=== PATIENT | female | born 1935 | race Caucasian/White ===

== ENCOUNTER → 2017-09-21 13:25 | Outpatient (CLI) | payer MEDICARE, SELFPAY ==
--- NOTE | 2017-09-21 13:47 | XR_ITS ---
XR chest 2V HISTORY: ITS.REASON: SOB, DM II , CHF ORDERING PHYSICIAN: Carlton Munoz PATIENT AGE: 82 years COMPARISON: 01/03/2017 FINDINGS: Cardiac pacemaker device is present with right atrial, and biventricular leads. There is mild cardiomegaly without failure. The lungs are clear without infiltrates, suspicious nodules, or pleural effusions. Small opacities are present over the anterior aspect of the chest with artifact No acute bony abnormalities. IMPRESSION: 1. Mild cardiomegaly with cardiac pacemaker device present. 2. Otherwise negative. No change with no acute finding
[2017-09-21 14:00] LABS: Basophils # 0.1 K/mm3 (0-0.2); Basophils % 0.6 % (0.1-2.0); Eosinophils # 0.4 K/mm3 (0.0-0.4); Eosinophils % 4.1 % (0.1-12.0); Hematocrit 41.8 % (37.0-47.0); Hemoglobin 13.6 g/dL (12.2-16.2); Lymphocytes # 3.8 K/mm3 (0.7-4.5); Lymphocytes % 39.1 K/mm3 (10-50); Mean Corpuscular HGB Conc 32.6 g/dL (31.8-35.4); Mean Corpuscular Hemoglobin 30.1 pg (27.0-31.2); Mean Corpuscular Volume 92.5 fl (81-99); Mean Platelet Volume 8.7 fl (7.4-10.4); Monocytes # 0.5 K/mm3 (0.1-1.0); Monocytes % 4.9 % (1.7-9.3); Neutrophils % 51.3 % (37.0-80.0); Platelet Count 202 K/mm3 (142-424); Red Blood Count 4.52 M/mm3 (4.20-5.40); Red Cell Distribution Width 12.7 % (11.5-17.5); White Blood Count 9.8 K/mm3 (4.8-10.8)
[2017-09-21 15:20] LABS: Hemoglobin A1C 6.9 % (0.0-7.0)
[2017-09-21 17:33] LABS: Anion Gap 10.2 mEq/L (5-15); Blood Urea Nitrogen 30 mg/dL (7-18); Carbon Dioxide 31 mmol/L (21.0-32.0); Chloride 102 mmol/L (98-107); Creatinine,Serum 1.29 mg/dL (0.55-1.02); Estimated Glomerular Filt Rate 40 ml/min (>60); GFR (African American) 48 ML/MIN (>60); Glucose 178 mg/dL (74-106); Potassium 4.2 mmoL/L (3.5-5.1); Sodium 139 mmol/L (136-145); Thyroid Stimulating Hormone 3.29 uIU/ml (0.358-3.740)
== END ==
PROVIDERS: PCP Family Medicine; Visit Provider Internal Medicine Cardiovascular Disease
DX: I50.9 Heart failure, unspecified (principal); E11.9 Type 2 diabetes mellitus without complications; R06.02 Shortness of breath
CPT/HCPCS: 36415; 71046; 80048; 83036; 83880; 84443; 85025

== ENCOUNTER → 2018-01-09 14:20 | Outpatient (CLI) | payer MEDICARE, SELFPAY ==
--- NOTE | 2018-01-09 | XR_ITS ---
XR foot LT min 3V HISTORY: Foot pain ITS.REASON: HEEL SPUR ORDERING PHYSICIAN: JULIA Mayes PATIENT AGE: 82 years COMPARISON: None FINDINGS: No fracture or dislocation. No lytic or blastic change. There is normal mineralization.. The joint spaces are well-preserved. No significant degenerative/arthritic changes. No erosive changes evident. There is a small calcaneal spur at 5 mm without erosive change IMPRESSION: Small calcaneal spur otherwise negative left foot
--- NOTE | 2018-01-09 14:26 | XR_ITS ---
XR tibia fibula LT 2V CLINICAL INDICATION: Posttraumatic pain ITS.REASON: INJURY OF LEFT LOWER EXTREMITY ORDERING PHYSICIAN: JULIA Mayes PATIENT AGE: 82 years Comparison: None FINDINGS: No fracture or dislocation. Minimal pretibial calcification noted along the lower tibia consistent with phleboliths IMPRESSION: No acute finding
== END ==
PROVIDERS: PCP Family Medicine; Visit Provider Physician Assistant
DX: S89.92XA Unspecified injury of left lower leg, initial encounter (principal); M79.672 Pain in left foot
CPT/HCPCS: 73590; 73630

== ENCOUNTER → 2018-06-04 10:22 | Outpatient (POV) | payer MEDICARE, SELFPAY | PROVIDERS: Visit Provider Dermatology | DX: Z00.00 Encounter for general adult medical examination without abnormal findings (principal) ==

== ENCOUNTER → 2019-06-24 16:18 | Outpatient (CLI) | payer MEDICARE, SELFPAY | PROVIDERS: Visit Provider Urology | DX: N39.0 Urinary tract infection, site not specified (principal) | CPT/HCPCS: 87086; 87088; 87186 ==

== ENCOUNTER → 2020-05-25 13:00 | Outpatient (CLI) | payer MEDICARE, SELFPAY | PROVIDERS: PCP Family Medicine; Visit Provider Family Medicine | DX: G47.33 Obstructive sleep apnea (adult) (pediatric) (principal); G47.10 Hypersomnia, unspecified | CPT/HCPCS: G0399 ==

== ENCOUNTER → 2020-06-10 11:59 | Outpatient (CLI) | payer MEDICARE, SELFPAY ==
[2020-06-10 13:43] LABS: Basophils # 0.1 K/mm3 (0-0.2); Eosinophils % 0.7 % (0.1-12.0); Hematocrit 42.1 % (37.0-47.0); Hemoglobin 13.4 g/dL (12.2-16.2); Lymphocytes % 31.8 % (10-50); Mean Corpuscular HGB Conc 31.9 g/dL (31.8-35.4); Mean Corpuscular Hemoglobin 30.7 pg (27.0-31.2); Mean Corpuscular Volume 96.4 fl (81-99); Mean Platelet Volume 9.5 fl (7.4-10.4); Monocytes # 0.6 K/mm3 (0.1-1.0); Monocytes % 8.7 % (1.7-9.3); Neutrophils # 3.7 K/mm3 (1.8-7.8); Neutrophils % 57.9 % (37.0-80.0); Platelet Count 138 K/mm3 (142-424); Red Blood Count 4.36 M/mm3 (4.20-5.40); Red Cell Distribution Width 12.7 % (11.5-17.5); White Blood Count 6.4 K/mm3 (4.8-10.8)
[2020-06-11 14:23] LABS: Covid-19 Nasal PCR Sendout Lex POSITIVE
== END ==
PROVIDERS: PCP Family Medicine; Visit Provider Family Medicine
DX: Z20.828 Contact with and (suspected) exposure to other viral communicable diseases (principal); U07.1 COVID-19
CPT/HCPCS: 85025; 87275; 87276; U0004

== ENCOUNTER 2020-06-11 15:57 | Emergency (ER) | payer MEDICARE, SELFPAY ==
[2020-06-11 16:03] VITALS: BP 185/89; PULSE 82; RESP 16; TEMP 36.8; O2SAT 98; BMI 31.4
[2020-06-11 16:27] VITALS: BP 171/86; PULSE 71; RESP 18; O2SAT 96
--- NOTE | 2020-06-11 16:35 | ECG_ITS ---
APPROVED REPORT Exam: Resting ECG HR:79 bpm ECG Measurements Heart Rate 79 AXES TX 262 P 69 QRSd 164 QRS 148 QT 486 T 21 QTc 557 Conclusion Electronic ventricular pacemaker Electronically signed by : Joseph Pettit, 06/28/2020 16:42:47
--- NOTE | 2020-06-11 16:41 | CT_ITS ---
PROCEDURE: CT CHEST WO CON CLINICAL INDICATION: SOB Shortness of breath, smoker, tested positive for COVID 19 virus COMPARISON: CT [facility] CT CHEST W/O CONTRAST from 03/01/2015 TECHNIQUE: Axial images obtained with sagittal and coronal reformats. All CT scans at the facility use one or more dose reduction, viz: automated exposure control, ma/kV adjustment per patient size (including targeted exams where dose is matched to indication, i.e. head), or iterative reconstruction technique. FINDINGS: Cardiac pacemaker device is present from left subclavian approach. There is a small hiatal hernia. Is biapical scarring. There is a 4 mm noncalcified nodule left upper lobe image 27 series 3. Atelectatic or fibrotic changes are present in the left lower lobe. There is an area of consolidation involving the superior segment of left lower lobe in the perihilar region consistent with pneumonia. No effusions. 4 mm nodules present in the right upper lobe series 3, image 33 unchanged. No effusions. No acute bony anomalies. Upper abdominal images show fatty liver and small hiatal hernia. Small nodes are present in the periportal region. IMPRESSION: Rounded area of heterogeneous consolidation in the left lower lobe consistent with pneumonia Other nonacute findings as described above Dictated by: Sánchez Goldberg MD 06/12/2020 08:18 Sánchez Goldberg MD in [place] 06/12/2020 08:18
--- NOTE | 2020-06-11 16:43 | HMH.EDSOB ---
ED Disposition Clinical Impression: Community acquired pneumonia Qualifiers: Laterality: left Lung location: lower lobe of lung Qualified Code(s): J18.9 - Pneumonia, unspecified organism Disposition: Home, Self-Care Condition on Discharge: Fair Instructions: DI for Pneumonia -- Adult, DI for Heart Failure Additional Instructions: Your labs CBC CMP are essentially within normal limits ABG shows normal findings troponin is not elevated AST and ALT are mildly elevated at 111 and 84 respectively her BNP is elevated at 1630; CT of the chest shows the following rounded area of heterogenous consolidation in left lower lobe suspicious for an infectious or inflammatory process such as viral pneumonia or ongoing pneumonia; oxygen saturation is 97% on room air; findings were discussed with Dr. Quintero who is bottom ironer and advises to cover her for pneumonia with Levaquin 1 dose here and then to be followed up at home; so we will give her 40 mg IV Lasix due to her history of an diagnosis of congestive heart failure Please do not hesitate to call us in case of any concerns Prescriptions: levoFLOXacin [Levaquin 500mg tab] 500 mg PO DAILY #7 tablet Referrals: Luc Corado MD [Primary Care Provider] - Time of Disposition: 19:01 - Critical Care Critical Care Time: No Attestation: On 06/11/20, the high probability of a clinically significant, sudden or life threatening deterioration of the following system(s) required my full and direct attention, intervention and personal management. The time I documented below is in addition to time spent performing reported procedures but includes the following listed in this critical care notation. Medical Decision Making - Medical Records Medical records reviewed: Yes: I reviewed the patient's medical records. MR Comment: Patient states that she had not been feeling well for several days and then went into dr Corado's office and got the news that she has been diagnosed with COVID 19. This made her very anxious and felt that she is short of breath. Dr Corado then sent her to the ER for further evaluation. Patient's labs and her CBC CMP are essentially within normal limits ABG shows normal findings troponin is not elevated AST and ALT are mildly elevated at 111 and 84 respectively her BNP is elevated at 1630; CT of the chest shows the following rounded area of heterogenous consolidation in left lower lobe suspicious for an infectious or inflammatory process such as viral pneumonia or ongoing pneumonia; Patient is stable with vital signs blood pressure is 162/84 heart rate is 110 pulse is 74 respirations are 20 and oxygen saturation is 97% on room air; findings were discussed with Dr. Quintero who is bottom ironer and advises to cover her for pneumonia with Levaquin 1 dose here and then to be followed up at home so we will give her 40 mg IV Lasix due to her history of an diagnosis of congestive heart failure patient does not wish to stay in the hospital and she has good support at home she herself is quite alert and active and has 2 daughters to call upon in case of any concerns and Dr. Quintero has is quite aware of patient - Peter Inquiry Pt receiving controlled substance: No Vital Signs: 06/11/20 16:03 06/11/20 16:27 06/11/20 17:01 Temperature 98.2 F Temperature Source Oral Pulse Rate [Radial] 82 71 74 Respiratory Rate 16 18 20 Blood Pressure [Right Arm] 185/89 H 171/86 H 162/84 H Blood Pressure Mean [Right Arm] 121 114 110 Blood Pressure Source [Right Arm] Automatic Cuff Automatic Cuff Blood Pressure Position [Right Arm] Sitting Sitting Sitting 02 Sat by Pulse Oximetry 98 96 97 Oxygen Delivery Method Room Air Room Air - Lab Data Lab results reviewed: Yes: I reviewed the patient's lab results. Lab Results 06/11/20 16:25: WBC 6.7, RBC 4.50, Hgb 14.0, Hct 42.6, MCV 94.6, MCH 31.1, MCHC 32.9, RDW 12.8, Plt Count 141 L, MPV 9.3, Neut % (Auto) 49.5, Lymph % (Auto) 41.8, [place] % (Auto) 6.8, Eos
[2020-06-11 17:00] LABS: Basophils # 0.1 K/mm3 (0-0.2); Basophils % 1.4 % (0.1-2.0); Eosinophils % 0.4 % (0.1-12.0); Hematocrit 42.6 % (37.0-47.0); Lymphocytes # 2.8 K/mm3 (0.7-4.5); Lymphocytes % 41.8 % (10-50); Mean Corpuscular HGB Conc 32.9 g/dL (31.8-35.4); Mean Corpuscular Hemoglobin 31.1 pg (27.0-31.2); Mean Corpuscular Volume 94.6 fl (81-99); Mean Platelet Volume 9.3 fl (7.4-10.4); Monocytes # 0.5 K/mm3 (0.1-1.0); Monocytes % 6.8 % (1.7-9.3); Neutrophils # 3.3 K/mm3 (1.8-7.8); Neutrophils % 49.5 % (37.0-80.0); Platelet Count 141 K/mm3 (142-424); Red Cell Distribution Width 12.8 % (11.5-17.5); White Blood Count 6.7 K/mm3 (4.8-10.8)
[2020-06-11 17:01] VITALS: BP 162/84; PULSE 74; RESP 20; O2SAT 97
[2020-06-11 17:04] LABS: ABG Base Excess 0.1 mmol/L (-2.4-2.3); ABG HCO3 24.3 mmhg (22.0-26.0); ABG Oxygen Saturation 96 % (90-100); ABG PCO2 36.9 mmhg (35.0-45.0); ABG PH 7.44 mmol/L (7.35-7.45); ABG PO2 80.7 mmhg (80-100); ABG TCO2 25.4 mmhg (23-27)
[2020-06-11 17:05] LABS: Chloride 99 mmol/L (98-107); Sodium 136 mmol/L (136-145)
[2020-06-11 17:06] LABS: Potassium 4.2 mmoL/L (3.5-5.1)
[2020-06-11 17:07] LABS: Allen's Test Acceptable; Oxygen room air %; Source Left Radial
[2020-06-11 17:08] LABS: Alanine Aminotransferase 84 U/L (12-78); Alkaline Phosphatase 89 U/L (38-126); Aspartate Amino Transferase 111 U/L (14-36); Bilirubin,Total 0.5 mg/dl (0.2-1.3); Blood Urea Nitrogen 17 mg/dl (7-17); Creatine Kinase 98 U/L (30-135); Creatinine Clearance Estimated 43 mL/min (50-200); Estimated Glomerular Filt Rate 39 ml/min (>60); GFR (African American) 47 ML/MIN (>60)
[2020-06-11 17:09] LABS: Albumin/Globulin Ratio 1.2 (1.1-1.8); Anion Gap 13.2 mEq/L (5-15); Calcium 8.9 mg/dl (8.4-10.2); Carbon Dioxide 28 mmol/L (22.0-30.0); Globulin 3.3 g/dL (1.3-3.2); Glucose 230 mg/dl (74-100); Total Protein,Serum 7.3 g/dl (6.3-8.2)
[2020-06-11 17:17] LABS: Creatine Kinase MB 0.7 ng/ml (0.0-2.03)
[2020-06-11 17:18] LABS: NT Pro Brain Natriuretic Pep. 1630 pg/mL (0-450)
[2020-06-11 17:22] LABS: Troponin I < 0.01 ng/ml (0.00-0.034)
--- NOTE | 2020-06-11 18:36 | PC.NURSE ---
Dr Leon warner.
[2020-06-11 19:14] VITALS: BP 157/81; PULSE 73; RESP 16; TEMP 36.7; O2SAT 98
== END 2020-06-11 19:19 | disposition home or self-care (01) ==
PROVIDERS: Emergency Provider Emergency Medicine; PCP Family Medicine
DX: U07.1 COVID-19 (principal); J12.89 Other viral pneumonia
CPT/HCPCS: 71250; 80053; 82550; 82553; 82803; 83880; 84484; 85025; 93005; 96374; 99283

== ENCOUNTER 2020-06-12 10:24 | Inpatient (IN) | payer MEDICARE, SELFPAY ==
[2020-06-12] VITALS (12 sets, daily range): BP systolic 123–153; BP diastolic 58–84; PULSE 69–85; RESP 16–20; TEMP 36.9–37.2; O2SAT 93–99; BMI 30.9; BMI 29.3
--- NOTE | 2020-06-12 10:31 | HMH.EDGENADL ---
ED Disposition Clinical Impression: COVID-19, Near syncope Pneumonia Qualifiers: Pneumonia type: due to unspecified organism Laterality: left Lung location: upper lobe of lung Qualified Code(s): J18.9 - Pneumonia, unspecified organism Disposition: Admitted as Observation Condition on Discharge: Fair - Critical Care Critical Care Time: No Attestation: On , the high probability of a clinically significant, sudden or life threatening deterioration of the following system(s) required my full and direct attention, intervention and personal management. The time I documented below is in addition to time spent performing reported procedures but includes the following listed in this critical care notation. Medical Decision Making - Medical Records Medical records reviewed: Yes: I reviewed the patient's medical records. - Peter Inquiry Pt receiving controlled substance: No Vital Signs: 06/12/20 10:24 06/12/20 10:37 06/12/20 10:44 Temperature 98.6 F Temperature Source Oral Pulse Rate [Apical] Pulse Rate [Left Radial] 69 70 Pulse Rate [Orthostatic Lying Left Radial] 70 Pulse Rate [Orthostatic Sitting Left Radial] 72 Pulse Rate [Orthostatic Standing Left Radial] 76 Respiratory Rate 20 Blood Pressure [Orthostatic Lying Right Arm] 148/66 H Blood Pressure [Orthostatic Sitting Right Arm] 152/76 H Blood Pressure [Orthostatic Standing Right Arm] 150/84 H Blood Pressure [Right Arm] 123/74 123/74 Blood Pressure Mean [Right Arm] 90 90 Blood Pressure Source [Right Arm] Automatic Cuff Blood Pressure Position [Right Arm] Sitting 02 Sat by Pulse Oximetry 98 97 Oxygen Delivery Method Room Air Room Air 06/12/20 10:55 06/12/20 11:45 06/12/20 12:21 Temperature Temperature Source Pulse Rate [Apical] Pulse Rate [Left Radial] 69 69 70 Pulse Rate [Orthostatic Lying Left Radial] Pulse Rate [Orthostatic Sitting Left Radial] Pulse Rate [Orthostatic Standing Left Radial] Respiratory Rate Blood Pressure [Orthostatic Lying Right Arm] Blood Pressure [Orthostatic Sitting Right Arm] Blood Pressure [Orthostatic Standing Right Arm] Blood Pressure [Right Arm] 140/66 136/58 L 150/84 H Blood Pressure Mean [Right Arm] 90 84 106 Blood Pressure Source [Right Arm] Automatic Cuff Automatic Cuff Automatic Cuff Blood Pressure Position [Right Arm] Sitting Sitting Sitting 02 Sat by Pulse Oximetry 97 96 95 Oxygen Delivery Method Room Air Room Air Room Air 06/12/20 12:34 06/12/20 13:00 06/12/20 13:06 Temperature 98.9 F Temperature Source Oral Pulse Rate [Apical] 72 Pulse Rate [Left Radial] 69 72 Pulse Rate [Orthostatic Lying Left Radial] Pulse Rate [Orthostatic Sitting Left Radial] Pulse Rate [Orthostatic Standing Left Radial] Respiratory Rate 16 Blood Pressure [Orthostatic Lying Right Arm] Blood Pressure [Orthostatic Sitting Right Arm] Blood Pressure [Orthostatic Standing Right Arm] Blood Pressure [Right Arm] 142/58 H 153/68 H Blood Pressure Mean [Right Arm] 86 96 Blood Pressure Source [Right Arm] Automatic Cuff Automatic Cuff Blood Pressure Position [Right Arm] Sitting Supine 02 Sat by Pulse Oximetry 95 99 Oxygen Delivery Method Room Air Room Air Room Air - Lab Data Lab results reviewed: Yes: I reviewed the patient's lab results. Lab Results 06/12/20 11:25: WBC 6.6, RBC 4.67, Hgb 14.2, Hct 44.2, MCV 94.6, MCH 30.4, MCHC 32.2, RDW 13.3, Plt Count 151, MPV 9.5, Neut % (Auto) 57.1, Lymph % (Auto) 35.8, [place] % (Auto) 6.1, Eos % (Auto) 0.3, Baso % (Auto) 0.7, Neut # (Auto) 3.8, Lymph # (Auto) 2.4, [place] # (Auto) 0.4, Eos # (Auto) 0.0, Baso # (Auto) 0.0 06/12/20 11:25: Sodium 134 L, Potassium 4.4, Chloride 95 L, Carbon Dioxide 29, Anion Gap 14.4, BUN 19 H, Creatinine 1.50 H, Estimated Creat Clear 37, Estimated GFR 33 L, Est GFR ( Amer) 40 L, Glucose 274 H, Calcium 9.0, Total Bilirubin 0.5, AST 90 H, ALT 74, Alkaline Phosphatase 80, Troponin I < 0.01, Total
--- NOTE | 2020-06-12 10:39 | XR_ITS ---
PROCEDURE: XR CHEST PORTABLE CLINICAL HISTORY: weakness Newly diagnosed COVID 19 COMPARISON: CR CXR CHEST(2 VIEWS-NOT PORTABLE) from 03/02/2015 CR CXR CHEST(2 VIEWS-NOT PORTABLE) from 01/03/2017 CR CXR2V XR chest 2V from 09/21/[address] CHEST WO CON from 06/11/2020 FINDINGS: Mild cardiomegaly without failure. Biventricular pacemaker is present from left subclavian approach with right atrial lead. Lungs are clear. No acute bony anomalies. IMPRESSION: No acute findings. Dictated by: Sánchez Goldberg MD 06/12/2020 12:14 Sánchez Goldberg MD in [place] 06/12/2020 12:14
--- NOTE | 2020-06-12 11:11 | ECG_ITS ---
APPROVED REPORT Exam: Resting ECG HR:70 bpm ECG Measurements Heart Rate 70 AXES QRSd 168 QRS 133 QT 486 T 77 QTc 524 Conclusion Electronic ventricular pacemaker Electronically signed by : Remy Corcoran, 06/13/2020 09:40:40
[2020-06-12 11:32] LABS: Basophils % 0.7 % (0.1-2.0); Eosinophils % 0.3 % (0.1-12.0); Hematocrit 44.2 % (37.0-47.0); Hemoglobin 14.2 g/dL (12.2-16.2); Lymphocytes # 2.4 K/mm3 (0.7-4.5); Lymphocytes % 35.8 % (10-50); Mean Corpuscular HGB Conc 32.2 g/dL (31.8-35.4); Mean Corpuscular Hemoglobin 30.4 pg (27.0-31.2); Mean Corpuscular Volume 94.6 fl (81-99); Mean Platelet Volume 9.5 fl (7.4-10.4); Monocytes # 0.4 K/mm3 (0.1-1.0); Monocytes % 6.1 % (1.7-9.3); Neutrophils # 3.8 K/mm3 (1.8-7.8); Neutrophils % 57.1 % (37.0-80.0); Platelet Count 151 K/mm3 (142-424); Red Blood Count 4.67 M/mm3 (4.20-5.40); Red Cell Distribution Width 13.3 % (11.5-17.5); White Blood Count 6.6 K/mm3 (4.8-10.8)
[2020-06-12 11:38] LABS: Chloride 95 mmol/L (98-107); Potassium 4.4 mmoL/L (3.5-5.1); Sodium 134 mmol/L (136-145)
[2020-06-12 11:40] LABS: Blood Urea Nitrogen 19 mg/dl (7-17); Creatinine Clearance Estimated 37 mL/min (50-200); Estimated Glomerular Filt Rate 33 ml/min (>60); GFR (African American) 40 ML/MIN (>60)
[2020-06-12 11:41] LABS: Alanine Aminotransferase 74 U/L (12-78); Albumin Level 3.9 g/dl (3.5-5.0); Albumin/Globulin Ratio 1.3 (1.1-1.8); Alkaline Phosphatase 80 U/L (38-126); Anion Gap 14.4 mEq/L (5-15); Aspartate Amino Transferase 90 U/L (14-36); Bilirubin,Total 0.5 mg/dl (0.2-1.3); Carbon Dioxide 29 mmol/L (22.0-30.0); Glucose 274 mg/dl (74-100); Total Protein,Serum 6.9 g/dl (6.3-8.2)
[2020-06-12 11:53] LABS: Troponin I < 0.01 ng/ml (0.00-0.034)
--- NOTE | 2020-06-12 12:08 | PC.NURSE ---
paging cotton ball machine tender for Dr Corado
--- NOTE | 2020-06-12 12:22 | PC.NURSE ---
Dr Quintero returned call.
--- NOTE | 2020-06-12 12:34 | PC.NURSE ---
Cover Machine Operator aware of admission and will assign bed.
[2020-06-12 14:17] LABS: Troponin I < 0.01 ng/ml (0.00-0.034)
[2020-06-12 15:51] LABS: POC Glucose,Bedside 430 (70-110)
[2020-06-12 17:42] LABS: Troponin I < 0.01 ng/ml (0.00-0.034)
--- NOTE | 2020-06-12 17:58 | PC.NURSE ---
Pt was a new admit this shift from the ER for COVID-19 and Pneumonia. Pt has been pleasant and cooperative. A&O X4. No complaints of pain or SOA. Skin is C/D/I and no edema is noted. Lungs CTA. Pt is on room air with sats. >92%. Pt ambulates with stand-by assistance to/from the bathroom and voids clear, dark, yellow urine without issue. No BM this shift. FSBS result at 1600 was 430 and required 12 units of insulin per sliding scale. Telemetry reveals a paced rhythm. 20 G peripheral IV in the LT AC is patent and infusing NS @ 50 ML/HR. B/P has been slightly elevated since admission and pt reports that she didn't take any of her medications this AM (Including Lisinopril, Bisoprolol, and Amlodipine). Other VSS. Call light within reach. Will continue to monitor.
[2020-06-12 21:22] LABS: POC Glucose,Bedside 69 (70-110)
[2020-06-13] VITALS (7 sets, daily range): BP systolic 142–180; BP diastolic 60–81; PULSE 69–77; RESP 16–20; TEMP 36.2–37.2; O2SAT 93–95; BMI 30.5
--- NOTE | 2020-06-13 04:28 | PC.NURSE ---
shift summary, no acute changes since prior assessment, pt has rested well t/o shift, has had no complaints of SOA, chest pain, has remained afebrile t/o shift, has ambulated to toilet 3 x with standby assistance, lungs remain CTA, pt remains on room air with sats between 93-95%
[2020-06-13 05:27] LABS: POC Glucose,Bedside 111 (70-110)
--- NOTE | 2020-06-13 08:24 | HMH.HP ---
*Admission Date: 06/12/20 *Chief complaint: [place] faint *History of present illness: 84 [address] old patient of Dr. Mei who called the office of A this past , 06/10/20, with a few day history of fever and URI symptoms. Covid 19 swab was ordered and resulted positive the next day and patient was notified. At that time, she stated she had felt short of breath and she thought Covid 19 was a sentence for her. She was directed to come to the ER for an evaluation. She had an extensive work up in the ER on the afternoon of 06/11/20. She was not hypoxic but a CT scan of the chest showed a focal area of pneumonia. Patient was treated with Levaquin and discharged home. The next day, 06/12/20 she was cooking an egg at her stove and felt faint. At that point, she called 911 for transport to [facility] She states she has been having more intestinal issues over the past 24 hours, consisting of Nausea and diarrhea. [facility] History Medical History: Reports:: Atrial Fibrillation, Congestive Heart Failure, Diabetes Mellitus Type 2, Hyperlipidemia, Hypertension, Internal Pacemaker Denies:: Cancer, Diabetes Mellitus Type 1, MRSA *Have you ever received a pneumonia vaccine?: Yes *Have you received a flu vaccine this season?: No Other Medical History: Reports: Hypothyroidism Other Surgeries: Yes: Appendectomy, Cholecystectomy, Colonoscopy, Pacemaker Amputation: No Fractures: No - *Social History Last grade of school completed: Advanced degree Smoking Status: Never smoker Alcohol Intake: never Substance Use Type: denies use *Occupational Status:: retired Housing: house Household Members: other *Travel in the last 8 weeks: None Family Hx:: No significant family history Review of Systems - Constitutional Denies chills, Denies fever(s) - Eyes Denies blurry vision - ENT Denies dizziness - *Cardiovascular Denies chest pain - *Respiratory Reports shortness of breath, Denies cough - *Gastrointestinal Reports nausea - *Genitourinary Reports vaginal discharge (thinks she has a yeast infection) - *Musculoskeletal Denies back pain - Integumentary/Breasts Denies rash - *Neurologic Reports headache(s), Reports weakness - Psychiatric Reports anxiety, Denies confusion Meds Home Medications Medication Instructions Recorded Confirmed Type alprazolam 0.5 mg tablet 0.5 mg PO DAILY 06/24/19 06/12/20 History apixaban 5 mg tablet 5 mg PO BID 06/24/19 06/12/20 History bisoprolol fumarate 5 mg tablet 5 mg PO DAILY 06/24/19 06/12/20 History furosemide 20 mg tablet 20 mg PO DAILY 06/24/19 06/12/20 History levothyroxine 88 mcg tablet 88 mcg PO DAILY 06/24/19 06/12/20 History lisinopril 20 mg tablet 20 mg PO DAILY 06/24/19 06/12/20 History Amlodipine Besylate 5 mg PO DAILY 06/12/20 06/12/20 History Allergies Allergy/AdvReac Type Severity Reaction Status Date / Time bee venom protein (honey bee) Allergy Unknown Unknown Verified 06/12/20 10:49 allergy reaction meperidine Allergy Unknown Unknown Verified 06/12/20 10:49 allergy reaction methylprednisolone Allergy Unknown Hives Verified 06/12/20 10:49 Penicillins Allergy Unknown Unknown Verified 06/12/20 10:49 allergy reaction Exam Vital signs and Labs for Last 24 Hours: Temp Pulse Resp BP Pulse Ox 98.3 F 70 16 155/77 H 95 06/13/20 04:00 06/13/20 04:00 06/13/20 04:00 06/13/20 04:00 06/13/20 04:00 Laboratory Results - last 24 hr 06/12/20 11:25: WBC 6.6, RBC 4.67, Hgb 14.2, Hct 44.2, MCV 94.6, MCH 30.4, MCHC 32.2, RDW 13.3, Plt Count 151, MPV 9.5, Neut % (Auto) 57.1, Lymph % (Auto) 35.8, [place] % (Auto) 6.1, Eos % (Auto) 0.3, Baso % (Auto) 0.7, Neut # (Auto) 3.8, Lymph # (Auto) 2.4, [place] # (Auto) 0.4, Eos # (Auto) 0.0, Baso # (Auto) 0.0 06/12/20 11:25: Sodium 134 L, Potassium 4.4, Chloride 95 L, Carbon Dioxide 29, Anion Gap 14.4, BUN 19 H, Creatinine 1.50 H, Estimated Creat Clear 37, Estimated GFR 33 L, Est GFR ( Amer) 40 L, Gl
[2020-06-13 12:10] LABS: POC Glucose,Bedside 238 (70-110)
[2020-06-13 16:22] LABS: POC Glucose,Bedside 258 (70-110)
--- NOTE | 2020-06-13 17:42 | PC.NURSE ---
Pt has been pleasant and cooperative this shift. A&O X4. No complaints of pain or SOA. Pt has complained of nausea and has been medicated with Zofran per OCT X2. No vomiting. Pt has had 2 episodes of diarrhea thus far. Imodium requested per pt and order received per Dr. Quintero. Given X2 this shift and no occurrence of diarrhea since. Pt educated regarding the need for a diarrhea panel if/when a 3rd episode occurs. Lungs CTA No edema noted. Skin is C/D/I. Pt is on room air with sats. >92%. Pt ambulates with stand-by assistance to/from the bathroom and in her room. Pt sat up in the recliner for a couple hours this AM. Telemetry reveals a paced rhythm. Pt uses the toilet and voids clear, yellow urine without issue. 20 G peripheral IV in the LT AC is patent and infusing NS @ 50 ML/HR. FSBS results have been 238 and 258, both of which required insulin coverage per sliding scale. B/P remains elevated. Other VSS. Call light within reach. Will continue to monitor.
[2020-06-13 20:50] LABS: POC Glucose,Bedside 244 (70-110)
[2020-06-14] VITALS: BP 138/77; PULSE 76; RESP 16; TEMP 36.8; O2SAT 96
--- NOTE | 2020-06-14 03:48 | PC.NURSE ---
shift summary, no acute changes since prior assessment, pt has rested well t/o shift, ambulated twice to bathroom so far, voiding clear, yellow urine, pt has had no complaints of SOA or N/V, pt remains on room air with O2 sats between 95-97%, lungs remain CTA
[2020-06-14 04:00] VITALS: BP 139/76; PULSE 74; RESP 16; TEMP 36.7; O2SAT 97
[2020-06-14 06:18] LABS: POC Glucose,Bedside 200 (70-110)
[2020-06-14 08:00] VITALS: BP 168/75; PULSE 68; RESP 20; TEMP 36.2; O2SAT 96
[2020-06-14 08:13] LABS: Basophils % 0.3 % (0.1-2.0); Hemoglobin 13.7 g/dL (12.2-16.2); Lymphocytes # 1.2 K/mm3 (0.7-4.5); Lymphocytes % 32.2 % (10-50); Mean Corpuscular HGB Conc 33.5 g/dL (31.8-35.4); Mean Corpuscular Hemoglobin 30.8 pg (27.0-31.2); Mean Platelet Volume 9.5 fl (7.4-10.4); Monocytes # 0.2 K/mm3 (0.1-1.0); Monocytes % 4.4 % (1.7-9.3); Neutrophils # 2.3 K/mm3 (1.8-7.8); Platelet Count 128 K/mm3 (142-424); Red Blood Count 4.45 M/mm3 (4.20-5.40); Red Cell Distribution Width 13.4 % (11.5-17.5); White Blood Count 3.6 K/mm3 (4.8-10.8)
[2020-06-14 08:37] LABS: Chloride 105 mmol/L (98-107)
[2020-06-14 08:38] LABS: Potassium 4.2 mmoL/L (3.5-5.1); Sodium 137 mmol/L (136-145)
[2020-06-14 08:40] LABS: Bilirubin,Unconjugated 0.3 mg/dL (0.0-1.1); Blood Urea Nitrogen 18 mg/dl (7-17); Creatinine Clearance Estimated 55 mL/min (50-200); Estimated Glomerular Filt Rate 53 ml/min (>60); GFR (African American) 64 ML/MIN (>60)
[2020-06-14 08:41] LABS: Alanine Aminotransferase 62 U/L (12-78); Albumin Level 3.4 g/dl (3.5-5.0); Alkaline Phosphatase 65 U/L (38-126); Anion Gap 13.2 mEq/L (5-15); Aspartate Amino Transferase 75 U/L (14-36); Bilirubin,Direct 0.1 mg/dl (0.0-0.4); Bilirubin,Indirect 0.3 mg/dL (0.0-0.9); Bilirubin,Total 0.4 mg/dl (0.2-1.3); Calcium 8.9 mg/dl (8.4-10.2); Carbon Dioxide 23 mmol/L (22.0-30.0); Glucose 211 mg/dl (74-100); Total Protein,Serum 6.4 g/dl (6.3-8.2)
[2020-06-14 08:59] LABS: Hemoglobin A1C 8.9 % (4.0-6.0)
[2020-06-14 11:53] LABS: POC Glucose,Bedside 306 (70-110)
[2020-06-14 16:00] VITALS: BP 169/67; PULSE 70; RESP 18; TEMP 36.2; O2SAT 98
[2020-06-14 16:32] LABS: POC Glucose,Bedside 428 (70-110)
[2020-06-14 16:53] VITALS: BMI 30.4
--- NOTE | 2020-06-14 18:32 | PC.NURSE ---
PATIENT A&O X4, LUNGS CLEAR, PULSES EQUAL. AT START OF SHIFT PATIENT STATED THAT SHE COULD NOT EAT THE MEAL PROVIDED FOR BREAKFAST, PATIENT INFORMED THIS RN THAT THE HOLT HAS AFFECTED HER STOMACH. PATIENT STATED THAT SHE WOULD LIKE TO BE PUT 0N A BLAND DIET. THIS RN INFOMED DR. TAYE MD STATED OKAY. DIETARY PHONED THIS RN TO INQUIRED OF PATIENT. THIS RN REPORTED INFORMATION TO DIETARY, NEW ORDERS WERE PUT IN FOR BLAND DIET. PATIENT AMBULATES TO BATHROOM, UNSTEADY GAIT, 1X ASSIST. PATIENT HAS HAD A GOOD APPETITE THRU THIS RN SHIFT. NO COMPLAINTS OF PAIN.
[2020-06-14 20:00] VITALS: BP 175/73; PULSE 74; RESP 16; TEMP 36.2; O2SAT 98
[2020-06-15] VITALS (7 sets, daily range): BP systolic 107–163; BP diastolic 70–86; PULSE 70–73; RESP 16–20; TEMP 36.1–36.8; O2SAT 94–96; BMI 30.6
--- NOTE | 2020-06-15 04:43 | PC.NURSE ---
A&OX3. CAP SEWER EQUAL BILAT. LUNGS NOTED WITH WHEEZING PER AUSCULTATION. TOLERATED RA WELL. PULSES +2, CAP REFILL <3 SEC. ABDOMEN NONDISTENDED, SOFT AND NONTENDER PER PALPATION. PT REPORTS I HAVE BEEN HAVING A LITTLE ITCHING DOWN THERE IN MY AVIS AREA FROM ALL THOSE ANTIBIOTICS. I HAVE BEEN EATING YOGURT AND THAT HAS SEEMED TO HELP SOME BUT IT HASN'T COMPLETELY GONE AWAY. MAYBE WE CAN TALK TO THE DOCTOR IN THE MORNING ABOUT GETTING ME STARTED ON SOMETHING TO PREVENT A YEAST INFECTION. OFFERED TO CALL MD AT BEGINNING OF SHIFT. PT STATED NO IT IS OKAY I JUST WANT TO TAKE MY XANAX AND GO TO BED TONIGHT AND WE WILL JUST TALK TO HIM IN THE MORNING. PT TOLERATED AMBULATION TO AND FROM BATHROOM WELL WITH SBA. VSS. WILL CONTINUE TO MONITOR.
[2020-06-15 06:58] LABS: Alanine Aminotransferase 56 U/L (12-78); Aspartate Amino Transferase 63 U/L (14-36); Bilirubin,Unconjugated 0.3 mg/dL (0.0-1.1)
[2020-06-15 06:59] LABS: Albumin Level 3.4 g/dl (3.5-5.0); Alkaline Phosphatase 70 U/L (38-126); Bilirubin,Indirect 0.3 mg/dL (0.0-0.9); Bilirubin,Total 0.3 mg/dl (0.2-1.3); Total Protein,Serum 6.3 g/dl (6.3-8.2)
--- NOTE | 2020-06-15 08:59 | HMH.ACPN2 ---
Internal Medicine - PN: Subj *Date: 06/14/20 *Time: 09:15 Interval history: This note was omitted yesterday AM (06/14/2020), but the patient was seen and examined, after prior chart review. She was found to be feeling well, with no dyspnea. She has had some diarrhea. VS are stable. Has received Remdesivir and Dexamethasone. Exam Vital signs and Labs for Last 24 Hours: Temp Pulse Resp BP Pulse Ox 97.8 F 70 18 142/70 H 96 06/15/20 04:00 06/15/20 04:00 06/15/20 04:00 06/15/20 04:00 06/15/20 04:00 Laboratory Results - last 24 hr 06/14/20 06:15: Hemoglobin A1c 8.9 H 06/14/20 06:15: Sodium 137, Potassium 4.2, Chloride 105, Carbon Dioxide 23 D, Anion Gap 13.2, BUN 18 H, Creatinine 1.00 D, Estimated Creat Clear 55, Estimated GFR 53 L, Est GFR ( Amer) 64 D, Glucose 211 H, Calcium 8.9, Total Bilirubin 0.4, Direct Bilirubin 0.1, Conjugated Bilirubin 0.0, Indirect Bilirubin 0.3, Unconjugated Bilirubin 0.3, AST 75 H, ALT 62, Alkaline Phosphatase 65, Total Protein 6.4, Albumin 3.4 L 06/14/20 11:46: POC Glucose 306 H* 06/14/20 16:23: POC Glucose 428 H* 06/15/20 05:00: Total Bilirubin 0.3, Direct Bilirubin 0.0, Conjugated Bilirubin 0.0, Indirect Bilirubin 0.3, Unconjugated Bilirubin 0.3, AST 63 H, ALT 56, Alkaline Phosphatase 70, Total Protein 6.3, Albumin 3.4 L I & O for Last 24 hours: Intake & Output 06/12/20 06/13/20 06/14/20 06/15/20 11:59 11:59 11:59 11:59 Intake Total 2653 / 2653 1442 / 1442 1981 / 1981 Output Total 1200 / 1200 1450 / 1450 2600 / 2600 Balance 1453 / 1453 -8 / -8 -618 / -618 Weight 180 lb 179 lb 179 lb 5 oz - Constitutional no acute distress - *Routine HEENT Exam Head: Present: normocephalic Eye: Present: PERRL ENT: Present: mucous membranes moist - *Routine Respiratory Exam Present: CTA bilaterally. Absent: respiratory distress - *Routine Cardiovascular Exam Present: RRR - *Routine Abdominal Exam Present: soft. Absent: tenderness - *Routine Extremities Exam Absent: edema - *Routine Skin Exam Present: intact - *Routine Neurological Exam Present: alert, oriented X3 Assessment and Plan (1) COVID-19 Status: Acute Category: Medical Code(s): U07.1 - COVID-19 (2) Near syncope Status: Acute Category: Medical Code(s): R55 - Syncope and collapse (3) Community acquired pneumonia Status: Acute Qualifiers: Laterality: left Lung location: lower lobe of lung Qualified Code(s): J18.9 - Pneumonia, unspecified organism Category: Medical Code(s): J18.9 - Pneumonia, unspecified organism (4) A-fib Status: Acute Category: Medical Code(s): I48.91 - Unspecified atrial fibrillation (5) CHF (congestive heart failure) Status: Acute Category: Medical Code(s): I50.9 - Heart failure, unspecified (6) Anxiety Status: Acute Category: Medical Code(s): F41.9 - Anxiety disorder, unspecified (7) DM2 (diabetes mellitus, type 2) Status: Acute Category: Medical Code(s): E11.9 - Type 2 diabetes mellitus without complications (8) HTN (hypertension) Status: Acute Category: Medical Code(s): I10 - Essential (primary) hypertension - Assessment and plan all Dx Assessment and Plan for all problems:: Continue present care.
--- NOTE | 2020-06-15 09:51 | HMH.ACPN ---
Internal Medicine - PN: Subj *Date: 06/15/20 *Time: 09:51 Exam Vital signs and Labs for Last 24 Hours: Temp Pulse Resp BP Pulse Ox 97.0 F L 70 20 107/86 L 95 06/15/20 08:00 06/15/20 08:00 06/15/20 08:00 06/15/20 08:00 06/15/20 08:00 Laboratory Results - last 24 hr 06/14/20 11:46: POC Glucose 306 H* 06/14/20 16:23: POC Glucose 428 H* 06/15/20 05:00: Total Bilirubin 0.3, Direct Bilirubin 0.0, Conjugated Bilirubin 0.0, Indirect Bilirubin 0.3, Unconjugated Bilirubin 0.3, AST 63 H, ALT 56, Alkaline Phosphatase 70, Total Protein 6.3, Albumin 3.4 L I & O for Last 24 hours: Intake & Output 06/12/20 06/13/20 06/14/20 06/15/20 23:59 23:59 23:59 23:59 Intake Total 1507 / 1627 2228 / 2228 1800 / 1800 782 / 782 Output Total 400 / 650 1800 / 1950 1750 / 1750 1300 / 1300 Balance 1107 / 977 428 / 278 50 / 50 -518 / -518 Weight 77.621 kg 81.193 kg 81 kg 81.335 kg Assessment and Plan (1) COVID-19 Status: Acute Category: Medical Code(s): U07.1 - COVID-19 (2) Near syncope Status: Acute Category: Medical Code(s): R55 - Syncope and collapse (3) Community acquired pneumonia Status: Acute Qualifiers: Laterality: left Lung location: lower lobe of lung Qualified Code(s): J18.9 - Pneumonia, unspecified organism Category: Medical Code(s): J18.9 - Pneumonia, unspecified organism (4) A-fib Status: Acute Category: Medical Code(s): I48.91 - Unspecified atrial fibrillation (5) CHF (congestive heart failure) Status: Acute Category: Medical Code(s): I50.9 - Heart failure, unspecified (6) Anxiety Status: Acute Category: Medical Code(s): F41.9 - Anxiety disorder, unspecified (7) DM2 (diabetes mellitus, type 2) Status: Acute Category: Medical Code(s): E11.9 - Type 2 diabetes mellitus without complications (8) HTN (hypertension) Status: Acute Category: Medical Code(s): I10 - Essential (primary) hypertension The patient's infection will respond to the chosen ABx?: Yes Is the patient receiving the right drug, dose, and route?: Yes Could a more targeted ABx be ordered?: No (AFEBRILE, WBC LOW, SPUTUM CULTURE REORDERED.)
--- NOTE | 2020-06-15 10:15 | HMH.ACPN2 ---
Internal Medicine - PN: Subj *Date: 06/15/20 *Time: 10:15 Interval history: Remains stable be has developed more of a cough. This was discussed with Dr. Pearson. He may adjust antibiotics. Will repeat CXR in AM. Also c/o yeast vaginitis symptoms. Exam Vital signs and Labs for Last 24 Hours: Temp Pulse Resp BP Pulse Ox 97.0 F L 70 20 107/86 L 94 L 06/15/20 08:00 06/15/20 08:00 06/15/20 08:00 06/15/20 08:00 06/15/20 08:00 Laboratory Results - last 24 hr 06/14/20 11:46: POC Glucose 306 H* 06/14/20 16:23: POC Glucose 428 H* 06/15/20 05:00: Total Bilirubin 0.3, Direct Bilirubin 0.0, Conjugated Bilirubin 0.0, Indirect Bilirubin 0.3, Unconjugated Bilirubin 0.3, AST 63 H, ALT 56, Alkaline Phosphatase 70, Total Protein 6.3, Albumin 3.4 L I & O for Last 24 hours: Intake & Output 06/12/20 06/13/20 06/14/20 06/15/20 11:59 11:59 11:59 11:59 Intake Total 2653 / 2653 1442 / 1442 2222 / 2222 Output Total 1200 / 1200 1450 / 1450 2600 / 2600 Balance 1453 / 1453 -8 / -8 -378 / -378 Weight 180 lb 179 lb 179 lb 5 oz - Constitutional no acute distress - *Routine HEENT Exam Eye: Present: PERRL ENT: Present: mucous membranes moist - *Routine Neck Exam Absent: JVD - Routine Chest/Breast/Axilla Exam Chest wall: Absent: tenderness - *Routine Cardiovascular Exam Present: RRR - *Routine Extremities Exam Absent: edema - *Routine Neurological Exam Present: alert, oriented X3 Assessment and Plan (1) COVID-19 Status: Acute Category: Medical Code(s): U07.1 - COVID-19 (2) Near syncope Status: Acute Category: Medical Code(s): R55 - Syncope and collapse (3) Community acquired pneumonia Status: Acute Qualifiers: Laterality: left Lung location: lower lobe of lung Qualified Code(s): J18.9 - Pneumonia, unspecified organism Category: Medical Code(s): J18.9 - Pneumonia, unspecified organism (4) A-fib Status: Acute Category: Medical Code(s): I48.91 - Unspecified atrial fibrillation (5) CHF (congestive heart failure) Status: Acute Category: Medical Code(s): I50.9 - Heart failure, unspecified (6) Anxiety Status: Acute Category: Medical Code(s): F41.9 - Anxiety disorder, unspecified (7) DM2 (diabetes mellitus, type 2) Status: Acute Category: Medical Code(s): E11.9 - Type 2 diabetes mellitus without complications (8) HTN (hypertension) Status: Acute Category: Medical Code(s): I10 - Essential (primary) hypertension (9) Candidal vulvovaginitis Status: Acute Category: Medical Code(s): B37.3 - Candidiasis of vulva and vagina - Assessment and plan all Dx Assessment and Plan for all problems:: See note, Dr. Pearson. CXR in AM. Clotrimazole cream.
--- NOTE | 2020-06-15 10:41 | HMH.PULMCON ---
*Admission Date: 06/12/20 *Reason for consult:: COVID-19 pneumonia *History of present illness: Ms. Adame is a 84-year-old female never smoker no prior respiratory complaints presented to the ER with worsening abdominal pain along with worsening shortness of breath. Patient recently presented to the clinic on 10 June during which she was tested positive for COVID-19 and was discharged home on levofloxacin. Patient symptoms are not improving and she presented to the ED at which she was admitted to the ICU and pulmonary was consulted for further management. [facility] History Medical History: Reports:: Atrial Fibrillation, Congestive Heart Failure, Chronic Obstructive Pulmonary Disease (COPD), Diabetes Mellitus Type 2, Hyperlipidemia, Hypertension, Internal Pacemaker Denies:: Cancer, Diabetes Mellitus Type 1, MRSA *Have you ever received a pneumonia vaccine?: Yes *Have you received a flu vaccine this season?: No Other Medical History: Reports: Hypothyroidism Other Surgeries: Yes: Appendectomy, Cholecystectomy, Colonoscopy, Pacemaker Amputation: No Fractures: No - *Social History Last grade of school completed: Advanced degree Smoking Status: Never smoker Alcohol Intake: never Substance Use Type: denies use *Occupational Status:: retired Housing: house Household Members: other *Travel in the last 8 weeks: None Family Hx:: No significant family history ROS - Cons Reports body ache(s), Reports chills, Reports lack of energy - Card Reports shortness of breath, Reports shortness of breath with activity, Denies leg swelling - Resp Respiratory: Yes chest congestion, Yes cough, No non-productive cough, Yes dyspnea, Yes dyspnea on exertion, No excessive phlegm production, No coughing up blood, No pain on inspiration, No pain with cough, No cough with sputum production, No pain with breathing - GI Gastrointestingal: Reports: change in bowel habits, diarrhea, dyspepsia - [place] Musculoskeletal: Denies neck pain, Denies small joint pain in the hands - Psych Denies confusion, Denies depression Meds Home Medications Medication Instructions Recorded Confirmed Type alprazolam 0.5 mg tablet 0.5 mg PO DAILY 06/24/19 06/12/20 History apixaban 5 mg tablet 5 mg PO BID 06/24/19 06/12/20 History furosemide 20 mg tablet 20 mg PO BID 06/24/19 06/13/20 History levothyroxine 88 mcg tablet 88 mcg PO DAILY 06/24/19 06/12/20 History lisinopril 20 mg tablet 20 mg PO DAILY 06/24/19 06/12/20 History Amlodipine Besylate 5 mg PO DAILY 06/12/20 06/12/20 History Bisoprolol Fumarate [Bisoprolol 5 mg PO DAILY 06/13/20 06/13/20 History 5mg Tablet] Potassium Chloride 10 meq PO DAILY 06/13/20 06/13/20 History Allergies Allergy/AdvReac Type Severity Reaction Status Date / Time bee venom protein (honey bee) Allergy Unknown Unknown Verified 06/12/20 10:49 allergy reaction meperidine Allergy Unknown Unknown Verified 06/12/20 10:49 allergy reaction methylprednisolone Allergy Unknown Hives Verified 06/12/20 10:49 Penicillins Allergy Unknown Unknown Verified 06/12/20 10:49 allergy reaction Exam - Constitutional Constitutional:: no acute distress, comfortable, healthy appearing, cooperative - HENMT Exam HENMT: normocephalic, atraumatic, head normal to inspection, face & sinuses non-tender, oral mucosa normal, moist mucous membranes, posterior oropharanx norm - Eye Exam Eyes:: normal appearance both eyes and related structures, eyelids normal, normal conjunctiva, normal sclera - Respiratory Exam Respiratory:: normal respiratory effort, respiratory distress, crackles - Cardiovascular Exam Cardiac:: S1, S2 - GI Exam GI:: no hepatosplenomegaly - Skin Exam Skin: no rash, normal elastacity, no lesions, normal turgor - Neurological Exam Neurological: alert, awake, oriented X3 - Extremities Exam Extremities: no cyanosis, no clubbing, no edema - Psychiatric Exam Psychiatric: normal affect, appearance meg
--- NOTE | 2020-06-15 15:54 | PC.NURSE ---
Pt is alert and oriented and able to make needs known. RR even and unlabored. CB in reach. Pts blood sugar was 450, called Dr. Way office and spoke with Karissa, she stated Dr. de dios put in new order. VSS. Remains safe. Continues to tolerate RA well. Lungs cta- diminished in bases.
[2020-06-15 18:28] LABS: POC Glucose,Bedside 450 (70-110)
[2020-06-15 18:28] LABS: POC Glucose,Bedside 371 (70-110)
[2020-06-15 18:28] LABS: POC Glucose,Bedside 229 (70-110)
[2020-06-15 18:28] LABS: POC Glucose,Bedside 330 (70-110)
[2020-06-15 20:43] LABS: POC Glucose,Bedside 338 (70-110)
[2020-06-16] VITALS: BP 174/79; PULSE 76; RESP 16; TEMP 36; O2SAT 96
[2020-06-16 04:00] VITALS: BP 167/82; PULSE 70; RESP 17; TEMP 36.7; O2SAT 96
--- NOTE | 2020-06-16 04:53 | PC.NURSE ---
shift summary, no acute changes since prior assessment, pt has rested well t/o shift, remains on room air with O2 sats at 96%, pt has not had any complaints of SOA, chest pain, N/V or diarrhea, pt systolic BP has been elevated this shift from 157-174, lungs diminshed bilaterally t/o, pt is ambulating to the bathroom with standby assist, clear yellow urine noted
[2020-06-16 05:00] VITALS: BMI 30.5
[2020-06-16 05:24] LABS: POC Glucose,Bedside 258 (70-110)
--- NOTE | 2020-06-16 07:30 | XR_ITS ---
PROCEDURE: XR CHEST PORTABLE CLINICAL HISTORY: pneumonia COMPARISON: No exams were available for comparison FINDINGS: Normal heart size. Biventricular and right atrial pacemaker present from left subclavian approach. Lungs are clear. Previously noted perihilar infiltrate noted on the recent CT scan of 06/11/2020 has improved. No acute bony abnormalities. IMPRESSION: No acute findings. Dictated by: Sánchez Goldberg MD 06/16/2020 09:20 Sánchez Goldberg MD in [place] 06/16/2020 09:20
[2020-06-16 07:56] LABS: Alanine Aminotransferase 49 U/L (12-78); Albumin Level 3.3 g/dl (3.5-5.0); Alkaline Phosphatase 110 U/L (38-126); Aspartate Amino Transferase 58 U/L (14-36); Bilirubin,Direct 0.1 mg/dl (0.0-0.4); Bilirubin,Indirect 0.2 mg/dL (0.0-0.9); Bilirubin,Total 0.3 mg/dl (0.2-1.3); Bilirubin,Unconjugated 0.2 mg/dL (0.0-1.1); Total Protein,Serum 6.2 g/dl (6.3-8.2)
[2020-06-16 08:00] VITALS: BP 158/75; PULSE 71; RESP 18; TEMP 36.8; O2SAT 97
--- NOTE | 2020-06-16 09:34 | P.PN_ITS ---
Internal Medicine - PN: Subj *Date: 06/16/20 *Time: 09:38 Interval history: No acute respiratory events overnight. Exam Radiology reports for Last 24 Hours: Chest x-ray from this morning showed no acute pulmonary infiltrates. Relatively stable from prior x-ray on admission - Constitutional Constitutional:: no acute distress - HENMT Exam HENMT: normocephalic, atraumatic - Eye Exam Eyes:: normal appearance both eyes and related structures, eyelids normal, normal conjunctiva, normal sclera - Neck Exam Neck:: normal visual inspection, thyroid normal, no lymphadenopathy - Respiratory Exam Respiratory:: able to speak in complete sentences, normal respiratory effort - Cardiovascular Exam Cardiac:: regular rhythm, S1, S2 - GI Exam GI:: soft, no hepatosplenomegaly, no tenderness - Skin Exam Skin: no rash, normal elastacity, no lesions, normal turgor - Neurological Exam Neurological: alert, awake, oriented X3 - Extremities Exam Extremities: no cyanosis, no clubbing, no edema - Psychiatric Exam Psychiatric: normal affect, appearance grossly normal, affect normal, attitude normal, no homicidal ideation, no suicidal ideation Assessment and Plan (1) COVID-19 Status: Acute Category: Medical Code(s): U07.1 - COVID-19 (2) Near syncope Status: Acute Category: Medical Code(s): R55 - Syncope and collapse (3) Community acquired pneumonia Status: Acute Qualifiers: Laterality: left Lung location: lower lobe of lung Qualified Code(s): J18.9 - Pneumonia, unspecified organism Category: Medical Code(s): J18.9 - Pneumonia, unspecified organism (4) A-fib Status: Acute Category: Medical Code(s): I48.91 - Unspecified atrial fibrillation (5) CHF (congestive heart failure) Status: Acute Category: Medical Code(s): I50.9 - Heart failure, unspecified (6) Anxiety Status: Acute Category: Medical Code(s): F41.9 - Anxiety disorder, unspecified (7) DM2 (diabetes mellitus, type 2) Status: Acute Category: Medical Code(s): E11.9 - Type 2 diabetes mellitus without complications (8) HTN (hypertension) Status: Acute Category: Medical Code(s): I10 - Essential (primary) hypertension (9) Candidal vulvovaginitis Status: Acute Category: Medical Code(s): B37.3 - Candidiasis of vulva and vagina - Assessment and plan all Dx Assessment and Plan for all problems:: #COVID-19 pneumonia: #Community-acquired pneumonia: 84-year-old no prior respiratory complaints tested positive for COVID-19 on 10 June on levofloxacin since then presented to the ED with worsening abdominal symptoms. Patient denied any respiratory symptoms on admission, on room air. Chest x-ray admission and repeat chest x-ray from today were stable with no acu te pulmonary infiltrates. Patient afebrile, on room air since admission saturating 97% and above Mild crackles noted on the right lower lung bases. Sputum cultures less than 10 epithelial cells showed rare gram-negative rods however WBC less than 10. Given given clinical stability and no infiltrates on the chest x-ray we will continue current antibiotic regimen and monitor clinically Plan: -Continue dexamethasone and remdesivir for COVID-19 pneumonia. -Continue ceftriaxone and azithromycin for CAP for a total of 5 days. -Incentive spirometry -PT / OT #Thank you for involving pulmonary in this patient care. We will continue to follow.
[2020-06-16 11:32] LABS: POC Glucose,Bedside 379 (70-110)
[2020-06-16 12:00] VITALS: BP 148/76; PULSE 70; RESP 16; TEMP 36.9; O2SAT 96
--- NOTE | 2020-06-16 12:53 | HMH.ACPN2 ---
Internal Medicine - PN: Subj *Date: 06/16/20 *Time: 12:53 Interval history: Today she seems to feel weaker and still with some shortness of breath. Has had some nocturia. Exam Vital signs and Labs for Last 24 Hours: Temp Pulse Resp BP Pulse Ox 98.4 F 70 16 148/76 H 96 06/16/20 12:00 06/16/20 12:00 06/16/20 12:00 06/16/20 12:00 06/16/20 12:00 Laboratory Results - last 24 hr 06/14/20 20:04: POC Glucose 330 H* 06/15/20 05:12: POC Glucose 229 H 06/15/20 10:18: POC Glucose 371 H* 06/15/20 15:25: POC Glucose 450 H* 06/15/20 20:14: POC Glucose 338 H* 06/16/20 05:15: POC Glucose 258 H 06/16/20 05:20: Total Bilirubin 0.3, Direct Bilirubin 0.1, Conjugated Bilirubin 0.0, Indirect Bilirubin 0.2, Unconjugated Bilirubin 0.2, AST 58 H, ALT 49, Alkaline Phosphatase 110, Total Protein 6.2 L, Albumin 3.3 L 06/16/20 11:23: POC Glucose 379 H* I & O for Last 24 hours: Intake & Output 06/14/20 06/15/20 06/16/20 06/17/20 11:59 11:59 11:59 11:59 Intake Total 1442 / 1442 2222 / 2222 1140 / 1140 Output Total 1450 / 1450 2600 / 2600 2150 / 2150 Balance -8 / -8 -378 / -378 -1010 / -1010 Weight 179 lb 5 oz 179 lb 1 oz Microbiology Reports for the Last 24 Hours: Microbiology 06/15/20 12:30 Sputum - Expectorated Sputum Gram Stain - Final 06/15/20 12:30 Sputum - Expectorated Sputum Sputum Culture - Preliminary - Constitutional no acute distress - *Routine HEENT Exam Head: Present: normocephalic, other (face a little puffy) Eye: Present: PERRL ENT: Present: mucous membranes moist - *Routine Respiratory Exam Present: rales (left basilar rales). Absent: respiratory distress - *Routine Cardiovascular Exam Present: RRR - *Routine Extremities Exam Present: edema (1 to 2+) - *Routine Neurological Exam Present: alert, oriented X3 Assessment and Plan (1) COVID-19 Status: Acute Category: Medical Code(s): U07.1 - COVID-19 (2) Near syncope Status: Acute Category: Medical Code(s): R55 - Syncope and collapse (3) Community acquired pneumonia Status: Acute Qualifiers: Laterality: left Lung location: lower lobe of lung Qualified Code(s): J18.9 - Pneumonia, unspecified organism Category: Medical Code(s): J18.9 - Pneumonia, unspecified organism (4) A-fib Status: Acute Category: Medical Code(s): I48.91 - Unspecified atrial fibrillation (5) CHF (congestive heart failure) Status: Acute Category: Medical Code(s): I50.9 - Heart failure, unspecified (6) Anxiety Status: Acute Category: Medical Code(s): F41.9 - Anxiety disorder, unspecified (7) DM2 (diabetes mellitus, type 2) Status: Acute Category: Medical Code(s): E11.9 - Type 2 diabetes mellitus without complications (8) HTN (hypertension) Status: Acute Category: Medical Code(s): I10 - Essential (primary) hypertension (9) Candidal vulvovaginitis Status: Acute Category: Medical Code(s): B37.3 - Candidiasis of vulva and vagina - Assessment and plan all Dx Assessment and Plan for all problems:: See CXR report from this AM, and Dr. Pearson's note. Saline lock IV and I will give 20mg Lasix x1.
--- NOTE | 2020-06-16 15:25 | PC.NURSE ---
No acute changes noted this shift, pt reports that she is weak and has complained of nausea x1 this shift, pt has been ambulatory in her room independently this shift, ambulates to BR without difficulty, denies any SOA, lung sounds diminished t/o, remains on RA, PO intake has been poor this shift, she has refused most solids, has tolerated liquids, has had one formed BM this shift, no s/s of distress noted, vss, will continue to monitor for changes.
[2020-06-16 16:00] VITALS: BP 148/90; PULSE 73; RESP 16; TEMP 36.6; O2SAT 96
[2020-06-16 16:34] LABS: POC Glucose,Bedside 330 (70-110)
[2020-06-16 20:00] VITALS: BP 174/81; PULSE 68; RESP 16; TEMP 36.7; O2SAT 96
[2020-06-17] VITALS (7 sets, daily range): BP systolic 131–176; BP diastolic 77–95; PULSE 70–72; RESP 16–20; TEMP 35.9–37.1; O2SAT 95–98; BMI 30.1
--- NOTE | 2020-06-17 02:47 | PC.NURSE ---
sats sustaining 90-92% on 1 l nc.
--- NOTE | 2020-06-17 06:16 | PC.NURSE ---
shift summary, pt has rested well t/o shift, lung sounds clear, O2 sats remain 95-96% on room air, systolic BPs have been 157-174 this shift, pt has had no complaints of SOA, chest pain, N/V/D, pt has ambulated independently to bathroom
[2020-06-17 06:27] LABS: Alanine Aminotransferase 49 U/L (12-78); Albumin Level 3.6 g/dl (3.5-5.0); Alkaline Phosphatase 83 U/L (38-126); Aspartate Amino Transferase 47 U/L (14-36); Bilirubin,Indirect 0.4 mg/dL (0.0-0.9); Bilirubin,Total 0.4 mg/dl (0.2-1.3); Bilirubin,Unconjugated 0.4 mg/dL (0.0-1.1); Total Protein,Serum 6.6 g/dl (6.3-8.2)
--- NOTE | 2020-06-17 09:13 | HMH.ACPN2 ---
Internal Medicine - PN: Subj *Date: 06/17/20 *Time: 08:50 Interval history: Pt is resting quietly in bed, arouses easily to verbal greeting. She is smiling and notes that she feels much better this morning. She attributes her improvement to getting up and straightening up her room yesterday. She continues with loose stools and some associated lower abdominal cramping. She denies any SOB on exertion or when up to the bathroom and has no obvious dyspnea while moving around and changing positions for exam this morning which she reports is also an improvement from yesterday. Exam Vital signs and Labs for Last 24 Hours: Temp Pulse Resp BP Pulse Ox 98.7 F 70 18 143/79 H 95 06/17/20 08:00 06/17/20 08:00 06/17/20 08:00 06/17/20 08:00 06/17/20 08:00 Laboratory Results - last 24 hr 06/16/20 11:23: POC Glucose 379 H* 06/16/20 16:22: POC Glucose 330 H* 06/17/20 05:50: Total Bilirubin 0.4, Direct Bilirubin 0.0, Conjugated Bilirubin 0.0, Indirect Bilirubin 0.4, Unconjugated Bilirubin 0.4, AST 47 H, ALT 49, Alkaline Phosphatase 83, Total Protein 6.6, Albumin 3.6 I & O for Last 24 hours: Intake & Output 06/14/20 06/15/20 06/16/20 06/17/20 11:59 11:59 11:59 11:59 Intake Total 1442 / 1442 2222 / 2222 1140 / 1140 1520 / 1520 Output Total 1450 / 1450 2600 / 2600 2150 / 2150 3400 / 3400 Balance -8 / -8 -378 / -378 -1010 / -1010 -1880 / -1880 Weight 179 lb 5 oz 179 lb 1 oz 176 lb 9 oz Microbiology Reports for the Last 24 Hours: Microbiology 06/15/20 12:30 Sputum - Expectorated Sputum Gram Stain - Final 06/15/20 12:30 Sputum - Expectorated Sputum Sputum Culture - Preliminary - Constitutional no acute distress - *Routine HEENT Exam Head: Present: normocephalic ENT: Present: mucous membranes moist - *Routine Respiratory Exam Comments: good air movement with few bibasilar rales - *Routine Cardiovascular Exam Present: RRR - *Routine Abdominal Exam Present: soft, normoactive bowel sounds, distended, guarding, firm, rigid. Absent: tenderness - *Routine Extremities Exam Present: full ROM, pulses intact. Absent: edema, calf tenderness - *Routine Neurological Exam Present: alert, oriented X3, moving all extremities, normal speech Assessment and Plan (1) COVID-19 Status: Acute Category: Medical Code(s): U07.1 - COVID-19 (2) Near syncope Status: Acute Category: Medical Code(s): R55 - Syncope and collapse (3) Community acquired pneumonia Status: Acute Qualifiers: Laterality: left Lung location: lower lobe of lung Qualified Code(s): J18.9 - Pneumonia, unspecified organism Category: Medical Code(s): J18.9 - Pneumonia, unspecified organism (4) A-fib Status: Acute Category: Medical Code(s): I48.91 - Unspecified atrial fibrillation (5) CHF (congestive heart failure) Status: Acute Category: Medical Code(s): I50.9 - Heart failure, unspecified (6) Anxiety Status: Acute Category: Medical Code(s): F41.9 - Anxiety disorder, unspecified (7) DM2 (diabetes mellitus, type 2) Status: Acute Category: Medical Code(s): E11.9 - Type 2 diabetes mellitus without complications (8) HTN (hypertension) Status: Acute Category: Medical Code(s): I10 - Essential (primary) hypertension (9) Candidal vulvovaginitis Status: Acute Category: Medical Code(s): B37.3 - Candidiasis of vulva and vagina - Assessment and plan all Dx Assessment and Plan for all problems:: Improved today. Continue current care. Further per Dr. Kuo.
[2020-06-17 11:38] LABS: POC Glucose,Bedside 426 (70-110)
[2020-06-17 11:38] LABS: POC Glucose,Bedside 226 (70-110)
[2020-06-17 11:58] LABS: POC Glucose,Bedside 357 (70-110)
--- NOTE | 2020-06-17 15:12 | HMH.PULMPN ---
Internal Medicine - PN: Subj *Date: 06/17/20 *Time: 15:12 Interval history: No acute respiratory events overnight. Patient remained on room air with no respiratory distress, saturating 98% and above. Exam - Constitutional Constitutional:: no acute distress, comfortable, healthy appearing, cooperative - HENMT Exam HENMT: normocephalic, atraumatic, head normal to inspection, face & sinuses non-tender, oral mucosa normal, moist mucous membranes, posterior oropharanx norm - Eye Exam Eyes:: normal appearance both eyes and related structures, eyelids normal, normal conjunctiva, normal sclera - Neck Exam Neck:: normal visual inspection, thyroid normal, no lymphadenopathy - Respiratory Exam Respiratory:: able to speak in complete sentences, normal respiratory effort - Cardiovascular Exam Cardiac:: regular rhythm, S1, S2 - GI Exam GI:: soft, no hepatosplenomegaly - Skin Exam Skin: no rash, normal elastacity, no lesions, normal turgor - Neurological Exam Neurological: alert, awake, oriented X3 - Extremities Exam Extremities: no cyanosis, no clubbing, no edema - Psychiatric Exam Psychiatric: normal affect, appearance grossly normal, affect normal, attitude normal, no homicidal ideation, no suicidal ideation Assessment and Plan (1) COVID-19 Status: Acute Category: Medical Code(s): U07.1 - COVID-19 (2) Near syncope Status: Acute Category: Medical Code(s): R55 - Syncope and collapse (3) Community acquired pneumonia Status: Acute Qualifiers: Laterality: left Lung location: lower lobe of lung Qualified Code(s): J18.9 - Pneumonia, unspecified organism Category: Medical Code(s): J18.9 - Pneumonia, unspecified organism (4) A-fib Status: Acute Category: Medical Code(s): I48.91 - Unspecified atrial fibrillation (5) CHF (congestive heart failure) Status: Acute Category: Medical Code(s): I50.9 - Heart failure, unspecified (6) Anxiety Status: Acute Category: Medical Code(s): F41.9 - Anxiety disorder, unspecified (7) DM2 (diabetes mellitus, type 2) Status: Acute Category: Medical Code(s): E11.9 - Type 2 diabetes mellitus without complications (8) HTN (hypertension) Status: Acute Category: Medical Code(s): I10 - Essential (primary) hypertension (9) Candidal vulvovaginitis Status: Acute Category: Medical Code(s): B37.3 - Candidiasis of vulva and vagina - Assessment and plan all Dx Assessment and Plan for all problems:: #COVID-19 pneumonia: #Community-acquired pneumonia: 84-year-old no prior respiratory complaints tested positive for COVID-19 on 10 June on levofloxacin since then presented to the ED with worsening abdominal symptoms. Patient denied any respiratory symptoms on admission, on room air. Chest x-ray admission and repeat chest x-ray from today were stable with no acute pulmonary infiltrates. Patient afebrile, on room air since admission saturating 97% and above Mild crackles noted on the right lower lung bases. Sputum cultures less than 10 epithelial cells showed rare gram-negative rods. Given given clinical stability and no infiltrates on the chest x-ray we will continue current antibiotic regimen for CAP and monitor clinically Plan: -Stop dexamethasone for COVID-19 pneumonia. -Continue ceftriaxone and azithromycin for CAP for a total of 5 days (can be switched to levofloxacin to complete a 5-day course on discharge). -Incentive spirometry -PT / OT -We will follow in this patient in the clinic 4 weeks after discharge with full PFTs and 6-minute walk testing #Thank you for involving pulmonary in this patient care.
--- NOTE | 2020-06-17 15:27 | PC.NURSE ---
A&OX4. PT HAS TOLERATED ROOM AIR WELL THROUGHOUT SHIFT. RESPIRATIONS REGULAR AND UNLABORED. DIMINISHED LUNG SOUNDS NOTED THROUGHOUT. OCCASIONAL NONPRODUCTIVE COUGH NOTED. HAND AUTO CLEANER EQUAL. +2 PULSES NOTED THROUGHOUT. NO EDEMA NOTED. ACTIVE BOWEL SOUNDS HEARD IN ALL 4 QUADRANTS. SOFT AND NONTENDER ABDOMEN. NO BM THUS FAR. PT VOIDS INDEPENDENTLY PER BATHROOM. STEADY GAIT NOTED. CLEAR YELLOW URINE NOTED. PT HAS RECEIVED 2 ANTIBIOTICS AND REMDESIVIR THIS SHIFT AND TOLERATED WELL. 20G NOTED TO LAC. NO REPORTS OF PAIN OR NAUSEA THUS FAR. NO REPORTS OF SOB. PT IS CURRENTLY LYING IN BED SLEEPING. BED IN LOWEST POSITION. CALL LIGHT WITHIN REACH. VSS. WILL CONTINUE TO MONITOR.
[2020-06-17 16:32] LABS: POC Glucose,Bedside 278 (70-110)
[2020-06-17 16:32] LABS: Basophils % 0.4 % (0.1-2.0); Hematocrit 46.7 % (37.0-47.0); Hemoglobin 14.9 g/dL (12.2-16.2); Lymphocytes # 1.4 K/mm3 (0.7-4.5); Lymphocytes % 17.3 % (10-50); Mean Corpuscular HGB Conc 31.8 g/dL (31.8-35.4); Mean Corpuscular Hemoglobin 29.7 pg (27.0-31.2); Mean Corpuscular Volume 93.5 fl (81-99); Mean Platelet Volume 9.6 fl (7.4-10.4); Monocytes # 0.4 K/mm3 (0.1-1.0); Neutrophils # 6.4 K/mm3 (1.8-7.8); Neutrophils % 77.2 % (37.0-80.0); Platelet Count 180 K/mm3 (142-424); Red Cell Distribution Width 13.4 % (11.5-17.5); White Blood Count 8.3 K/mm3 (4.8-10.8)
[2020-06-17 16:35] LABS: Chloride 97 mmol/L (98-107); Sodium 134 mmol/L (136-145)
[2020-06-17 16:36] LABS: Potassium 4.1 mmoL/L (3.5-5.1)
[2020-06-17 16:38] LABS: Blood Urea Nitrogen 36 mg/dl (7-17); Creatinine Clearance Estimated 54 mL/min (50-200); Estimated Glomerular Filt Rate 53 ml/min (>60); GFR (African American) 64 ML/MIN (>60)
[2020-06-17 16:39] LABS: Anion Gap 13.1 mEq/L (5-15); Calcium 8.7 mg/dl (8.4-10.2); Carbon Dioxide 28 mmol/L (22.0-30.0); Glucose 290 mg/dl (74-100)
--- NOTE | 2020-06-18 00:03 | PC.NURSE ---
She is A&Ox4. She received PRN medication for anxiety. She reports SOA with exertion. Non-productive cough present with deep breathing for assessment. Voiding per BR. Urine is yellow, clear. She reports dizziness with initially standing and weakness. She continues on RA. Voices concerns over glucose and BP. Denies pain. Refused bedtime snack; stating she had a glucerna. [place] glucerna available at bedside. She prefers BP to be taken in lower arm.
[2020-06-18 00:15] LABS: POC Glucose,Bedside 282 (70-110)
--- NOTE | 2020-06-18 02:31 | PC.NURSE ---
She has voiced concerns over amlodipine being ordered. States she takes 5mg PO at bedtime.
[2020-06-18 02:32] VITALS: BP 168/92; PULSE 70; RESP 17; TEMP 35.8; O2SAT 94
[2020-06-18 04:14] VITALS: BMI 29.2
[2020-06-18 05:45] LABS: POC Glucose,Bedside 230 (70-110)
[2020-06-18 08:00] VITALS: BP 164/89; PULSE 78; RESP 18; TEMP 36.9; O2SAT 94
[2020-06-18 09:38] LABS: Adenovirus,PCR Not Detected (NotDetected); Bordetella Pertussis Not Detected (NotDetected); Chlamydophila Pneumoniae, PCR Not Detected (NotDetected); Coronavirus 229E Not Detected (NotDetected); Coronavirus NL63 Not Detected (NotDetected); Coronavirus OC43 Not Detected (NotDetected); Coronovirus HKU1,PCR Not Detected (NotDetected); Human Metapneumovirus Not Detected (NotDetected); Influenza A, PCR Not Detected (NotDetected); Influenza AH1, 2009 Not Detected (NotDetected); Influenza AH1, PCR Not Detected (NotDetected); Influenza AH3,PCR Not Detected (NotDetected); Influenza B, PCR Not Detected (NotDetected); Mycoplasma Pneumoniae, PCR Not Detected (NotDetected); Parainfluenza 1, PCR Not Detected (NotDetected); Parainfluenza 2, PCR Not Detected (NotDetected); Parainfluenza 3, PCR Not Detected (NotDetected); Parainfluenza 4, PCR Not Detected (NotDetected); Respiratory Syncytial Virus Not Detected (NotDetected); Rhinovirus/Enterovirus Not Detected (NotDetected)
--- NOTE | 2020-06-18 10:10 | HMH.PULMPN ---
Internal Medicine - PN: Subj *Date: 06/18/20 *Time: 10:14 Interval history: Acute respiratory events overnight. Patient remained stable on room air. GI symptoms improving. Exam - Constitutional Constitutional:: no acute distress, comfortable, healthy appearing, cooperative - HENMT Exam HENMT: normocephalic, atraumatic, head normal to inspection, face & sinuses non-tender - Eye Exam Eyes:: normal appearance both eyes and related structures, eyelids normal, normal conjunctiva, normal sclera - Neck Exam Neck:: normal visual inspection, thyroid normal, no lymphadenopathy - Respiratory Exam Respiratory:: able to speak in complete sentences, normal breath sounds, normal respiratory effort - Cardiovascular Exam Cardiac:: regular rhythm, S1, S2 - GI Exam GI:: soft, no hepatosplenomegaly, normal to inspection - Skin Exam Skin: no rash, normal elastacity, no lesions, normal turgor - Neurological Exam Neurological: alert, awake, oriented X3 - Extremities Exam Extremities: no cyanosis, no clubbing, no edema - Psychiatric Exam Psychiatric: normal affect, appearance grossly normal, affect normal, attitude normal, no homicidal ideation, no suicidal ideation Assessment and Plan (1) COVID-19 Status: Acute Category: Medical Code(s): U07.1 - COVID-19 (2) Near syncope Status: Acute Category: Medical Code(s): R55 - Syncope and collapse (3) Community acquired pneumonia Status: Acute Qualifiers: Laterality: left Lung location: lower lobe of lung Qualified Code(s): J18.9 - Pneumonia, unspecified organism Category: Medical Code(s): J18.9 - Pneumonia, unspecified organism (4) A-fib Status: Acute Category: Medical Code(s): I48.91 - Unspecified atrial fibrillation (5) CHF (congestive heart failure) Status: Acute Category: Medical Code(s): I50.9 - Heart failure, unspecified (6) Anxiety Status: Acute Category: Medical Code(s): F41.9 - Anxiety disorder, unspecified (7) DM2 (diabetes mellitus, type 2) Status: Acute Category: Medical Code(s): E11.9 - Type 2 diabetes mellitus without complications (8) HTN (hypertension) Status: Acute Category: Medical Code(s): I10 - Essential (primary) hypertension (9) Candidal vulvovaginitis Status: Acute Category: Medical Code(s): B37.3 - Candidiasis of vulva and vagina - Assessment and plan all Dx Assessment and Plan for all problems:: #COVID-19 pneumonia: #Community-acquired pneumonia: 84-year-old no prior respiratory complaints tested positive for COVID-19 on 10 June on levofloxacin since then presented to the ED with worsening abdominal symptoms. Patient denied any respiratory symptoms on admission, on room air. Chest x-ray admission and repeat chest x-ray from today were stable with no acute pulmonary infiltrates. Patient afebrile, on room air since admission saturating 97% and above Mild crackles noted on the right lower lung bases. Sputum cultures less than 10 epithelial cells showed rare gram-negative rods. Given given clinical stability and no infiltrates on the chest x-ray we will continue current antibiotic regimen for CAP and monitor clinically. Patient respiratory status remained stable. Patient got retested today. Patient was saying that she thinks she is ready to go home, if the test resulted negative she can stay with her daughter and if the test resulted positive she can stay alone and want to get get retested in a week so her daughter can come and stay with her after the test resulted negative Plan: -Continue ceftriaxone and azithromycin for CAP for a total of 5 days (can be switched to levofloxacin to complete a 5-day course on discharge). -Incentive spirometry -PT / OT -We will follow in this patient in the clinic 4 weeks after discharge with full PFTs and 6-minute walk testing #Thank you for involving pulmonary in this patient care.
--- NOTE | 2020-06-18 10:12 | PC.NURSE ---
Pt will need a rolling walker, rather than a cane d/t gait and mobility issues at time of discharge.
--- NOTE | 2020-06-18 10:22 | P.PN_ITS ---
Internal Medicine - PN: Subj *Date: 06/18/20 *Time: :22 Exam Vital signs and Labs for Last 24 Hours: Temp Pulse Resp BP Pulse Ox 98.5 F 78 18 164/89 H 94 L 06/18/20 08:00 06/18/20 08:00 06/18/20 08:00 06/18/20 08:00 06/18/20 08:00 Laboratory Results - last 24 hr 06/16/20 20:19: POC Glucose 426 H* 06/17/20 05:49: POC Glucose 226 H 06/17/20 11:48: POC Glucose 357 H* 06/17/20 16:20: POC Glucose 278 H 06/17/20 16:25: WBC 8.3, RBC 5.00, Hgb 14.9, Hct 46.7, MCV 93.5, MCH 29.7, MCHC 31.8, RDW 13.4, Plt Count 180 D, MPV 9.6, Neut % (Auto) 77.2, Lymph % (Auto) 17.3, [place] % (Auto) 5.0, Eos % (Auto) 0.0 L, Baso % (Auto) 0.4, Neut # (Auto) 6.4, Lymph # (Auto) 1.4, [place] # (Auto) 0.4, Eos # (Auto) 0.0, Baso # (Auto) 0.0 06/17/20 16:25: Sodium 134 L, Potassium 4.1, Chloride 97 L, Carbon Dioxide 28, Anion Gap 13.1, BUN 36 H, Creatinine 1.00, Estimated Creat Clear 54, Estimated GFR 53 L, Est GFR ( Amer) 64, Glucose 290 H, Calcium 8.7 06/17/20 20:59: POC Glucose 282 H 06/18/20 05:38: POC Glucose 230 H I & O for Last 24 hours: Intake & Output 06/15/20 06/16/20 06/17/20 06/18/20 23:59 23:59 23:59 23:59 Intake Total 1922 / 1922 1280 / 1280 675 / 675 250 / 250 Output Total 2750 / 2750 3400 / 3400 2000 / 2300 1050 / 1050 Balance -828 / -828 -2120 / -2120 -1325 / -1625 -800 / -800 Weight 81.335 kg 81.221 kg 80.087 kg 77.7 kg Microbiology Reports for the Last 24 Hours: Microbiology 06/15/20 12:30 Sputum - Expectorated Sputum Gram Stain - Final 06/15/20 12:30 Sputum - Expectorated Sputum Sputum Culture - Preliminary Assessment and Plan (1) COVID-19 Status: Acute Category: Medical Code(s): U07.1 - COVID-19 (2) Near syncope Status: Acute Category: Medical Code(s): R55 - Syncope and collapse (3) Community acquired pneumonia Status: Acute Qualifiers: Laterality: left Lung location: lower lobe of lung Qualified Code(s): J18.9 - Pneumonia, unspecified organism Category: Medical Code(s): J18.9 - Pneumonia, unspecified organism (4) A-fib Status: Acute Category: Medical Code(s): I48.91 - Unspecified atrial fibrillation (5) CHF (congestive heart failure) Status: Acute Category: Medical Code(s): I50.9 - Heart failure, unspecified (6) Anxiety Status: Acute Category: Medical Code(s): F41.9 - Anxiety disorder, unspecified (7) DM2 (diabetes mellitus, type 2) Status: Acute Category: Medical Code(s): E11.9 - Type 2 diabetes mellitus without complications (8) HTN (hypertension) Status: Acute Category: Medical Code(s): I10 - Essential (primary) hypertension (9) Candidal vulvovaginitis Status: Acute Category: Medical Code(s): B37.3 - Candidiasis of vulva and vagina The patient's infection will respond to the chosen ABx?: Yes Is the patient receiving the right drug, dose, and route?: Yes Could a more targeted ABx be ordered?: No (APPROPRIATE ABX FOR CAP) 5 (LAST DOSE 06/19/20)
--- NOTE | 2020-06-18 10:24 | SW/DCPLANNER ---
Addendum entered by Honey Salazar 06/18/20 12:55: Nahomi from [facility] has called and stated that services will begin this weekend for this patient. I will inform patient. Addendum entered by Honey Salazar 06/18/20 11:23: Due to patient still being positive at this time [facility] is unable to meet patients needs. Noble with [facility] has stated that he can accept COVID positive patients. Patient is fine with this plan. Patient information and order will be faxed to [facility]. Addendum entered by Honey Salazar 06/18/20 10:34: Elin from [facility] has stated that a rolling walker will be delivered to [facility] to this patient. Original Note: I have spoke with this patient regarding discharge plans. Patient stated that she resides at home alone and has family that checks on her often. I explained the options of placement vs home health. Patient stated that since she lives so close to [facility] and has family involved she would prefer to discharge home with home health services. Patient has stated that she prefer to use [facility] (only will accept for services if her COVID results are NEGATIVE today) but would also be willing to use [facility] if necessary. I will continue to follow up with patients COVID results today then set up home health services. Patient has also requested a walker and [facility] I will follow up with [facility] regarding walker. Patient will discharge home later today.
[2020-06-18 11:05] LABS: POC Glucose,Bedside 247 (70-110)
[2020-06-18 11:06] LABS: Coronavirus 19, PCR Detected (NotDetected)
[2020-06-18 12:00] VITALS: BP 138/79; PULSE 76; RESP 18; O2SAT 96
--- NOTE | 2020-06-18 14:30 | PC.NURSE ---
1430 - Pt aware of order for discharge. Teaching discussed w/ pt w/ verbalization of understanding. Pt states that she will have her [facility] to come pick her up. Pt's rolling walker has been dropped off from [facility]. Pt to call out to staff when ride is here.
--- NOTE | 2020-06-19 05:24 | HMH.DCSUM ---
General - General Admission date:: 06/12/20 Discharge date: 06/18/20 HPI HPI: 84 [address] old patient of Dr. Kuo'harshal who called the office of [facility] on , 06/10/20, with a few day history of fever and URI symptoms. Covid 19 swab was ordered and resulted positive the next day and patient was notified. At that time, she stated she had felt short of breath and she thought Covid 19 was a sentence for her. She was directed to come to the ER for an evaluation. She had an extensive work up in the ER on the afternoon of 06/11/20. She was not hypoxic but a CT scan of the chest showed a focal area of pneumonia. Patient was treated with Levaquin and discharged home. The next day, 06/12/20 she was cooking an egg at her stove and felt faint. At that point, she called 911 for transport to [facility] She stated she had been having more intestinal issues over the past 24 hours, consisting of Nausea and diarrhea. Hospital Course Hospital Course: On admission patient with placed in the Covid unit. She was started on IV Levaquin, dexamethasone, and home medicines. She was also started on Pepcid, sliding scale insulin, vitamin D and Zinc. She did experience diarrhea and did receive remdesivir. She did complain with some yeast vaginitis and Chlortrimazole cream was initiated. She reported a nonproductive cough with some dyspnea. She was seen by pulmonology who felt CXR was concerning for right lower lobe increased haziness and could not rule out an infiltrate. Crackles were noted in the right lower lung base as well. Levofloxacin was changed to ceftriaxone and Zithromax. On 06/15 repeat chest x-ray showed no infiltrate and ceftriaxone and Zithromax for CAP was to be continued for total of 5 days. Sputum cultures did show rare gram-negative rods with a WBC less than 10. Patient was given 20 of Lasix IV. After the Lasix she felt better, was not short of breath. and was more comfortable overall. Bibasilar crackles cleared. She did have some GI distress possibly due to the dexamethasone. On 06/17 she had no new events over the night. O2 sats were 98% and above. She was stable for discharge. She was discharged home in stable and satisfactory condition. She was to continue with Levaquin for community-acquired pneumonia for a total of 5days. She was to use incentive spirometer. She was to have PT and OT. She was to follow-up with Dr. Harrington on 07/15/[address] Kuo as well. She would have [facility] home health services. A rolling walker was obtained from [facility] Objective Vital signs: Temp Pulse Resp BP Pulse Ox 98.5 F 76 18 138/79 96 06/18/20 08:00 06/18/20 12:00 06/18/20 12:00 06/18/20 12:00 06/18/20 12:00 Narrative: Exam - Constitutional Constitutional:: no acute distress, comfortable, healthy appearing, cooperative - HENMT Exam HENMT: normocephalic, atraumatic, head normal to inspection, face & sinuses non-tender - Eye Exam Eyes:: normal appearance both eyes and related structures, eyelids normal, normal conjunctiva, normal sclera - Neck Exam Neck:: normal visual inspection, thyroid normal, no lymphadenopathy - Respiratory Exam Respiratory:: able to speak in complete sentences, normal breath sounds, normal respiratory effort - Cardiovascular Exam Cardiac:: regular rhythm, S1, S2 - GI Exam GI:: soft, no hepatosplenomegaly, normal to inspection - Skin Exam Skin: no rash, normal elastacity, no lesions, normal turgor - Neurological Exam Neurological: alert, awake, oriented X3 - Extremities Exam Extremities: no cyanosis, no clubbing, no edema - Psychiatric Exam Psychiatric: normal affect, appearance grossly normal, affect normal, attitude normal, no homicidal ideation, no suicidal ideation Results Completed studies during hospitalization [Text1]: 06/12/2020 CXR IMPRESSION: No acute findings. 06/16/2020 CXR IMPRESSION: No acute findings. 06/12/2020 EKG
== END 2020-06-18 16:15 | disposition home health service (06) | DRG 177 ==
LOC: ER 12:34 → ICU 13:11
PROVIDERS: Family Medicine; Admitting Provider Family Medicine; Emergency Provider Emergency Medicine; PCP Family Medicine; Visit Provider Family Medicine
DX: U07.1 COVID-19 (principal); J12.89 Other viral pneumonia; Z79.01 Long term (current) use of anticoagulants; I48.91 Unspecified atrial fibrillation; Z95.0 Presence of cardiac pacemaker; I11.0 Hypertensive heart disease with heart failure; I50.9 Heart failure, unspecified; E11.9 Type 2 diabetes mellitus without complications; Z79.899 Other long term (current) drug therapy; Z88.0 Allergy status to penicillin; Z88.8 Allergy status to other drugs, medicaments and biological substances
CPT/HCPCS: 71045; 71250; 80048; 80053; 80076; 82550; 82553; 82803; 82962; 83036; 83880; 84484; 85025; 87070; 87077; 87186; 87205; 87275; 87276; 87581; 87633; 87798; 93005; 96365; 96374; 96375; 99283; 99284; J0456; J1956; J2405; U0003; U0004

== ENCOUNTER → 2020-06-24 13:10 | Outpatient (CLI) | payer MEDICARE, SELFPAY ==
[2020-06-25 12:12] LABS: Covid-19 Nasal PCR Sendout Lex Positive
== END ==
PROVIDERS: PCP Family Medicine; Visit Provider Family Medicine
DX: Z20.828 Contact with and (suspected) exposure to other viral communicable diseases (principal); U07.1 COVID-19
CPT/HCPCS: U0004

== ENCOUNTER → 2020-08-23 11:19 | Outpatient (CLI) | payer MEDICARE, SELFPAY ==
[2020-08-23 12:25] VITALS: PULSE 71; PULSE 75
== END ==
PROVIDERS: PCP Family Medicine; Visit Provider Internal Medicine Pulmonary Disease
DX: R06.02 Shortness of breath (principal); J18.9 Pneumonia, unspecified organism; Z86.19 Personal history of other infectious and parasitic diseases
CPT/HCPCS: 94060; 94640; 94726; 94729

== ENCOUNTER → 2022-11-27 17:02 | Outpatient (CLI) | payer MEDICARE, SELFPAY | PROVIDERS: Visit Provider Nurse Practitioner Family | DX: B07.0 Plantar wart (principal); M79.672 Pain in left foot; B95.7 Other staphylococcus as the cause of diseases classified elsewhere | CPT/HCPCS: 87070; 87077; 87186; 87205 ==

== ENCOUNTER → 2022-11-29 13:25 | Outpatient (CLI) | payer MEDICARE, SELFPAY ==
--- NOTE | 2022-11-29 13:30 | XR_ITS ---
FINAL REPORT CLINICAL HISTORY: foot pain, left sub 3rd/4th wound COMPARISON: 01/09/2018 FINDINGS: LEFT FOOT Three views of the left foot demonstrate no acute fracture or dislocation. The joint spaces are preserved. There is a small plantar calcaneal spur. No soft tissue ulceration is identified. No radiopaque foreign body is seen. IMPRESSION: No acute abnormality is identified. Reviewed, Interpreted and Dictated by Ta Coffey MD Transcribed by Nathaly Reyna Authenticated and . [facility]
[2022-11-29 14:24] LABS: Basophils # 0.1 K/mm3 (0-0.2); Basophils % 0.6 % (0.1-2.0); Eosinophils # 0.3 K/mm3 (0.0-0.4); Eosinophils % 2.5 % (0.1-12.0); Hematocrit 41.5 % (37.0-47.0); Hemoglobin 13.6 g/dL (12.2-16.2); Lymphocytes # 4.8 K/mm3 (0.7-4.5); Lymphocytes % 44.9 % (10-50); Mean Corpuscular HGB Conc 32.7 g/dL (31.8-35.4); Mean Corpuscular Hemoglobin 30.7 pg (27.0-31.2); Mean Corpuscular Volume 93.7 fl (81-99); Mean Platelet Volume 9.7 fl (7.4-10.4); Monocytes # 0.5 K/mm3 (0.1-1.0); Monocytes % 5.1 % (1.7-9.3); Neutrophils % 46.8 % (37.0-80.0); Platelet Count 198 K/mm3 (142-424); Red Blood Count 4.42 M/mm3 (4.20-5.40); Red Cell Distribution Width 13.2 % (11.5-17.5); White Blood Count 10.6 K/mm3 (4.8-10.8)
[2022-11-29 15:03] LABS: Erythrocyte Sedimentation Rate 32 mm/hr (0-30)
[2022-11-29 16:38] LABS: Alanine Aminotransferase 31 U/L (12-78); Albumin Level 4.1 g/dl (3.5-5.0); Albumin/Globulin Ratio 1.5 (1.1-1.8); Alkaline Phosphatase 110 U/L (38-126); Anion Gap 11.4 mEq/L (5-15); Aspartate Amino Transferase 43 U/L (14-36); Bilirubin,Total 0.6 mg/dl (0.2-1.3); Blood Urea Nitrogen 23 mg/dl (7-17); Carbon Dioxide 29 mmol/L (22.0-30.0); Chloride 99 mmol/L (98-107); Estimated Glomerular Filt Rate 47 ml/min (>60); GFR (African American) 57 ML/MIN (>60); Globulin 2.7 g/dL (1.3-3.2); Glucose 157 mg/dl (74-100); Potassium 4.4 mmoL/L (3.5-5.1); Sodium 135 mmol/L (136-145); Total Protein,Serum 6.8 g/dl (6.3-8.2)
[2022-11-29 16:48] LABS: C-Reactive Protein 9.6 mg/L (0-4)
== END ==
PROVIDERS: PCP Family Medicine; Visit Provider Nurse Practitioner Family
DX: S91.302A Unspecified open wound, left foot, initial encounter (principal); M79.672 Pain in left foot
CPT/HCPCS: 36415; 73630; 80053; 85025; 85651; 86140

== ENCOUNTER 2023-03-11 22:23 | Inpatient (IN) | payer MEDICARE, SELFPAY ==
--- NOTE | 2023-03-11 22:36 | ECG_ITS ---
APPROVED REPORT Exam: Resting ECG HR:69 bpm ECG Measurements Heart Rate 69 AXES QRSd 176 QRS 266 QT 495 T 113 QTc 515 Conclusion ELECTRONIC VENTRICULAR PACEMAKER ABNORMAL RHYTHM ECG UNCONFIRMED REPORT Electronically signed by : Remy Corcoran MD 03/14/2023 21:28:27
[2023-03-11 22:39] VITALS: BP 232/130; PULSE 74; RESP 16; TEMP 36.8; O2SAT 98; BMI 43.9
--- NOTE | 2023-03-11 22:49 | PC.NURSE ---
FSBS: 313 Manual BP: 232/130
[2023-03-11 22:55] LABS: POC Glucose,Bedside 313 (70-110)
[2023-03-11 23:20] LABS: Chloride 93 mmol/L (98-107)
[2023-03-11 23:23] LABS: Alanine Aminotransferase 32 U/L (12-78); Albumin/Globulin Ratio 1.1 (1.1-1.8); Alkaline Phosphatase 120 U/L (38-126); Aspartate Amino Transferase 46 U/L (14-36); Basophils % 0.1 % (0.1-2.0); Bilirubin,Total 0.5 mg/dl (0.2-1.3); Blood Urea Nitrogen 52 mg/dl (7-17); Calcium 9.2 mg/dl (8.4-10.2); Carbon Dioxide 28 mmol/L (22.0-30.0); Creatinine Clearance Estimated 25 mL/min (50-200); Eosinophils % 0.3 % (0.1-12.0); Estimated Glomerular Filt Rate 36 ml/min (>60); GFR (African American) 43 ML/MIN (>60); Globulin 3.5 g/dL (1.3-3.2); Glucose 308 mg/dl (74-100); Hematocrit 41.1 % (37.0-47.0); Hemoglobin 13.3 g/dL (12.2-16.2); Lymphocytes % 16.9 % (10-50); Mean Corpuscular HGB Conc 32.4 g/dL (31.8-35.4); Mean Corpuscular Hemoglobin 30.1 pg (27.0-31.2); Mean Corpuscular Volume 92.9 fl (81-99); Monocytes # 0.5 K/mm3 (0.1-1.0); Monocytes % 4.1 % (1.7-9.3); Neutrophils # 9.5 K/mm3 (1.8-7.8); Neutrophils % 78.6 % (37.0-80.0); Platelet Count 254 K/mm3 (142-424); Potassium 4.7 mmoL/L (3.5-5.1); Red Blood Count 4.42 M/mm3 (4.20-5.40); Red Cell Distribution Width 12.6 % (11.5-17.5); Total Protein,Serum 7.5 g/dl (6.3-8.2); White Blood Count 12.1 K/mm3 (4.8-10.8)
[2023-03-11 23:25] LABS: Acetone, Serum (Rapid) None Detected (None Detect); Anion Gap 13.7 mEq/L (5-15); Sodium 130 mmol/L (136-145)
--- NOTE | 2023-03-11 23:28 | PC.NURSE ---
Pt ambulatory to nearest bathroom with minimal assistance
[2023-03-11 23:30] VITALS: BP 249/113; PULSE 72; O2SAT 96
[2023-03-11 23:30] LABS: VBG Base Excess 1.5 mmol/L (-2.4-2.3); VBG HCO3 25.8 mmol/L (23-30); VBG Oxygen Saturation 93.6 % (50-70); VBG PCO2 39.8 mmol/L (35-51); VBG PH 7.43 mmol/L (7.31-7.41); VBG PO2 66.1 mmol/L (28-40)
[2023-03-11 23:31] LABS: Microscopic, Urine URINE MICROSCOPIC (MICROSCOPIC)
[2023-03-11 23:34] LABS: Appearance,Urine SL CLOUDY (Clear); Bilirubin,Urine Negative (Negative); Blood, Urine Negative (Negative); Color,Urine YELLOW (Yellow); Glucose,Urine (UA) 2+ (Negative); Ketones,Urine Negative (Negative); Leukocyte Esterase,Urine 2+ (Negative); Nitrate,Urine Negative (Negative); PH,Urine 5.5 (5.0-8.5); Protein,Urine Negative (Negative); Specific Gravity, Urine 1.015 (1.005-1.030); Urobilinogen,Urine 0.2 EU/dl (0.2)
--- NOTE | 2023-03-11 23:35 | HMH.EDGENADL ---
Discharge Plan Disposition Patient Disposition: Admitted Condition: Good Clinical Impressions Clinical Impression: Hypertensive urgency, Moran's palsy, Herpes zoster virus infection of face and ear nerves Hyperglycemia due to type 2 diabetes mellitus Qualifiers: Diabetes mellitus fpc insulin use: without terminal superintendent use Qualified Code(s): E11.65 - Type 2 diabetes mellitus with hyperglycemia Discharge ED Provider: Lexi Marcos General Adult HPI General Chief complaint: Weakness Stated complaint: high bp, shingles, combination of meds Time Seen by Provider: 03/11/23 22:59 Mode of Arrival: Wheelchair Source of Information: Patient and Relative Limitations: No Limitations Description of Symptoms (Recalled from ER Triage Doc. 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 pt states she is having pain in her mouth and gums where the shingles are located. pt also states she is having R sided facial droop from the bells palsy. pt was treated with tramadol, prednisone 20mg 3x daily, and famciclover. pt is a type two diabetic- noninsulin dependent. pts daughters state that her FS was up to 536 yesterday so the daughter administered the daughters novolog 70/30 to the pt. today the pt was given 30 units of this insulin around 1100. FS at this time is 313. the pt has been very hyperglycemic and hypertensive according to her childrenn. History of Present Illness HPI narrative: This patient is an 87-year-old female with a history of bhi-cgeqtgd-udrascuwg type 2 diabetes, atrial fibrillation status post pacemaker placement, CHF, hypertension, and anxiety presented to the emergency department for evaluation with concern for hyperglycemia and hypertension at home. 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 She states that she had burning pain and nerve pain on the right side of her face that started on Sunday, and it worsened on so she went to see her primary care provider. There, she was prescribed tramadol, famciclovir, and prednisone. She has been taking those since, and she has noted significant hyperglycemia at home with blood sugars consistently in the 400-500 range. She is not typically on insulin, but her daughter has been giving her her NovoLog 70/30. She states that she gave her approximately 55 units yesterday and 42 so far today, but she is still been hyperglycemic and has had very dry mouth. She states that she has been very thirsty. She also notes that she feels like she is floating and lightheaded from her high blood pressure, with readings consistently greater than 200 systolic. She has been compliant with all of her home medications. She denies any fevers, chills, chest pain, shortness of breath, abdominal pain, nausea, vomiting, changes in bowel movements, or other concerns. Related Data Home Medications Medication Instructions Recorded Confirmed alprazolam 0.5 mg tablet (Xanax) 0.5 mg PO DAILY Anxiety 06/24/19 12/11/22 apixaban 5 mg tablet (Eliquis) 5 mg PO BID Blood thinner 06/24/19 12/11/22 bisoprolol fumarate 5 mg tablet 5 mg PO DAILY BLOOD PRESSURE 06/13/20 12/11/22 potassium chloride 10 mEq 10 meq PO DAILY Supplement 06/13/20 12/11/22 tablet,extended release hydrochlorothiazide 25 mg tablet 25 mg PO 11/23/22 12/11/22 levothyroxine 100 mcg tablet 100 mcg PO DAILY 12/11/22 12/11/22 Previous Rx's Medication Instructions Recorded famotidine 20 mg tablet 20 mg PO BID #60 tabs 06/18/20 mupirocin 2 % topical ointment 1 applic topical BID left foot 11/27/22 wound/blister site #15 grams tramadol 50 mg tablet 50 mg PO Q6H PRN pain 5 days #20 11/27/22 tabs doxycycline hyclate 100 mg tablet 100 mg PO BID 2 weeks #28 tabs 11/30/22 Allergies Allergy/AdvReac Type Severity Reaction Status Date / Time bee venom protein (honey bee) Allergy Unknown Unknown Veri
[2023-03-11 23:39] LABS: Coronavirus 19, PCR Not Detected (NotDetected); Influenza A, PCR Not Detected (NotDetected); Influenza B, PCR Not Detected (NotDetected)
[2023-03-11 23:44] LABS: Bacteria,Urine 2+ /lpf; RBC,Urine Occasional #/hpf (0-3); WBC,Urine 20-50 #/hpf (0-3)
--- NOTE | 2023-03-11 23:58 | PC.NURSE ---
Pt provided with pillow. Did not want a blanket at this time. Call light within reach.
[2023-03-12] VITALS (25 sets, daily range): BP systolic 150–251; BP diastolic 72–123; PULSE 70–132; RESP 11–20; TEMP 36.4–37; O2SAT 94–99; BMI 31.1
--- NOTE | 2023-03-12 00:20 | PC.NURSE ---
Dr. Marcos at BS
--- NOTE | 2023-03-12 00:24 | PC.NURSE ---
Dr. Corado pagejuan
--- NOTE | 2023-03-12 00:26 | PC.NURSE ---
Dr. Marcos speaking with Dr. Corado
--- NOTE | 2023-03-12 00:30 | PC.NURSE ---
ER MD spoke with Dr Corado who wants to wait on admission to see how pt responds to medications being administered at this time.
--- NOTE | 2023-03-12 00:34 | PC.NURSE ---
PATIENT ADMITTED TO 217 OBSERVATION WITH HYPERTENSIVE CRISIS TO SERVICE OF DR. PARRA TO DR. MCKEON.
--- NOTE | 2023-03-12 00:48 | ECG_ITS ---
APPROVED REPORT Exam: Resting ECG HR:70 bpm ECG Measurements Heart Rate 70 AXES UT 247 P -31 QRSd 173 QRS 260 QT 483 T 116 QTc 504 Conclusion ELECTRONIC VENTRICULAR PACEMAKER ABNORMAL RHYTHM ECG UNCONFIRMED REPORT Electronically signed by : Remy Corcoran MD 03/12/2023 07:09:22
[2023-03-12 01:26] LABS: Troponin I < 0.01 ng/ml (0.00-0.034)
--- NOTE | 2023-03-12 02:22 | PC.NURSE ---
Rounded on pt. Pt voiced, I'm just not feeling good. I feel numb all over. Visitors at BS voiced some concern for pt. Dr. Marcos notified and went to [facility] to speak with pt and visitors.
--- NOTE | 2023-03-12 02:26 | PC.NURSE ---
attempted to call report. was transferred. no answer, will try again in a few minutes.
--- NOTE | 2023-03-12 02:41 | PC.NURSE ---
Rec'd report on pt from KEVIN Schilling in ER.
--- NOTE | 2023-03-12 02:58 | PC.NURSE ---
PT ARRIVED TO FLOOR AT THIS TIME
[2023-03-12 05:44] LABS: Basophils % 0.2 % (0.1-2.0); Eosinophils # 0.1 K/mm3 (0.0-0.4); Eosinophils % 0.3 % (0.1-12.0); Hematocrit 42.2 % (37.0-47.0); Hemoglobin 13.6 g/dL (12.2-16.2); Lymphocytes # 4.2 K/mm3 (0.7-4.5); Lymphocytes % 25.2 % (10-50); Mean Corpuscular HGB Conc 32.3 g/dL (31.8-35.4); Mean Corpuscular Hemoglobin 29.9 pg (27.0-31.2); Mean Corpuscular Volume 92.5 fl (81-99); Mean Platelet Volume 9.9 fl (7.4-10.4); Monocytes % 6.1 % (1.7-9.3); Neutrophils # 11.3 K/mm3 (1.8-7.8); Neutrophils % 68.3 % (37.0-80.0); Platelet Count 251 K/mm3 (142-424); Red Blood Count 4.56 M/mm3 (4.20-5.40); Red Cell Distribution Width 12.8 % (11.5-17.5); White Blood Count 16.6 K/mm3 (4.8-10.8)
[2023-03-12 05:46] LABS: MANUAL DIFFERENTIAL MANUAL DIFFERENTIAL (MANUAL DIFF)
[2023-03-12 05:47] LABS: Chloride 95 mmol/L (98-107); Sodium 130 mmol/L (136-145)
[2023-03-12 05:48] LABS: Potassium 4.2 mmoL/L (3.5-5.1)
[2023-03-12 05:51] LABS: Anion Gap 18.2 mEq/L (5-15); Carbon Dioxide 21 mmol/L (22.0-30.0); Glucose 286 mg/dl (74-100)
[2023-03-12 05:56] LABS: Blood Urea Nitrogen 43 mg/dl (7-17)
[2023-03-12 06:02] LABS: Lymphocytes % 42 % (10-50); Monocytes % 1 % (2-9); Neutrophils % 57 % (42-76); Platelet Estimate Normal; RBC Morphology Normal; Total Cells Counted 100
[2023-03-12 06:04] LABS: Creatinine Clearance Estimated 48 mL/min (50-200); Estimated Glomerular Filt Rate 47 ml/min (>60); GFR (African American) 57 ML/MIN (>60)
--- NOTE | 2023-03-12 07:29 | HMH.PHAINT1 ---
Pharmacy Intervention Comments: Patient's home medications reviewed and verified with patient's list brought in and the external history resource. - Gael Coleman, PharmD student
--- NOTE | 2023-03-12 08:20 | CT_ITS ---
FINAL REPORT TECHNIQUE: Thin section axial images were obtained through the paranasal sinuses without contrast. CLINICAL HISTORY: tenderness of right maxillary area, swelling COMPARISON: None FINDINGS: Postoperative changes from left antrectomy. The paranasal sinuses are clear. The right maxillary infundibulum is patent. There is no significant nasal septal deviation. Mastoids are clear. There is no acute osseous abnormality. There is periapical lucency surrounding tooth #6 concerning for periapical abscess. There is abnormal soft tissue within the overlying infraorbital face. No loculated fluid collection within the soft tissues, although evidence for abscess is limited without contrast. Limited imaging of the brain reveals bilateral extra-axial collections right greater than left. Evaluation is limited as no soft tissue or bone windows provided. These may represent chronic subdural hematomas. IMPRESSION: No evidence of acute sinusitis. Lucency surrounding tooth #6 most consistent with periapical abscess with inflammatory changes extending into the soft tissues of the infraorbital face. Soft tissue abscess not convincingly seen. 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 Incompletely evaluated. Please correlate with any prior CT head. Reviewed, Interpreted and Dictated by Angie Ponce MD Transcribed by Zita Doyle Authenticated and [facility]
--- NOTE | 2023-03-12 08:23 | PC.NURSE ---
Dr. Kuo at bedside. New meds ordered. Dr. Kuo concerned patient condition is sinus related.
--- NOTE | 2023-03-12 09:03 | EXP.HP ---
History of Present Illness *Admission Date: 03/12/23 *Reason for visit:: Elevated blood sugar and blood pressure *History of present illness: HPI narrative: This patient is an 87-year-old female with a history of hjh-pfcheqz-olzxdttnw type 2 diabetes, atrial fibrillation status post pacemaker placement, CHF, hypertension, and anxiety presented to the emergency department for evaluation with concern for hyperglycemia and hypertension at home. 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 She states that she had burning pain and nerve pain on the right side of her face that started on Sunday, and it worsened on so she went to see her primary care provider. There, she was prescribed tramadol, famciclovir, and prednisone. She has been taking those since, and she has noted significant hyperglycemia at home with blood sugars consistently in the 400-500 range. She is not typically on insulin, but her daughter has been giving her her NovoLog 70/30. She states that she gave her approximately 55 units yesterday and 42 so far today, but she is still been hyperglycemic and has had very dry mouth. She states that she has been very thirsty. She also notes that she feels like she is floating and lightheaded from her high blood pressure, with readings consistently greater than 200 systolic. She has been compliant with all of her home medications. She denies any fevers, chills, chest pain, shortness of breath, abdominal pain, nausea, vomiting, changes in bowel movements, or other concerns. Medical Decision Narrative: In summary, this patient is an 87-year-old female presenting to the emergency department for evaluation with concern for high blood sugar and high blood pressure readings at home. Differential diagnoses include hyperglycemia, HHS, DKA, hypertensive urgency, hypertensive emergency. The patient is clinically well-appearing on physical exam with reassuring vital signs aside from her hypertension at this time. It should be noted that her past medical history includes hypertension and diabetes, which are not currently at goal therapy and complicates all aspects of care as they are exacerbating current symptoms. Patient arrives with systolics consistently greater than 230. She is symptomatic from this with lightheadedness and a feeling of floating in her head. Given this, IV hydralazine was ordered. Lab work-up was ordered to evaluate for possible DKA, HHS, or other concerns. On reassessment, the patient complains of worsening right-sided facial pain and states that it is time for her to take her tramadol. Given this, a one-time dose of oral tramadol was ordered. She is found to be hyperglycemic, for which sliding scale insulin was ordered. No evidence of DKA or HHS on lab evaluation. Patient was given 10 mg of IV hydralazine with moderate improvement in her blood pressure. Given this, a dose of 20 mg was ordered. She had a drop in her systolic pressure from 252 just above 200. Will hold here for now. Patient stated that she felt pressure in her chest after this, so troponins and additional EKG were ordered. Troponins pending at this time, however EKG demonstrates no significant changes from prior EKG. Given continued hypertension and concern for hypertensive urgency as well as patient's hyperglycemia, I feel she would benefit from admission for further evaluation and management. I had an interactive discussion with the hospitalist, Dr. Corado, who will admit the patient on behalf of Dr. Kuo, who pt states is her PCP. The patient was admitted in stable condition. The above as per ER documentation. This a.m. patient states she feels horrible. She arrived to the room around 3 AM. She has not had any sleep. Her toes feel numb. She feels very anxious. She denies chest pain and shortness of breath. She states the inside of her mouth is very sore and make
--- NOTE | 2023-03-12 09:10 | EXP.ACUTE.PN ---
Subjective *Date: 03/12/23 *Time: 09:10 Interval history: At present the computer is not allowing me to sign the notes generated by ART Fitzgerald. I saw the patient today. Her chart is reviewed. She has been diagnosed as having right Moran's palsy but has not had any problems with her eyes. She has had swelling of the right maxillary sinus area and tenderness. Her blood pressures have been elevated and her blood sugars have been markedly elevated while she is on prednisone. She has cardiomyopathy with pacemaker in place and coronary artery disease. Her blood sugars have been elevated but she does not really take any medication for her diabetes. Medical Exam Vital signs and Labs for Last 24 Hours: Vital Signs Temp Pulse Pulse Resp BP BP Pulse Ox 03/12/23 07:32 97.8 F 03/12/23 06:06 03/12/23 06:00 70 16 172/77 H 95 03/12/23 05:00 70 20 165/74 H 94 L 03/12/23 04:00 98.6 F 03/12/23 04:41 03/12/23 04:00 70 18 188/84 H 03/12/23 04:00 70 03/12/23 03:07 70 03/12/23 03:00 98.4 F 132 H 18 205/113 H 99 03/12/23 03:15 98 F 76 16 196/92 H 03/12/23 03:00 03/12/23 02:00 70 196/92 H 97 03/12/23 01:30 70 201/86 H 97 03/12/23 01:01 70 196/88 H 97 03/12/23 00:30 70 228/108 H 96 03/12/23 00:53 70 16 208/90 H 97 03/12/23 00:12 70 245/118 H 96 03/12/23 00:00 70 251/123 H 95 03/11/23 23:30 72 249/113 H 96 03/11/23 22:39 98.2 F 74 16 232/130 H 98 O2 Del Method FiO2 03/12/23 07:32 03/12/23 06:06 Room Air 03/12/23 06:00 Room Air 03/12/23 05:00 03/12/23 04:00 03/12/23 04:41 Room Air 03/12/23 04:00 Room Air 96 03/12/23 04:00 03/12/23 03:07 03/12/23 03:00 Room Air 03/12/23 03:15 03/12/23 03:00 Room Air 03/12/23 02:00 Room Air 03/12/23 01:30 Room Air 03/12/23 01:01 Room Air 03/12/23 00:30 Room Air 03/12/23 00:53 Room Air 03/12/23 00:12 03/12/23 00:00 Room Air 03/11/23 23:30 Room Air 03/11/23 22:39 Intake and Output 03/11/23 03/12/23 03/12/23 19:59 03:59 11:59 Intake Total 1000 / 1000 0 / 1000 Output Total 300 / 300 Balance 700 / 700 0 / 700 Intake: Intake, Oral Amount 0 / 0 Intake, Total IV Amount 1000 / 1000 Output: Output, Urine Amount 300 / 300 Other: Weight 182 lb 1 oz 182 lb 1 oz Patient Weight 03/12/23 11:59 Weight 182 lb 1 oz Laboratory Results - last 24 hr 03/11/23 22:30: POC Glucose 313 H* 03/11/23 23:03: WBC 12.1 H, RBC 4.42, Hgb 13.3, Hct 41.1, MCV 92.9, MCH 30.1, MCHC 32.4, RDW 12.6, Plt Count 254, MPV 10.0, Neut % (Auto) 78.6, Lymph % (Auto) 16.9, [place] % (Auto) 4.1, Eos % (Auto) 0.3, Baso % (Auto) 0.1, Neut # (Auto) 9.5 H, Lymph # (Auto) 2.0, [place] # (Auto) 0.5, Eos # (Auto) 0.0, Baso # (Auto) 0.0, Sodium 130 L, Potassium 4.7, Chloride 93 L, Carbon Dioxide 28, Anion Gap 13.7, BUN 52 H, Creatinine 1.40 H, Estimated Creat Clear 25, Estimated GFR 36 L, Est GFR ( Amer) 43 L, Glucose 308 H, Calcium 9.2, Magnesium 2.0, Total Bilirubin 0.5, AST 46 H, ALT 32, Alkaline Phosphatase 120, Troponin I < 0.01, Total Protein 7.5, Albumin 4.0, Globulin 3.5 H, Albumin/Globulin Ratio 1.1, Acetone Level None detected 03/11/23 23:10: VBG pH 7.43 H, VBG pCO2 39.8, VBG pO2 66.1 H, VBG HCO3 25.8, VBG Total CO2 27.0, VBG O2 Saturation 93.6 H, VBG Base Excess 1.5 03/11/23 23:27: Urine Color Yellow, Urine Appearance Sl cloudy, Urine pH 5.5, Ur Specific [place] 1.015, Urine Protein Negative, Urine Glucose (UA) 2+, Urine Ketones Negative, Urine Blood Negative, Urine Nitrate Negative, Urine Bilirubin Negative, Urine Urobilinogen 0.2, Ur Leukocyte Esterase 2+ A, Urine RBC Occasional, Urine WBC 20-50, Ur Squamous Epith Cells 5-10, Urine Bacteria 2+ 03/11/23 23:33: SARS-CoV-2 (PCR) Not detected, Influenza A Untype (PCR) Not detected, Influenza Type B (PCR) Not detected 03/12/23 05:35: WBC 16.6 H D, RBC 4.56, Hgb
[2023-03-12 10:35] LABS: POC Glucose,Bedside 212 (70-110)
--- NOTE | 2023-03-12 12:45 | PC.NURSE ---
Called Dr. Way office, spoke with office nurse. Patient states, Ask Dr. Kuo if I can have some Xanax. Tell him I take Xanax at home if I need it. He doesnt prescribe it to me . Upon further review of home med reconciliation and pharmacy of choice I do not see Xanax on her active medications. Office nurse stated Dr. Kuo was at lunch and she would follow up once he returned. Patient and bedside sitter notified.
[2023-03-12 18:05] LABS: POC Glucose,Bedside 186 (70-110)
--- NOTE | 2023-03-12 19:06 | PC.NURSE ---
Per Dr. Kuo pt can come out of isolation. New meds ordered.
[2023-03-12 21:04] LABS: POC Glucose,Bedside 215 (70-110)
[2023-03-13] VITALS (13 sets, daily range): BP systolic 121–198; BP diastolic 56–90; PULSE 70; RESP 12–18; TEMP 36.7–37.4; O2SAT 93–95; BMI 31.1
[2023-03-13 06:19] LABS: Basophils % 0.3 % (0.1-2.0); Eosinophils # 0.3 K/mm3 (0.0-0.4); Eosinophils % 2.2 % (0.1-12.0); Hematocrit 42.1 % (37.0-47.0); Lymphocytes # 3.5 K/mm3 (0.7-4.5); Lymphocytes % 26.6 % (10-50); Mean Corpuscular HGB Conc 33.2 g/dL (31.8-35.4); Mean Corpuscular Hemoglobin 30.8 pg (27.0-31.2); Mean Corpuscular Volume 92.8 fl (81-99); Mean Platelet Volume 9.8 fl (7.4-10.4); Monocytes # 0.8 K/mm3 (0.1-1.0); Monocytes % 5.8 % (1.7-9.3); Neutrophils # 8.7 K/mm3 (1.8-7.8); Neutrophils % 65.1 % (37.0-80.0); Platelet Count 236 K/mm3 (142-424); Red Blood Count 4.54 M/mm3 (4.20-5.40); Red Cell Distribution Width 12.9 % (11.5-17.5); White Blood Count 13.3 K/mm3 (4.8-10.8)
[2023-03-13 06:33] LABS: Anion Gap 10.2 mEq/L (5-15); Blood Urea Nitrogen 32 mg/dl (7-17); Calcium 8.9 mg/dl (8.4-10.2); Carbon Dioxide 26 mmol/L (22.0-30.0); Chloride 99 mmol/L (98-107); Creatinine Clearance Estimated 44 mL/min (50-200); Estimated Glomerular Filt Rate 43 ml/min (>60); GFR (African American) 52 ML/MIN (>60); Glucose 143 mg/dl (74-100); Potassium 4.2 mmoL/L (3.5-5.1); Sodium 131 mmol/L (136-145)
--- NOTE | 2023-03-13 08:06 | EXP.ACUTE.PN ---
Subjective *Date: 03/13/23 *Time: 08:27 Interval history: Tooth really does hurt. Pain medicine helps as does ice application. She is able to eat very little due to the pain. She did sleep some during the night. Xanax really does help her to relax. She would like it more frequently. She denies chest pain and shortness of breath. Patient is requesting something for her bowels and for Diflucan since she is on an antibiotic. 03/12/2023 CT on sinuses FINDINGS: Postoperative changes from left antrectomy. The paranasal sinuses are clear. The right maxillary infundibulum is patent. There is no significant nasal septal deviation. Mastoids are clear. There is no acute osseous abnormality. There is periapical lucency surrounding tooth #6 concerning for periapical abscess. There is abnormal soft tissue within the overlying infraorbital face. No loculated fluid collection within the soft tissues, although evidence for abscess is limited without contrast. Limited imaging of the brain reveals bilateral extra-axial collections right greater than left. Evaluation is limited as no soft tissue or bone windows provided. These may represent chronic subdural hematomas. IMPRESSION: No evidence of acute sinusitis. Lucency surrounding tooth #6 most consistent with periapical abscess with inflammatory changes extending into the soft tissues of the infraorbital face. Soft tissue abscess not convincingly seen. 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 Incompletely evaluated. Please correlate with any prior CT head. White blood cell count has improved to 13,300 this morning. Blood chemistries show improvement in sodium at 131 with a BUN of 32 and creatinine of 1.2. Medical Exam Vital signs and Labs for Last 24 Hours: Vital Signs Temp Pulse Pulse Resp BP Pulse Ox O2 Del Method 03/13/23 07:58 98.8 F 03/13/23 06:41 Room Air 03/13/23 05:00 Room Air 03/13/23 05:56 70 14 166/56 H 93 L 03/13/23 04:00 98.1 F 70 14 161/90 H 93 L Room Air 03/13/23 04:00 70 03/13/23 03:00 Room Air 03/13/23 02:00 70 12 198/88 H 95 Room Air 03/13/23 00:00 70 03/12/23 20:00 70 03/13/23 00:27 Room Air 03/13/23 00:00 70 17 174/87 H 95 03/12/23 23:00 Room Air 03/12/23 22:00 70 16 150/72 H Room Air 03/12/23 21:00 Room Air 03/12/23 20:00 94 L Room Air 03/12/23 21:00 70 12 158/77 H 95 Room Air 03/12/23 16:00 70 03/12/23 12:00 70 03/12/23 17:00 Room Air 03/12/23 17:17 70 12 193/89 H 95 Room Air 03/12/23 15:00 Room Air 03/12/23 12:00 70 13 171/76 H 03/12/23 13:00 70 15 190/82 H 03/12/23 14:00 70 16 166/83 H 03/12/23 15:00 70 11 L 156/81 H 95 Room Air 03/12/23 13:00 Room Air 03/12/23 11:00 Room Air 03/12/23 09:00 Room Air 03/12/23 11:18 97.5 F L O2 Flow Rate FiO2 03/13/23 07:58 03/13/23 06:41 03/13/23 05:00 03/13/23 05:56 03/13/23 04:00 03/13/23 04:00 03/13/23 03:00 03/13/23 02:00 03/13/23 00:00 03/12/23 20:00 03/13/23 00:27 03/13/23 00:00 03/12/23 23:00 03/12/23 22:00 94 03/12/23 21:00 03/12/23 20:00 03/12/23 21:00 03/12/23 16:00 03/12/23 12:00 03/12/23 17:00 03/12/23 17:17 03/12/23 15:00 95 03/12/23 12:00 03/12/23 13:00 03/12/23 14:00 03/12/23 15:00 03/12/23 13:00 95 03/12/23 11:00 96 03/12/23 09:00 03/12/23 11:18 Intake and Output 07/17/23 07/18/23 07/18/23 19:59 03:59 11:59 Intake Total 530 / 530 325 / 855 Output Total 0 / 0 600 / 600 Balance 530 / 530 -600 / -70 325 / 255 Intake: Intake, Oral Amount 480 / 480 325 / 805 Infusion Intake 50 / 50 Ceftriaxone Sodium 1 gm In 0.9 50 / 50 % Sodium Chloride 50 ml @ 100 mls/hr IV Q24H [facility] Rx#:[id number] Output: Output, Urine Amount 0 / 0 600 / 600
--- NOTE | 2023-03-13 09:07 | PC.NURSE ---
Addendum entered by Tonia Heard RN 03/13/23 14:54: [address] called and spoke with Dr Kuo. pt reports weakness at this time, may pt have PT/OT consult. may pt be able to transfer out of stepdown? order PT/OT consult, transfer pt out of stepdown and notify care management that pt will have an appt with dr rausch on 03/15 @ 1030. Original Note: 804 notified Dany Fitzgerald face to face that pt is requesting diflucan r/t pt has a history of easily developing a yeast infection. [address] Kuo face to face that pt is requesting diflucan r/t pt has a history of easily developing a yeast infection.
--- NOTE | 2023-03-13 13:49 | HMH.OTEV ---
OT Inpatient Evaluation Rehab OT IP Evaluation Start: 03/13/23 12:46 Freq: ONCE Status: Active Protocol: Document 03/13/23 13:32 PARISCYN (Rec: 03/13/23 13:49 CHARANJIT [id number]) Rehab OT IP Assessment Subjective History This patient is an 87-year-old female with a history of non- insulin-dependent type 2 diabetes, atrial fibrillation status post pacemaker placement, CHF, hypertension, and anxiety presented to the emergency department for evaluation with concern for hyperglycemia and hypertension at home. 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 She states that she had burning pain and nerve pain on the right side of her face that started on Sunday, and it worsened on so she went to see her primary care provider. There, she was prescribed tramadol, famciclovir, and prednisone. She has been taking those since, and she has noted significant hyperglycemia at home with blood sugars consistently in the 400-500 range. She is not typically on insulin, but her daughter has been giving her her NovoLog 70/30. She states that she gave her approximately 55 units yesterday and 42 so far today, but she is still been hyperglycemic and has had very dry mouth. She states that she has been very thirsty. She also notes that she feels like she is floating and lightheaded from her high blood pressure, with readings consistently greater than 200 systolic. Sh
--- NOTE | 2023-03-13 14:05 | HMH.PTEV ---
Physical Therapy Evaluation Rehab PT IP Evaluation Start: 03/13/23 12:46 Freq: ONCE Status: Active Protocol: Document 03/13/23 14:02 RASHEEDA (Rec: 03/13/23 14:05 PHOJERSON [id number]) Subjective/History History History 87 yowf adm to [facility] with severe HTN and hyperglycemia. She has hx of DM, CHF. She reports recent hx of shingles and rawls's palsy. She reports she lives alone, 1 step to enter the home, and she is generally independent with all mobility without an AD. She does have cane, walker, and BSC at home if necessary. Subjective Subjective Pt reports she fels better this pm, but generally weak. Rehab PT IP Eval Objective Appearance Patient Behavior Appropriate Patient Orientation Person,Place,Time Difficulty following instructions none Speech Pattern Clear Ambulation Patient Able to Ambulate Yes Ambulation Observation IP General Gait Pattern Observation Shuffling Step Ambulation Distance (feet) 25 Ambulation Assistive Device None Ambulation Ability Supervision/Stand by Balance Ability to Arise Able, uses arms to help Sitting Balance Steady, safe Standing Balance Steady, wide stance Dynamic Sitting Balance Ability Good Dynamic Standing Balance Ability Good Transfers Bed Transfer Ability Supervision/Stand by Chair Transfer Ability Supervision/Stand by Sit to Stand Bed Transfer Ability Supervision/Stand by Sit to Stand Chair Transfer Ability Supervision/Stand by ROM All Extremities PT ROM Status WFL MMT All Extremities PT MMT WFL Rehab PT IP prob,goals,plan Problems Date of Evaluation: 03/13/23 Discharge Plan PT Discharge Plan Pt presents this pm at baseline for all mobility with more normalized BP and is appropriate to return home once medically stable for d/c. She would benefit from home health therapy after d/c as needed. G -code Required No Eval Complexity Eval Charge Codes 93989 - High Complexity PHYSICIAN CERTIFICATION: I certify the specified therapy services for Hannah Adame are required, authorized, and reviewed every 30 days.
--- NOTE | 2023-03-13 16:26 | DIET.NUTRFU ---
Spoke with patient and her daughter. Modified patient's diet order to mechanical ground to make chewing more tolerable. Added Glucerna to all trays to aid in meeting energy and protein needs. Notified nursing of blisters in mouth causing pain with eating and asked about potential medications to increase comfort. Patient reports lack of BM since admission potentially d/t lack of oral intake; BM regimen already in place.
--- NOTE | 2023-03-13 16:28 | PC.NURSE ---
pt has slept off and on this shift, ice pack applied to right cheek by pt when needed. lungs are clear throughout, bowel sounds are active in all quads. nad noted. pt has family/sitter at bedside. pt is alert and oriented, able to swallow meds whole with the exception of potassium which she requests be mixed in jello.
[2023-03-13 17:47] LABS: POC Glucose,Bedside 258 (70-110)
[2023-03-14] VITALS: BP 98/56; PULSE 70; RESP 20; TEMP 37.1; O2SAT 95
[2023-03-14 01:54] LABS: POC Glucose,Bedside 148 (70-110)
[2023-03-14 01:54] LABS: POC Glucose,Bedside 216 (70-110)
[2023-03-14 01:54] LABS: POC Glucose,Bedside 231 (70-110)
[2023-03-14 04:00] VITALS: BP 135/75; PULSE 70; RESP 16; TEMP 36.9; O2SAT 95; BMI 30.7
[2023-03-14 06:30] LABS: POC Glucose,Bedside 138 (70-110)
[2023-03-14 07:31] VITALS: BP 133/68; PULSE 70; RESP 16; TEMP 36.8; O2SAT 96
[2023-03-14 08:00] VITALS: PULSE 70
[2023-03-14 08:27] LABS: Basophils % 0.3 % (0.1-2.0); Eosinophils # 0.5 K/mm3 (0.0-0.4); Eosinophils % 3.9 % (0.1-12.0); Hematocrit 45.2 % (37.0-47.0); Hemoglobin 14.3 g/dL (12.2-16.2); Lymphocytes # 4.8 K/mm3 (0.7-4.5); Lymphocytes % 36.3 % (10-50); Mean Corpuscular HGB Conc 31.6 g/dL (31.8-35.4); Mean Corpuscular Hemoglobin 30.2 pg (27.0-31.2); Mean Corpuscular Volume 95.6 fl (81-99); Mean Platelet Volume 9.5 fl (7.4-10.4); Monocytes # 0.7 K/mm3 (0.1-1.0); Monocytes % 5.5 % (1.7-9.3); Neutrophils # 7.2 K/mm3 (1.8-7.8); Platelet Count 242 K/mm3 (142-424); Red Blood Count 4.73 M/mm3 (4.20-5.40); Red Cell Distribution Width 12.9 % (11.5-17.5); White Blood Count 13.3 K/mm3 (4.8-10.8)
[2023-03-14 08:33] LABS: Anion Gap 11.4 mEq/L (5-15); Blood Urea Nitrogen 31 mg/dl (7-17); Calcium 8.7 mg/dl (8.4-10.2); Carbon Dioxide 24 mmol/L (22.0-30.0); Chloride 98 mmol/L (98-107); Creatinine Clearance Estimated 37 mL/min (50-200); Estimated Glomerular Filt Rate 36 ml/min (>60); GFR (African American) 43 ML/MIN (>60); Glucose 204 mg/dl (74-100); Potassium 4.4 mmoL/L (3.5-5.1); Sodium 129 mmol/L (136-145)
--- NOTE | 2023-03-14 08:53 | EXP.ACUTE.PN ---
Subjective *Date: 03/14/23 *Time: 10:32 Interval history: Patient states her pain is controlled as long as she gets her pain medication and the Xanax. She was able to rest last night. She is still having a lot of tooth pain. She can only drink and has difficulty eating. Medical Exam Vital signs and Labs for Last 24 Hours: Vital Signs Temp Pulse Pulse Resp BP Pulse Ox O2 Del Method 03/14/23 07:31 98.2 F 70 16 133/68 96 Room Air 03/14/23 06:36 Room Air 03/14/23 05:00 Room Air 03/14/23 04:00 98.4 F 70 16 135/75 95 Room Air 03/14/23 04:00 70 03/14/23 03:00 Room Air 03/14/23 00:00 70 03/14/23 00:58 Room Air 03/14/23 00:00 98.7 F 70 20 98/56 L 95 Room Air 03/13/23 20:00 70 03/13/23 20:00 Room Air 03/13/23 23:00 Room Air 03/13/23 20:00 99.4 F 70 16 121/61 95 Room Air 03/13/23 20:45 Room Air 03/13/23 19:25 Room Air 03/13/23 17:00 Room Air 03/13/23 16:00 70 03/13/23 12:00 70 03/13/23 15:00 Room Air 03/13/23 15:19 98.7 F 70 17 145/78 H 93 L Room Air 03/13/23 12:00 70 18 150/75 H 93 L Room Air 03/13/23 10:00 70 18 155/76 H 93 L Room Air 03/13/23 13:00 Room Air 03/13/23 11:00 Room Air 03/13/23 09:00 Room Air 03/13/23 11:17 98.1 F Intake and Output 03/13/23 03/14/23 03/14/23 19:59 03:59 11:59 Intake Total 360 / 540 180 / 540 Output Total 0 / 200 0 / 200 200 / 200 Balance 360 / 340 0 / 340 -20 / 340 Intake: Intake, Oral Amount 360 / 540 180 / 540 Output: Output, Urine Amount 0 / 200 0 / 200 200 / 200 Other: Number of Unmeasured Voids 1 1 Weight 182 lb 1.065 oz 180 lb Patient Weight 03/14/23 11:59 Weight 180 lb Laboratory Results - last 24 hr 03/13/23 06:36: POC Glucose 148 H 03/13/23 12:04: POC Glucose 231 H 03/13/23 17:24: POC Glucose 258 H 03/13/23 20:26: POC Glucose 216 H 03/14/23 06:15: POC Glucose 138 H 03/14/23 08:10: WBC 13.3 H, RBC 4.73, Hgb 14.3, Hct 45.2, MCV 95.6, MCH 30.2, MCHC 31.6 L, RDW 12.9, Plt Count 242, MPV 9.5, Neut % (Auto) 54.0, Lymph % (Auto) 36.3, [place] % (Auto) 5.5, Eos % (Auto) 3.9, Baso % (Auto) 0.3, Neut # (Auto) 7.2, Lymph # (Auto) 4.8 H, [place] # (Auto) 0.7, Eos # (Auto) 0.5 H, Baso # (Auto) 0.0, Sodium 129 L, Potassium 4.4, Chloride 98, Carbon Dioxide 24, Anion Gap 11.4, BUN 31 H, Creatinine 1.40 H, Estimated Creat Clear 37, Estimated GFR 36 L, Est GFR ( Amer) 43 L, Glucose 204 H, Calcium 8.7 I & O for Labs for Last 24 Hours: Intake & Output 03/11/23 03/12/23 03/13/23 03/14/23 11:59 11:59 11:59 11:59 Intake Total 1000 / 1240 855 / 855 540 / 540 Output Total 600 / 600 600 / 600 200 / 200 Balance 400 / 640 255 / 255 340 / 340 Weight 182 lb 1 oz 182 lb 1.065 oz 180 lb Microbiology Reports for the Last 24 Hours: Microbiology 03/11/23 23:27 Urine,Clean Catch Urine Culture - Final Multiple organisms, suggests contamination. Constitutional: Present no acute distress Comment:: Right face appears with less edema. Respiratory: Present CTA bilaterally Cardiac: Present Reg Rate and Rhythm GI: Present soft and normal bowel sounds; Absent distention or guarding Extremities: Absent edema Neuro: Present alert and oriented x 3 Assessment and Plan *Assessment and plan (1) Hypertensive urgency: Status: Acute Category: Medical Code(s): I16.0 - Hypertensive urgency (2) Hyperglycemia due to type 2 diabetes mellitus: Status: Acute Qualifiers: Diabetes mellitus credit review analyst insulin use: without shelter use Qualified Code(s): E11.65 - Type 2 diabetes mellitus with hyperglycemia Category: Medical Code(s): E11.65 - Type 2 diabetes mellitus with hyperglycemia (3) Maxillary sinusitis, acute: Status: Acute Category: Medical Code(s): J01.00 - Acute maxillary sinusitis, unspecif
[2023-03-14 11:07] VITALS: BP 131/68; PULSE 70; RESP 18; TEMP 36.7; O2SAT 96
[2023-03-14 11:11] LABS: POC Glucose,Bedside 250 (70-110)
--- NOTE | 2023-03-16 09:04 | EXP.DC.SUM ---
General Admission date:: 03/12/23 Discharge date: 03/14/23 HPI HPI HPI: HPI narrative: This patient is an 87-year-old female with a history of zov-limcpbs-ruioaliuz type 2 diabetes, atrial fibrillation status post pacemaker placement, CHF, hypertension, and anxiety presented to the emergency department for evaluation with concern for hyperglycemia and hypertension at home. 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 She states that she had burning pain and nerve pain on the right side of her face that started on Sunday, and it worsened on so she went to see her primary care provider. There, she was prescribed tramadol, famciclovir, and prednisone. She has been taking those since, and she has noted significant hyperglycemia at home with blood sugars consistently in the 400-500 range. She is not typically on insulin, but her daughter has been giving her her NovoLog 70/30. She states that she gave her approximately 55 units yesterday and 42 so far today, but she is still been hyperglycemic and has had very dry mouth. She states that she has been very thirsty. She also notes that she feels like she is floating and lightheaded from her high blood pressure, with readings consistently greater than 200 systolic. She has been compliant with all of her home medications. She denies any fevers, chills, chest pain, shortness of breath, abdominal pain, nausea, vomiting, changes in bowel movements, or other concerns. Medical Decision Narrative: In summary, this patient is an 87-year-old female presenting to the emergency department for evaluation with concern for high blood sugar and high blood pressure readings at home. Differential diagnoses include hyperglycemia, HHS, DKA, hypertensive urgency, hypertensive emergency. The patient is clinically well-appearing on physical exam with reassuring vital signs aside from her hypertension at this time. It should be noted that her past medical history includes hypertension and diabetes, which are not currently at goal therapy and complicates all aspects of care as they are exacerbating current symptoms. Patient arrives with systolics consistently greater than 230. She is symptomatic from this with lightheadedness and a feeling of floating in her head. Given this, IV hydralazine was ordered. Lab work-up was ordered to evaluate for possible DKA, HHS, or other concerns. On reassessment, the patient complains of worsening right-sided facial pain and states that it is time for her to take her tramadol. Given this, a one-time dose of oral tramadol was ordered. She is found to be hyperglycemic, for which sliding scale insulin was ordered. No evidence of DKA or HHS on lab evaluation. Patient was given 10 mg of IV hydralazine with moderate improvement in her blood pressure. Given this, a dose of 20 mg was ordered. She had a drop in her systolic pressure from 252 just above 200. Will hold here for now. Patient stated that she felt pressure in her chest after this, so troponins and additional EKG were ordered. Troponins pending at this time, however EKG demonstrates no significant changes from prior EKG. Given continued hypertension and concern for hypertensive urgency as well as patient's hyperglycemia, I feel she would benefit from admission for further evaluation and management. I had an interactive discussion with the hospitalist, Dr. Corado, who will admit the patient on behalf of Dr. Kuo, who pt states is her PCP. The patient was admitted in stable condition. The above as per ER documentation. This a.m. patient states she feels horrible. She arrived to the room around 3 AM. She has not had any sleep. Her toes feel numb. She feels very anxious. She denies chest pain and shortness of breath. She states the inside of her mouth is very sore and makes it difficult for her to chew anything. She has no difficult
--- NOTE | 2023-03-16 14:25 | CARE MANAGER ---
Attempted to contact patient x2 related to hospital discharge. No VM option.
== END 2023-03-14 12:10 | disposition home or self-care (01) | DRG 158 ==
LOC: ER 03-12 00:30 → 2ND 03-12 00:48
PROVIDERS: Student in an Organized Health Care Education/Training Program; Admitting Provider Family Medicine; Emergency Provider Emergency Medicine; PCP Family Medicine; Visit Provider Family Medicine
DX: K04.7 Periapical abscess without sinus (principal); B00.89 Other herpesviral infection; E87.1 Hypo-osmolality and hyponatremia; I16.0 Hypertensive urgency; E11.65 Type 2 diabetes mellitus with hyperglycemia; J01.00 Acute maxillary sinusitis, unspecified; Z95.0 Presence of cardiac pacemaker; I50.9 Heart failure, unspecified; I48.91 Unspecified atrial fibrillation; F41.9 Anxiety disorder, unspecified; G51.0 Bell's palsy; E03.9 Hypothyroidism, unspecified; I11.0 Hypertensive heart disease with heart failure
CPT/HCPCS: 36415; 70486; 80048; 80053; 81001; 82009; 82803; 82962; 83735; 84443; 84484; 85007; 85025; 87086; 87636; 93005; 93041; 97163; 97165; 99285; J0696; J2405

== ENCOUNTER → 2023-06-06 12:24 | Outpatient (CLI) | payer MEDICARE, SELFPAY ==
[2023-06-06 13:49] LABS: Alanine Aminotransferase 25 U/L (12-78); Albumin Level 4.2 g/dl (3.5-5.0); Albumin/Globulin Ratio 1.6 (1.1-1.8); Alkaline Phosphatase 92 U/L (38-126); Anion Gap 11.6 mEq/L (5-15); Aspartate Amino Transferase 35 U/L (14-36); Bilirubin,Total 0.5 mg/dl (0.2-1.3); Blood Urea Nitrogen 34 mg/dl (7-17); Calcium 9.5 mg/dl (8.4-10.2); Carbon Dioxide 31 mmol/L (22.0-30.0); Chloride 100 mmol/L (98-107); Estimated Glomerular Filt Rate 43 ml/min (>60); GFR (African American) 52 ML/MIN (>60); Globulin 2.6 g/dL (1.3-3.2); Glucose 136 mg/dl (74-100); Potassium 4.6 mmoL/L (3.5-5.1); Sodium 138 mmol/L (136-145); Total Protein,Serum 6.8 g/dl (6.3-8.2)
== END ==
PROVIDERS: PCP Family Medicine; Visit Provider Physician Assistant Medical
DX: E11.9 Type 2 diabetes mellitus without complications (principal); Z79.4 Long term (current) use of insulin
CPT/HCPCS: 36415; 80053

== ENCOUNTER → 2023-07-20 11:29 | Outpatient (CLI) | payer MEDICARE, SELFPAY ==
--- NOTE | 2023-07-20 11:33 | XR_ITS ---
FINAL REPORT CLINICAL HISTORY: Shoulder pain FINDINGS: 3 views of the left shoulder were obtained. There is no evidence of fracture or dislocation. Mild degenerative changes are noted of the AC joint and glenohumeral joint. A left subclavian pacer is present. No focal soft tissue abnormality is identified. IMPRESSION: Mild degenerative changes. No acute bony abnormality. Authenticated and ERN
--- NOTE | 2023-07-20 11:33 | XR_ITS ---
FINAL REPORT CLINICAL HISTORY: neck pain FINDINGS: 3 views of the cervical spine were obtained. There is no evidence of fracture. There is mild anterolisthesis of C4 on C5 and C5 on C6. Mild and moderate degenerative changes are seen with with multilevel osteophytes, largest at C5-6 and C6-7. No focal soft tissue abnormality is identified. IMPRESSION: No acute bony abnormality. Mild and moderate degenerative change. Authenticated and ERN
--- NOTE | 2023-07-20 11:33 | XR_ITS ---
FINAL REPORT CLINICAL HISTORY: shoulder pain FINDINGS: 3 views of the right shoulder were obtained. There is no evidence of fracture or dislocation. Mild degenerative changes are noted of the AC joint and glenohumeral joint. No focal soft tissue abnormality is identified. IMPRESSION: Mild degenerative change. No acute bony abnormality. Authenticated and ERN
== END ==
PROVIDERS: PCP Family Medicine; Visit Provider Orthopaedic Surgery
DX: M54.2 Cervicalgia; M25.511 Pain in right shoulder; M25.512 Pain in left shoulder
CPT/HCPCS: 72040; 73030

== ENCOUNTER 2025-05-07 05:38 | Emergency (ER) | payer MEDICARE, SELFPAY ==
--- OUTSIDE RECORDS SUMMARY | 2025-03-19 16:00 | XMS_ITS | Encounter Summary ---
Author Organization [employer] ([place], [place], [place], [place]) Address [address] [place] [address] Care Team Providers Care Import And Export Clerk Name Role Phone Cortez Kuo Primary Care Provider [phone] Reason for Visit * Reason Comments Pacemaker /ICD Home Monitoring Encounter Details Date Type Department Care Team (Late st Contact Info) Description 03/19/2025 4:00 PM EDT Clinical Support [facility] Electrophysiology [address] [place], [place] [id number] Isaías Gilman MD [address] [place] [address] [address] [place] [address] Encounter for adjustment or management of cardiac device (Primary Dx); Left bundle branch block (LBBB); Permanent atrial fibrillation (HCC); Sick sinus syndrome (HCC); Chronic diastolic congestive heart failure (HCC); Cardiac pacemaker in situ Social History Tobacco Use Types Packs/Day Years Used Date Smoking Tobacco: Former Smokeless Tobacco: Never Alcohol Use Standard Drinks/Week Comments Not Currently 0 (1 standard drink = 0.6 oz pur e alcohol) Family and Community Support Answer Preston e Recorded Help with Day to Day Activities Not on file 09/07/2023 Feeling Lonely or Isolated Not on file 09/07 Educational Attainment Answer Date Jose De Jesus rded Speak language other than Guyanese at home Not on file 09/07/2023 Want help with school or training Not on file 09/07/2023 Substance Use Answer Date Recorded Used prescription meds for non-medical reasons N ot on file 09/07/2023 Used illegal drugs past 12 months Not on file 09/07/2023 Comments Unknown Sex and Gender Information Value Date Recorded Sex Assigned at Not on file Legal Sex Female 5:22 PM CDT Gender Identity Not on file Sexual Orientation Not on file documented as of this encounter Plan of Treatment Not on file documented as of this encounter Visit Diagnoses Diagnosis Encounter for adjustment or management of cardiac device- Primary Left bundle branch block (LBBB) Permanent atrial fibrillation (HCC) Atrial fibrillation Sick sinus syndrome (HCC) Sinoatrial node dysfunction Chronic diastolic congestive heart failure (HCC) Cardiac pacemaker in situ documented in this encounter Care Teams Import And Export Clerk Relationship Specialty Start Date End Date Cortez Kuo [id number] [place] [address] PCP - General 07/11/22 documented as of this encounter
[2025-05-07] VITALS (11 sets, daily range): BP systolic 137–174; BP diastolic 57–81; PULSE 70–77; RESP 12–16; TEMP 36.4–36.7; O2SAT 97–100
--- NOTE | 2025-05-07 05:20 | XR_ITS ---
PROCEDURE INFORMATION: Exam: XR Pelvis Exam date and time: 05/07/2025 5:57 AM Age: 89 years old Clinical indication: Pelvic pain; Additional info: Fall TECHNIQUE: Imaging protocol: Radiologic exam of the pelvis. Views: 1 or 2 view. COMPARISON: CR XR FEMUR RT 2V 05/07/2025 5:57 AM FINDINGS: Bones/joints: osseous structures of the pelvis without an acute process. rami are intact. Sacroiliac joints without separation/diastases/fracture. Iliac bones unremarkable/noncontributory. Degenerative changes within the visualized portions of the caudal aspect of the lumbar spine. Severe degenerative changes left hip. Soft tissues: See Bones/joints finding. IMPRESSION: 1. No acute process. 2. Severe degenerative changes left hip.
--- NOTE | 2025-05-07 05:20 | XR_ITS ---
PROCEDURE INFORMATION: Exam: XR Right Femur Exam date and time: 05/07/2025 5:57 AM Age: 89 years old Clinical indication: Pain; Thigh; Right; Additional info: Fall, knee pain TECHNIQUE: Imaging protocol: Radiologic exam of the right femur. Views: 2 views. COMPARISON: CR XR KNEE RT 4V 05/07/2025 5:57 AM FINDINGS: Bones/joints: Laou-wv-fomuiesk degenerative changes right hip. No visualized fracture. The trabecular stress markings within the proximal femur are normal. No obvious acetabular fracture. Diaphysis of the femur unremarkable. The osseous structures about the knee are normal. No joint effusion. Soft tissues: Unremarkable. IMPRESSION: No fracture
--- NOTE | 2025-05-07 05:20 | XR_ITS ---
PROCEDURE INFORMATION: Exam: XR Right Tibia and Fibula Exam date and time: 05/07/2025 5:57 AM Age: 89 years old Clinical indication: Pain; Lower leg; Right; Additional info: Fall, knee pain TECHNIQUE: Imaging protocol: Radiologic exam of the right tibia and fibula. Views: 2 views. COMPARISON: CR XR KNEE RT 4V 05/07/2025 5:57 AM FINDINGS: Bones/joints: Osseous structures normal. No erosive changes. No periosteal response. No fracture. No soft tissue calcifications. Osseous structures about the knee normal. No joint effusion. Soft tissues unremarkable. Medial and lateral malleoli normal. ankle mortise is symmetrical. Hindfoot foot unremarkable. Tibiotalar joint and the subtalar joint normal. Soft tissues: See Bones/joints finding. IMPRESSION: Normal leg.
--- NOTE | 2025-05-07 05:20 | XR_ITS ---
PROCEDURE INFORMATION: Exam: XR Right Knee Exam date and time: 05/07/2025 5:57 AM Age: 89 years old Clinical indication: Pain; Knee; Right; Additional info: Fall, knee pain TECHNIQUE: Imaging protocol: Radiologic exam of the right knee. Views: 4 or more views. COMPARISON: CR XR FEMUR RT 2V 05/07/2025 5:57 AM FINDINGS: Bones/joints: Medial and lateral compartment appear grossly normal. No significant joint space narrowing. No osteophytosis. Mild patellofemoral degenerative changes. Chondrocalcinosis Soft tissues: Normal. IMPRESSION: No visualized fracture. Mild patellofemoral degenerative changes.
[2025-05-07] MEDS: ACETAMINOPHEN 500MG TAB 1000 MG PO (05:38)
--- NOTE | 2025-05-07 05:46 | [facility].EDGENADL ---
Discharge Plan Disposition Patient Disposition: Home, Self-Care Prescriptions Prescriptions: No Action Eliquis 5 mg tablet 5 mg PO BID alprazolam [Xanax] 0.5 mg tablet 0.5 mg PO DAILYP PRN (Reason: Anxiety) bisoprolol fumarate 5 MG tablet 5 mg PO BID potassium chloride 10 MEQ tablet extended release 10 meq PO DAILY lisinopril 20 mg Tablet 20 mg PO DAILY prednisone 20 mg tablet 20 mg PO TID famciclovir 500 mg tablet 500 mg PO TID furosemide [Lasix] 20 mg Tablet 20 mg PO DAILY nitrofurantoin monohyd/m-cryst [Macrobid] 100 mg Capsule 100 mg PO DAILY Rx Instructions: must administer with a meal/food magnesium glycinate-mag oxide 120 mg magnesium Capsule 120 mg PO HS cholecalciferol (vitamin D3) [Vitamin D3] 125 mcg (5,000 unit) Tablet 5,000 unit PO DAILY hydrocodone-acetaminophen 5-325 mg Tablet 1 tab PO Q6HP PRN (Reason: facial pain) Qty: 20 0RF levothyroxine [Synthroid] 100 mcg Tablet 100 mcg PO DAILYDM Qty: 30 4RF cefdinir 300 mg capsule 300 mg PO BID Qty: 20 0RF fluconazole [Diflucan] 150 mg tablet 150 mg PO DAILY Qty: 1 0RF Referrals Follow up/Referrals: Provider,Referral, [Primary Care Provider, Medical] - See instructions Activity Restrictions/Add. Instructions Additional Instructions/Restrictions: Take Tylenol as needed for pain. Ice the knee to prevent swelling. Return to the emergency department for any new or worsening symptoms. Follow-up with your primary care provider as soon as possible Clinical Impressions Clinical Impression: Acute pain of right knee Print Language Print Language: German Discharge ED Provider: Charley Adam General Adult HPI <Naun Nair MD - Last Filed: 05/07/25 06:52> General Chief complaint: Fall Stated complaint: fall Time Seen by Provider: 05/07/25 05:40 Mode of Arrival: EMS Source of Information: Patient and EMS Description of Symptoms (Recalled from ER Triage Doc. by RN): Fall Pt presnets to the ED with c/o R sided knee pain after a fall [employer]. Pt states that she was getting out of bed and slipped and fell Pt is on eliquis. Pt denies hitting head or LOC. History of Present Illness HPI narrative: 89-year-old female with history of hypertension, diabetes failure, pacemaker, on Eliquis presents after falling onto her right knee. She reports that her legs were cramping little bit and she got up to go to the kitchen. She tripped and tried to catch herself but landed directly on her right knee. She did not land on her left knee, did not land on her chest or back or buttock. She did not hit her head at all. She reports her only concern is her right knee. She did not take anything prior to arrival. Related Data Home Medications ?Medication ?Instructions ?Recorded ?Confirmed alprazolam 0.5 mg tablet (Xanax) 0.5 mg PO DAILYP PRN Anxiety 06/24/19 07/17/23 apixaban 5 mg tablet (Eliquis) 5 mg PO BID Blood thinner/AFIB 06/24/19 07/17/23 bisoprolol fumarate 5 mg tablet 5 mg PO BID Blood pressure 06/13/20 07/17/23 potassium chloride 10 mEq 10 meq PO DAILY Supplement 06/13/20 07/17/23 tablet,extended release cholecalciferol (vitamin D3) 125 5,000 unit PO DAILY Supplement 03/12/23 07/17/23 mcg (5,000 unit) tablet (Vitamin D3) famciclovir 500 mg tablet 500 mg PO TID Shingles 03/12/23 07/17/23 furosemide 20 mg tablet (Lasix) 20 mg PO DAILY Fluid 03/12/23 07/17/23 lisinopril 20 mg tablet 20 mg PO DAILY Blood pressure 03/12/23 07/17/23 magnesium glycinate-mag oxide 120 mg PO HS Supplement 03/12/23 07/17/23 nitrofurantoin 100 mg PO DAILY Infection 03/12/23 07/17/23 monohydrate/macrocrystals 100 mg capsule (Macrobid) prednisone 20 mg tablet 20 mg PO TID steroid 03/12/23 07/17/23 Previous Rx's ?Medication ?Instructions ?Recorded cefdinir 300 mg capsule 300 mg PO BID abcess #20 caps 03/14/23 fluconazole 150 mg tablet 150 mg PO DAILY vaginitis #1 tab 03/14/23 (Diflucan) hydrocodone 5 mg-acetaminophen 325 1 tab PO Q6HP PRN facial pain #20 03/14/23 mg tablet tabs levothyroxine 100 mcg tablet 100 mcg PO DAILYDM #30 tabs 03/14/23 (Synthroid) Allergies Allergy/AdvReac Type Severity Reaction Status Date / Time bee venom protein (honey bee) Allergy Unknown Unknown Verified 07/17/23 11:30 allergy reaction meperidine Allergy Unknown Unknown Verified 07/17/23 11:30 allergy reaction methylprednisolone Allergy Unknown Hives Verified 07/17/23 11:30 Penicillins Allergy Unknown Unknown Verified 07/17/23 11:30 allergy reaction fentanyl Allergy Other Verified 05/07/25 05:29 PFSH <Naun Nair MD - Last Filed: 05/07/25 06:52> [facility] Disclaimer: The information contained in this section may have been updated after the patient was seen, as this information can be updated by other users. Medical History A-fib Atrial fibrillation Blister of foot Candidal vulvovaginitis Candidal vulvovaginitis Community acquired pneumonia Community acquired pneumonia COVID-19 COVID-19 Hypothyroidism Left foot pain MRSA (methicillin resistant staph aureus) culture positive Near syncope Open wound of left foot Pacemaker Plantar wart of left foot Pneumonia Pneumonia Pre-syncope Renal insufficiency Type 2 diabetes mellitus Surgical History (Updated 03/12/23 @ 09:25 by Sary Fitzgerald APRN) Hx of atrioventricular node ablation History of appendectomy Hx of cholecystectomy Family History Other Coronary artery disease Diabetes Social History Smoking Status: Never smoker alcohol intake: never substance use type: denies use current occupational status: retired Travel in the last 8 weeks?: None household members: other housing: house current occupation: [employer] current occupational exposures/hazards: No caffeine: Yes Other Medical History Have you received the Flu Vaccine for this season: No Have you received the Pneumonia Vaccine: Yes <Naun Nair MD - Last Filed: 05/07/25 06:52> ROS Obtained: Yes All systems reviewed & no additional complaints except as documented Physical Exam <Naun Nair MD - Last Filed: 05/07/25 06:52> General General appearance: alert and in no apparent distress Head Head exam: atraumatic and normocephalic Eye Eye exam: Present normal appearance, PERRL and EOMI ENT ENT exam: Present normal oropharynx and normal external ear exam Neck Neck exam: Present normal inspection and full ROM Chest Chest inspection: Present normal inspection and symmetric chest wall rise; Absent tenderness Respiratory Respiratory exam: Present normal lung sounds bilaterally; Absent respiratory distress Cardiovascular Cardiovascular exam: Present regular rate and normal rhythm Abdominal Exam Abdominal exam: Present soft; Absent distention, tenderness or guarding Extremities Exam Extremities exam: Present edema and joint swelling (Bruising and tenderness to the right knee, intact straight leg raise. Tenderness to the proximal tib-fib) Back Exam Back exam: Present normal inspection; Absent tenderness Neurological Exam Neurological exam: Present alert and oriented X3; Absent motor sensory deficit Psychiatric Psychiatric exam: Present normal affect and normal mood Skin Skin exam: Present warm, dry and normal color Lymphatic Lymphatic Findings: no adenopathy Medical Decision Making <Naun Nair MD - Last Filed: 05/07/25 06:52> Medical Records Medical records reviewed: Yes I reviewed the patient's medical records. Screening: Per USPSTF and CDC recommendations, given the prevalence of disease in our region, it is our hospital?s policy to screen for HIV and viral Hepatitis for all patients aged 18 and over and those with ongoing risk factors. Peter Inquiry Pt receiving controlled substance: No ePter was queried for this patient: No Vital Signs: 05/07/25 05:23 05/07/25 05:50 05/07/25 06:00 Temperature 97.6 F Temperature Source Oral Pulse Rate 70 72 Pulse Rate [Left] 77 Respiratory Rate 14 14 16 Blood Pressure Blood Pressure [Right Arm] 166/68 H Blood Pressure Mean Blood Pressure Mean [Right Arm] 100 Blood Pressure Source [Right Arm] Automatic Cuff Blood Pressure Position [Right Arm] Sitting 02 Sat by Pulse Oximetry 100 100 100 Oxygen Delivery Method Room Air 05/07/25 06:15 05/07/25 06:29 05/07/25 06:29 Temperature Temperature Source Pulse Rate 70 70 Pulse Rate [Left] Respiratory Rate 14 13 Blood Pressure 150/57 H Blood Pressure [Right Arm] Blood Pressure Mean 110 Blood Pressure Mean [Right Arm] Blood Pressure Source [Right Arm] Blood Pressure Position [Right Arm] 02 Sat by Pulse Oximetry 98 98 Oxygen Delivery Method 05/07/25 06:30 05/07/25 06:45 05/07/25 07:00 Temperature Temperature Source Pulse Rate 70 72 70 Pulse Rate [Left] Respiratory Rate 13 12 12 Blood Pressure 174/81 H Blood Pressure [Right Arm] Blood Pressure Mean 112 Blood Pressure Mean [Right Arm] Blood Pressure Source [Right Arm] Blood Pressure Position [Right Arm] 02 Sat by Pulse Oximetry 98 99 98 Oxygen Delivery Method 05/07/25 08:14 Temperature Temperature Source Pulse Rate 71 Pulse Rate [Left] Respiratory Rate 14 Blood Pressure 159/65 H Blood Pressure [Right Arm] Blood Pressure Mean Blood Pressure Mean [Right Arm] Blood Pressure Source [Right Arm] Blood Pressure Position [Right Arm] 02 Sat by Pulse Oximetry 97 Oxygen Delivery Method Lab Data Lab results reviewed: Yes I reviewed the patient's lab results. Orders (Tests/Meds): ED MEDICATIONS Discontinued Medications Generic Name Dose Route Start Last Admin Trade Name Freq PRN Reason Stop Dose Admin Acetaminophen 1,000 mg 05/07/25 05:20 05/07/25 05:38 Acetaminophen 500mg Tab PO 05/07/25 05:21 1,000 mg ONCE ONE Administration ORDERS Category Date Time Status CT bony pelvis Stat Cat Scan 05/07/25 06:[address] knee RT wo con Stat Cat Scan 05/07/25 06:41 Completed Femur XR right 2 views [XR femur RT 2V] Stat Exams 05/07/25 05:20 Completed Pelvis XR 1-2 views [XR pelvis 1-2V] Stat Exams 05/07/25 05:20 Completed Tibia/fibula XR right 2 views [XR tibia fibula RT 2V] Exams 05/07/25 05:20 Completed Stat XR knee RT 4V Stat Exams 05/07/25 05:20 Completed HIV Combo Stat Lab 05/07/25 05:28 Ordered Hepatitis C Ab Qual. W/ RFX Stat Lab 05/07/25 05:28 Ordered Medical Decision Narrative: 89-year-old female with history of hypertension,, Diabetes, pacemaker in place, on Eliquis presents after tripping and landing on her right knee, did not hit her head, did not fall over, did not strike anything else or sustain any other injuries. History was obtained via interactive discussion with patient, EMS, chart review. On arrival, patient is [afebrile, hemodynamically stable, satting appropriately, alert, oriented x4, GCS 15], moving all extremities spontaneously. Full physical exam performed and significant for bruising and swelling to the right knee. Nontender in the chest abdomen pelvis head and spines. Differential includes but is not limited to fracture, dislocation, neurovascular/ligamentous injury Patient was given Tylenol for symptomatic management and correction of underlying abnormalities. Workup initiated including radiographs of the right lower extremity. I considered and discussed the utility of CT imaging in this case given she is on blood thinners, but patient is adamant that she sustained no head trauma and she does not think that she needs a CT scan. Based on her exam, there is no evidence of trauma besides the knee. After discussion with patient we will forego CT imaging at this time. On re-evaluation, patient [remains afebrile, HD stable.] Imaging independently interpreted by me and significant for no obvious fracture on radiographs.. See radiology read for full review of final results. Given the severity of the patient's pain, despite negative radiographs, I am concerned for occult fracture. CT of the bony pelvis and right knee were ordered as result. At this time care handed off to oncoming physician. <Charley Adam MD - Last Filed: 05/07/25 08:51> Vital Signs: 05/07/25 05:23 05/07/25 05:50 05/07/25 06:00 Temperature 97.6 F Temperature Source Oral Pulse Rate 70 72 Pulse Rate [Left] 77 Respiratory Rate 14 14 16 Blood Pressure Blood Pressure [Right Arm] 166/68 H Blood Pressure Mean Blood Pressure Mean [Right Arm] 100 Blood Pressure Source [Right Arm] Automatic Cuff Blood Pressure Position [Right Arm] Sitting 02 Sat by Pulse Oximetry 100 100 100 Oxygen Delivery Method Room Air 05/07/25 06:15 05/07/25 06:29 05/07/25 06:29 Temperature Temperature Source Pulse Rate 70 70 Pulse Rate [Left] Respiratory Rate 14 13 Blood Pressure 150/57 H Blood Pressure [Right Arm] Blood Pressure Mean 110 Blood Pressure Mean [Right Arm] Blood Pressure Source [Right Arm] Blood Pressure Position [Right Arm] 02 Sat by Pulse Oximetry 98 98 Oxygen Delivery Method 05/07/25 06:30 05/07/25 06:45 05/07/25 07:00 Temperature Temperature Source Pulse Rate 70 72 70 Pulse Rate [Left] Respiratory Rate 13 12 12 Blood Pressure 174/81 H Blood Pressure [Right Arm] Blood Pressure Mean 112 Blood Pressure Mean [Right Arm] Blood Pressure Source [Right Arm] Blood Pressure Position [Right Arm] 02 Sat by Pulse Oximetry 98 99 98 Oxygen Delivery Method 05/07/25 08:14 Temperature Temperature Source Pulse Rate 71 Pulse Rate [Left] Respiratory Rate 14 Blood Pressure 159/65 H Blood Pressure [Right Arm] Blood Pressure Mean Blood Pressure Mean [Right Arm] Blood Pressure Source [Right Arm] Blood Pressure Position [Right Arm] 02 Sat by Pulse Oximetry 97 Oxygen Delivery Method Orders (Tests/Meds): ED MEDICATIONS Discontinued Medications Generic Name Dose Route Start Last Admin Trade Name Freq PRN Reason Stop Dose Admin Acetaminophen 1,000 mg 05/07/25 05:20 05/07/25 05:38 Acetaminophen 500mg Tab PO 05/07/25 05:21 1,000 mg ONCE ONE Administration ORDERS Category Date Time Status CT bony pelvis Stat Cat Scan 05/07/25 06:[address] knee RT wo con Stat Cat Scan 05/07/25 06:41 Completed Femur XR right 2 views [XR femur RT 2V] Stat Exams 05/07/25 05:20 Completed Pelvis XR 1-2 views [XR pelvis 1-2V] Stat Exams 05/07/25 05:20 Completed Tibia/fibula XR right 2 views [XR tibia fibula RT 2V] Exams 05/07/25 05:20 Completed Stat XR knee RT 4V Stat Exams 05/07/25 05:20 Completed HIV Combo Stat Lab 05/07/25 05:28 Ordered Hepatitis C Ab Qual. W/ RFX Stat Lab 05/07/25 05:28 Ordered Medical Decision Narrative: 89-year-old female with history of hypertension,, Diabetes, pacemaker in place, on [email or web address] presents after tripping and landing on her right knee, did not hit her head, did not fall over, did not strike anything else or sustain any other injuries. History was obtained via interactive discussion with patient, EMS, chart review. On arrival, patient is [afebrile, hemodynamically stable, satting appropriately, alert, oriented x4, GCS 15], moving all extremities spontaneously. Full physical exam performed and significant for bruising and swelling to the right knee. Nontender in the chest abdomen pelvis head and spines. Differential includes but is not limited to fracture, dislocation, neurovascular/ligamentous injury Patient was given Tylenol for symptomatic management and correction of underlying abnormalities. Workup initiated including radiographs of the right lower extremity. I considered and discussed the utility of CT imaging in this case given she is on blood thinners, but patient is adamant that she sustained no head trauma and she does not think that she needs a CT scan. Based on her exam, there is no evidence of trauma besides the knee. After discussion with patient we will forego CT imaging at this time. On re-evaluation, patient [remains afebrile, HD stable.] Imaging independently interpreted by me and significant for no obvious fracture on radiographs.. See radiology read for full review of final results. Given the severity of the patient's pain, despite negative radiographs, I am concerned for occult fracture. CT of the bony pelvis and right knee were ordered as result. At this time care handed off to oncoming physician. Kia: I assumed care of patient at 7 A. At this point patient is ambulatory. CT's pending. On personal interpretation no acute fracture or dislocation. Radiology agreed no acute fracture. Patient agreeable discharge with outpatient follow-up with primary care provider. Procedures <Naun Nair MD - Last Filed: 05/07/25 06:52> Risk/Benefits of Procedure(s) Were Explained: Yes Critical Care <Naun Nair MD - Last Filed: 05/07/25 06:52> Critical Care Time Critical Care Time: No
--- OUTSIDE RECORDS SUMMARY | 2025-05-07 05:52 | XMS_ITS | Encounter Summary ---
Author Organization [employer] ([place], [place], [place], [place]) Address [address] [place] [address] Care Team Providers Care In Flight Refueling Operator Name Role Phone Cortez Kothari Primary Care Provider [phone] Encounter Details Date Type Department Care Team (Late st Contact Info) Description 09/25/2018 Transcribed Document [facility] Family Medicine [address] [place] [address] ProviderEmelia MD [address] [place] [address] Social History Tobacco Use Types Packs/Day Years Used Date Smoking Tobacco: Never Assessed Comments Unknown Sex and Gender Information Value Date Recorded Sex Assigned at Not on file Legal Sex Female 5:22 PM CDT Gender Identity Not on file Sexual Orientation Not on file documented as of this encounter Miscellaneous Notes * Cerner Conversion Note - Emelia Contreras MD - 09/25/2018 3:50 PM EMOTIONAL DISABILITIES TEACHER [address] , [place] [address] Patient Copy Patient Information: Name: HANNAH ADAME Current Date: 09/25/2018 15:50:49 : 1935 Patient Address: [facility] [place] [place] [address] Patient Attending Physician: LOBO KELLY MD-CAR Primary Care Provider: CORTEZ KOTHARI MD-TUNG Primary Care Provider Discharge Diagnosis: Weight on Admission: 185 lb, 0 oz Comment: Discharge Instructions: Diet after Discharge: Resume usual diet as tolerated Activity after Discharge: Rest and relax today, No strenuous activities, Other: see post radial sheet for activity restriction Driving after Discharge: Do not drive, Other: for 24 hours Showering/Bathing:Other: May shower in 24 hours. No tub bathng, soaking, or swimming for 3-5 days Wound/Incision Care after Discharge: Keep operative site/wound site clean and dry, Other: Remove dressing in 24 hours Immunizations Documented During Stay: No Immunizations Found Special Instructions: Monitor site for bleeding. If bleeding occurs, apply manual pressure and call 911 Heart Failure Discharge Instructions (if any): Stroke Related Discharge Instructions (if any): Warfarin Related Discharge Instructions (if any): Final Medication List: Other Medications ALPRAZolam (Xanax) 0.5 Milligram(s) Oral Every Day as needed as needed for anxiety. apixaban (Eliquis) 5 Milligram(s) Oral Two Times A Day. aspirin 81 Milligram(s) Oral Every Day. bisoprolol 5 Milligram(s) Oral Two Times A Day. cholecalciferol (Vitamin D3) 5,000 International Units Oral Every Day. clopidogrel 75 Milligram(s) Oral Every Day. furosemide (Lasix) 20 Milligram(s) Oral Every Day. levothyroxine (Synthroid) 88 Microgram(s) Oral Every Day. lisinopril 30 Milligram(s) Oral Every Day. magnesium glycinate 120 Milligram(s) Oral At Bedtime. nitrofurantoin (Macrobid) 100 Milligram(s) Oral At Bedtime. potassium chloride (potassium chloride extended release) 10 Milliequivalent(s) Oral Every Day. Patient Allergies: fentaNYL; anabolic steroids; Demerol HCl; Bee Stings; penicillin Medication Instructions: Take your medications faithfully. Do NOT skip medication. Do NOT stop taking medications without the direction of a physician. Carry a list of your medications with you at all times, and take this medication list with you to your first follow up visit. Report any side effects. Avoid herbal remedies unless discussed with your physician. As part of your treatment plan, your physician may have prescribed a limited course of a controlled substance. This medication may be given to help people with moderate or severe pain or for other medical conditions, but there are risks involved with treatment. Common side effects may include nausea, constipation, drowsiness, sweating, itching, dry mouth, and rash. More serious side effects may include cognitive and motor impairment, like problems with thinking, concentrating, alertness, and movement (e.g. slowed reflexes), and driving and operating heavy machinery can be dangerous. It is important for you to talk to your physician if you have these side effects or questions. These controlled substances can produce physical dependence and be habit-forming if taken for an extended period of time, which means that the body has gotten used to them and may experience withdrawal symptoms if they are abruptly stopped. Withdrawal symptoms can include runny nose, sweating, goose bumps, diarrhea, abdominal cramping, rapid heartbeat, difficulty sleeping, and nervousness. Patient education materials: Angiogram, Care After Refer to this sheet in the next few weeks. These instructions provide you with information about caring for yourself after your procedure. Your health care provider may also give you more specific instructions. Your treatment has been planned according to current medical practices, but problems sometimes occur. Call your health care provider if you have any problems or questions after your procedure. What can I expect after the procedure? After your procedure, it is typical to have the following: ??? Bruising at the catheter insertion site that usually fades within 1?2 weeks. ??? Blood collecting in the tissue (hematoma) that may be painful to the touch. It should usually decrease in size and tenderness within 1?2 weeks. Follow these instructions at home: ??? Take medicines only as directed by your health care provider. ??? You may shower 24?48 hours after the procedure or as directed by your health care provider. Remove the bandage (dressing) and gently wash the site with plain soap and water. Pat the area dry with a clean towel. Do not rub the site, because this may cause bleeding. ??? Do nottake baths, swim, or use a hot tub until your health care provider approves. ??? Check your insertion site every day for redness, swelling, or drainage. ??? Do not apply powder or lotion to the site. ??? Do notlift over 10 lb (4.5 kg) for 5 days after your procedure or as directed by your health care provider. ??? Ask your health care provider when it is okay to: ? Return to work or school. ? Resume usual physical activities or sports. ? Resume sexual activity. ??? Do notdrive home if you are discharged the same day as the procedure. Have someone else drive you. ??? You may drive 24 hours after the procedure unless otherwise instructed by your health care provider. ??? Do notoperate machinery or power tools for 24 hours after the procedure or as directed by your health care provider. ??? If your procedure was done as an outpatient procedure, which means that you went home the same day as your procedure, a responsible adult should be with you for the first 24 hours after you arrive home. ??? Keep all follow-up visits as directed by your health care provider. This is important. Contact a health care provider if: ??? You have a fever. ??? You have chills. ??? You have increased bleeding from the catheter insertion site. Hold pressure on the site. Get help right away if: ??? You have unusual pain at the catheter insertion site. ??? You have redness, warmth, or swelling at the catheter insertion site. ??? You have drainage (other than a small amount of blood on the dressing) from the catheter insertion site. ??? The catheter insertion site is bleeding, and the bleeding does not stop after 30 minutes of holding steady pressure on the site. ??? The area near or just beyond the catheter insertion site becomes pale, cool, tingly, or numb. This information is not intended to replace advice given to you by your health care provider. Make sure you discuss any questions you have with your health care provider. Document Released: 03/01/2006 Document Revised: 01/18/2017 Document Reviewed: 01/14/2014 [employer] Interactive Patient Education ? 2017 [employer] Radial Site Care Introduction Refer to this sheet in the next few weeks. These instructions provide you with information about caring for yourself after your procedure. Your health care provider may also give you more specific instructions. Your treatment has been planned according to current medical practices, but problems sometimes occur. Call your health care provider if you have any problems or questions after your procedure. What can I expect after the procedure? After your procedure, it is typical to have the following: ??? Bruising at the radial site that usually fades within 1?2 weeks. ??? Blood collecting in the tissue (hematoma) that may be painful to the touch. It should usually decrease in size and tenderness within 1?2 weeks. Follow these instructions at home: ??? Take medicines only as directed by your health care provider. ??? You may shower 24?48 hours after the procedure or as directed by your health care provider. Remove the bandage (dressing) and gently wash the site with plain soap and water. Pat the area dry with a clean towel. Do not rub the site, because this may cause bleeding. ??? Do nottake baths, swim, or use a hot tub until your health care provider approves. ??? Check your insertion site every day for redness, swelling, or drainage. ??? Do notapply powder or lotion to the site. ??? Do notflex or bend the affected arm for 24 hours or as directed by your health care provider. ??? Do notpush or pull heavy objects with the affected arm for 24 hours or as directed by your health care provider. ??? Do notlift over 10 lb (4.5 kg) for 5 days after your procedure or as directed by your health care provider. ??? Ask your health care provider when it is okay to:? Return to work or school. ? Resume usual physical activities or sports. ? Resume sexual activity. ??? Do notdrive home if you are discharged the same day as the procedure. Have someone else drive you. ??? You may drive 24 hours after the procedure unless otherwise instructed by your health care provider. ??? Do notoperate machinery or power tools for 24 hours after the procedure. ??? If your procedure was done as an outpatient procedure, which means that you went home the same day as your procedure, a responsible adult should be with you for the first 24 hours after you arrive home. ??? Keep all follow-up visits as directed by your health care provider. This is important. Contact a health care provider if: ??? You have a fever. ??? You have chills. ??? You have increased bleeding from the radial site. Hold pressure on the site. Get help right away if: ??? You have unusual pain at the radial site. ??? You have redness, warmth, or swelling at the radial site. ??? You have drainage (other than a small amount of blood on the dressing) from the radial site. ??? The radial site is bleeding, and the bleeding does not stop after 30 minutes of holding steady pressure on the site. ??? Your arm or hand becomes pale, cool, tingly, or numb. This information is not intended to replace advice given to you by your health care provider. Make sure you discuss any questions you have with your health care provider. Document Released: 09/15/2011 Document Revised: 01/18/2017 Document Reviewed: 03/01/2015 ? 2017 [employer] Moderate Conscious Sedation, Adult, Care After These instructions provide you with information about caring for yourself after your procedure. Your health care provider may also give you more specific instructions. Your treatment has been planned according to current medical practices, but problems sometimes occur. Call your health care provider if you have any problems or questions after your procedure. What can I expect after the procedure? After your procedure, it is common: ??? To feel sleepy for several hours. ??? To feel clumsy and have poor balance for several hours. ??? To have poor judgment for several hours. ??? To vomit if you eat too soon. Follow these instructions at home: For at least 24 hours after the procedure: ??? Do not: ? Participate in activities where you could fall or become injured. ? Drive. ? Use heavy machinery. ? Drink alcohol. ? Take sleeping pills or medicines that cause drowsiness. ? Make important decisions or sign legal documents. ? Take care of children on your own. ??? Rest. Eating and drinking ??? Follow the diet recommended by your health care provider. ??? If you vomit: ? Drink water, juice, or soup when you can drink without vomiting. ? Make sure you have little or no nausea before eating solid foods. General instructions ??? Have a responsible adult stay with you until you are awake and alert. ??? Take [id number] and prescription medicines only as told by your health care provider. ??? If you smoke, do not smoke without supervision. ??? Keep all follow-up visits as told by your health care provider. This is important. Contact a health care provider if: ??? You keep feeling nauseous or you keep vomiting. ??? You feel light-headed. ??? You develop a rash. ??? You have a fever. Get help right away if: ??? You have trouble breathing. This information is not intended to replace advice given to you by your health care provider. Make sure you discuss any questions you have with your health care provider. Document Released: 06/03/2014 Document Revised: 01/15/2017 Document Reviewed: 12/02/2016 [employer] Interactive Patient Education ? 2017 [employer]. Medication Leaflets: isosorbide mononitrate (EYE renee SOR bide MON oh ROBERTA trate) Priyankar, [place] What is the most important information I should know about isosorbide mononitrate? You should not take erectile dysfunction medicine (Viagra, Cialis, Levitra, Stendra, Staxyn, sildenafil, avanafil, tadalafil, vardenafil) while you are taking isosorbide mononitrate. Taking these medicine together can cause a sudden and serious decrease in blood pressure. Seek emergency medical attention if you have early symptoms of a heart attack (chest pain or pressure, pain spreading to your jaw or shoulder, sweating, general ill feeling). What is isosorbide mononitrate? Isosorbide mononitrate is a nitrate that dilates (widens) blood vessels, making it easier for blood to flow through them and easier for the heart to pump. Isosorbide mononitrate is used to prevent angina attacks (chest pain). Isosorbide mononitrate will not treat an angina attack that has already begun. Isosorbide mononitrate may also be used for purposes not listed in this medication guide. What should I discuss with my healthcare provider before taking isosorbide mononitrate? You should not use isosorbide mononitrate if: ? you are allergic to isosorbide mononitrate, isosorbide dinitrate, or nitroglycerin; or ?? you have early signs of a heart attack (chest pain or pressure, pain spreading to your jaw or shoulder, nausea, sweating). You should not take erectile dysfunction medicine (Viagra, Cialis, Levitra, Stendra, Staxyn, sildenafil, avanafil, tadalafil, vardenafil) while you are taking isosorbide mononitrate. Taking these medicines together can cause a sudden and serious decrease in blood pressure. To make sure isosorbide mononitrate is safe for you, tell your doctor if you have: ? congestive heart failure; ?? kidney disease; or ?? low blood pressure. It is not known whether this medicine will harm an unborn baby. Tell your doctor if you are or plan to become . It is not known whether isosorbide mononitrate passes into breast milk or if it could affect the nursing baby. Tell your doctor if you are breast-feeding. How should I take isosorbide mononitrate? Follow all directions on your prescription label. Your doctor may occasionally change your dose. Do not take this medicine in larger or smaller amounts or for longer than recommended. If you use too much isosorbide mononitrate, it might stop working as well in controlling your condition. Try to rest or stay seated when you take this medicine (may cause dizziness or fainting). Do not crush, chew, or break an extended-release tablet. Swallow it whole. Not all brands and forms of isosorbide mononitrate are taken the same number of times per day. You may need to take the medicine only once daily, in the morning after getting out of bed. You may also need a second dose later in the day. Follow your doctor's dosing instructions very carefully. If your doctor changes your brand, strength, or type of isosorbide mononitrate, your dosage needs may change. Ask your pharmacist if you have any questions about the new kind of isosorbide mononitrate you receive at the pharmacy. You may have very low blood pressure while taking this medicine. Call your doctor if you are sick with vomiting or diarrhea, or if you are sweating more than usual. Prolonged illness can lead to a serious electrolyte imbalance, making it dangerous for you to use isosorbide mononitrate. Use isosorbide mononitrate regularly to prevent an angina attack. Get your prescription refilled before you run out of medicine completely. You should not stop using isosorbide mononitrate suddenly or you could have a severe attack of angina. Keep this medicine on hand at all times. Get your prescription refilled before you run out of medicine completely. Store at room temperature away from moisture, heat, and light. Keep the bottle tightly closed when not in use. What happens if I miss a dose? Take the missed dose as soon as you remember. Skip the missed dose if it is almost time for your next scheduled dose. Do not take extra medicine to make up the missed dose. What happens if I overdose? Seek emergency medical attention or call the Poison Help line at . An overdose of isosorbide mononitrate can be fatal. Overdose symptoms may include a severe throbbing headache, fever, confusion, severe dizziness, fast or pounding heartbeats, vision problems, nausea, vomiting, stomach pain, bloody diarrhea, trouble breathing, sweating, cold or clammy skin, fainting, and seizure (convulsions). What should I avoid while taking isosorbide mononitrate? This medicine may impair your thinking or reactions. Be careful if you drive or do anything that requires you to be alert. Avoid getting up too fast from a sitting or lying position, or you may feel dizzy. Get up slowly and steady yourself to prevent a fall. Avoid drinking alcohol. Alcohol may increase certain side effects of isosorbide mononitrate (dizziness, drowsiness, feeling light-headed, or fainting). What are the possible side effects of isosorbide mononitrate? Get emergency medical help if you have signs of an allergic reaction: hives; difficulty breathing; swelling of your face, lips, tongue, or throat. Call your doctor at once if you have: ? a light-headed feeling, like you might pass out; ?? worsening angina pain; ?? fast or slow heart rate; or ?? pounding heartbeats or fluttering in your chest. Isosorbide mononitrate can cause severe headaches. These headaches may gradually become less severe as you continue to use nitroglycerin. Do not stop taking this medicine to avoid headaches. Ask your doctor before using any headache pain medication. Common side effects may include: ? headache; or ?? flushing (warmth, redness, or tingly feeling). This is not a complete list of side effects and others may occur. Call your doctor for medical advice about side effects. You may report side effects to FDA at 9-730-THZ-1988. What other drugs will affect isosorbide mononitrate? Taking isosorbide mononitrate with certain other medicines can cause severely low blood pressure. This includes medicine to treat erectile dysfunction or pulmonary arterial hypertension. Serious, life-threatening side effects may occur. Tell your doctor about all your current medicines and any you start or stop using, especially: ? avanafil (Stendra); ?? a diuretic or 'water pill'; ?? nitroglycerin; ?? riociguat (Adempas); ?? sildenafil (Viagra, Revatio); ?? tadalafil (Cialis, Adcirca); or ?? vardenafil (Levitra, Staxyn). This list is not complete. Other drugs may interact with isosorbide mononitrate, including prescription and sdhm-fvv-rpylcir medicines, vitamins, and herbal products. Not all possible interactions are listed in this medication guide. Where can I get more information? Your pharmacist can provide more information about isosorbide mononitrate. Remember, keep this and all other medicines out of the reach of children, never share your medicines with others, and use this medication only for the indication prescribed. Every effort has been made to ensure that the information provided by [employer] is accurate, up-to-date, and complete, but no guarantee is made to that effect. Drug information contained herein may be time sensitive. [employer] information has been compiled for use by healthcare practitioners and consumers in the [place] and therefore [employer] does not warrant that uses outside of the [place] are appropriate, unless specifically indicated otherwise. [employer]'s drug information does not endorse drugs, diagnose patients or recommend therapy. [employer] drug information is an informational resource designed to assist licensed healthcare practitioners in caring for their patients and/or to serve consumers viewing this service as a supplement to, and not a substitute for, the expertise, skill, knowledge and judgment of healthcare practitioners. The absence of a warning for a given drug or drug combination in no way should be construed to indicate that the drug or drug combination is safe, effective or appropriate for any given patient. [employer] does not assume any responsibility for any aspect of healthcare administered with the aid of information [employer] provides. The information contained herein is not intended to cover all possible uses, directions, precautions, warnings, drug interactions, allergic reactions, or adverse effects. If you have questions about the drugs you are taking, check with your doctor, nurse or pharmacist. Copyright 5179-5818 [employer]. Version: 13.. Revision Date: 11/02/2016. CIGARETTE SMOKING: The facts are clear, cigarette smoking will shorten your life. Smoking can cause many illnesses along the way. As a healthcare provider, we recommend that you stop smoking. Assistance with quitting is available by contacting 3-954-XRPN-NOW. This is a free resource providing counseling, support, and referral. Or you may contact your personal physician. STROKE is an EMERGENCY [employer] ACT F.A.S.T! FACE ?? Facial droop ?? Uneven smile ARM ?? Arm numbness ?? Arm weakness SPEECH ?? Slurred speech ?? Difficulty speaking or understanding TIME ?? Call 911 and get to the hospital immediately Have the ambulance go to the nearest stroke center. STROKE Risk Factors High blood pressure High cholesterol Heart Disease Diabetes Smoking Heavy alcohol use Physical inactivity and obesity Atrial Fibrillation (irregular heartbeat) Family history of stroke Reminder: Be sure to sign up for the [employer] patient portal, which gives you 19/03 access to your medical information ??? including these discharge instructions ??? using your computer, smartphone, or tablet. Just go to [employer] to get started. Questions? Call . [facility] would like to thank you for allowing us to assist you with your healthcare needs. MEGHA Bell KATHLEEN BRUCE, (or community relations representative) have received the above patient education materials/instructions and have verbalized understanding: Patient Signature _ Date/Time Patient Air Conditioning Unit Assembler Signature (if needed) Date/Time Clinician/Hospital Air Conditioning Unit Assembler Signature (if needed) Date/Time Electronically signed by Juan, [facility] [employer] Director Cerner at 12/12/2022 9:56 AM CDT documented in this encounter Plan of Treatment Not on file documented as of this encounter Visit Diagnoses Not on filedocumented in this encounter Care Teams In Flight Refueling Operator Relationship Specialty Start Date End Date Cortez Kothari [address] [place] [address] PCP - General 07/11/22 documented as of this encounter
--- OUTSIDE RECORDS SUMMARY | 2025-05-07 05:52 | XMS_ITS | Clinical Summary ---
Author Organization [facility] Address [address] [place] [address] Care Team Providers Care Rental Car Porter Name Role Phone [place] Valencia MD Primary Care Provider [phone] Allergies Active Allergy Reactions Criticality Noted Date Comments Penicillins Hives 10/07/2021 Medications Eliquis 5 MG tablet tablet Take 5 mg by mouth 2 (Two) Times a Day. 2 Active atorvastatin (LIPITOR) 10 MG tablet Take 10 mg by mouth Daily. 2 Active bisoprolol (ZEBeta) 5 MG tablet Take 5 mg by mouth 2 (Two) Times a Day. 2 Active Synthroid 100 MCG tablet Take 100 mcg by mouth Daily. 2 Active lisinopril (PRINIVIL,ZESTRIL) 20 MG tablet Take 20 mg by mouth Daily. 2 Active nitrofurantoin, macrocrystal-monohy drate, (MACROBID) 100 MG capsule Take 100 mg by mouth 2 (Two) Times a Day. 2 Active potassium chloride 10 MEQ CR tablet Take 10 mEq by mouth Daily. 1 Active furosemide (LASIX) 40 MG tablet Take 40 mg by mouth Daily. Active vitamin D3 125 MCG (5000 UT) capsule capsule Take 5,000 Units by mouth Daily. Active Magnesium 125 MG capsule Take 120 mg by mouth Daily. Active ALPRAZolam (XANAX) 0.5 MG tablet Take 0.5 mg by mouth As Needed for Anxiety. Active hydroCHLOROthiazide (HYDRODIURIL) 25 MG tablet 2 Active ondansetron ODT (ZOFRAN-ODT) [address] 1 tablet under the tongue Every 8 (Eight) Hours As Needed. 15 tablet 01/20/2022 2:20 PM EDT 2 Active oxyCODONE-acetamino phen (PERCOCET) 5-325 MG per tablet Take 1 tablet by mouth every six hours as needed for pain 15 tablet 01/20/2022 2:20 PM EDT 2 Active Active Problems Problem Noted Date Diagnosed Date Uncontrolled type 2 diabetes mellitus with hyper glycemia 10/07/2021 Assessment & Plan (01/03/2022 1:48 PM EDT): a1c at goal of 7.0 No changes are needed.. Assessment & Plan (10/07/2021 5:27 PM EST): a1c has dropped dramatically since adding juli and her diabetes is in range. My only concern stems from using juli in a patient with hx of chf. At this point her chf is compensated and it's ok to keep her on the juli but we need to watch out for any signs of worsening chf. The next diabetes medication would probably have to be an sglt2 inhibitory because of their beneficial effects on heart failure Acquired hypothyroidism 10/07/2021 Assessment & Plan (10/07/2021 5:27 PM EST): Recent tsh is minimally elevated. I would not change the dose unless tsh were over 10 Social History Tobacco Use Types Packs/Day Years Used Date Smoking Tobacco: Former Smokeless Tobacco: Never Alcohol Use Standard Drinks/Week Comments Never 0 (1 standard drink = 0.6 oz pur e alcohol) Abuse Screen Answer Date Recorded Unsafe at Home or Work/School Not on file Feels Threatened by Someone? Not on file 04/2023 Does Anyone Keep You from Co ntacting Others or Doint Things Outside the Home? Not on file 06/04/2023 Physical Sign of Abuse Present Not on file 1 Housing Stability Answer Date Recorded Current Living Arrangements Not on file 04/2023 Potentially Unsafe Housing Conditions Not on lorena e 06/04/2023 Family and Community Support Answer Preston e Recorded Help with Day-to-Day Activities Not on file 06/04/2023 Lonely or Isolated Not on file 06/04/2023 Employment Answer Date Recorded Do you want help finding or keeping work or a kelsey b? Not on file 06/04/2023 Disabilities Answer Date Recorded Concentrating, Remembering, or Making Decisions Difficulty Not on file 06/04/2023 Doing Errands Independently Difficulty Not on fi le 06/04/2023 Education Answer Date Recorded Help with school or training? Not on file Preferred Language Not on file 06/04/2023 Comments Unknown Sex and Gender Information Value Date Recorded Sex Assigned at Not on file Legal Sex Female 10:16 AM EDT Gender Identity Not on file Sexual Orientation Not on file Last Filed Vital Signs Vital Sign Reading Time Taken Comments Blood Pressure 122/75 01/03/2022 1:26 PM EDT Pulse 106 01/03/2022 1:26 PM EDT Temperature - - Respiratory Rate - - Oxygen Saturation 100% 01/03/2022 1:26 PM EDT Inhaled Oxygen Concentration - - Weight 83.5 kg (184 lb) 01/03/2022 1:26 PM EDT Height 162.6 cm (5' 4 ) 01/03/2022 1:26 PM EDT Body Mass Index 31.58 01/03/2022 1:26 PM EDT Plan of Treatment Health Maintenance Due Date Last Done Comments DXA SCAN 1935 Pneumococcal Vaccine 50+ (1 of 1 - PCV) 1986 ZOSTER VACCINE (1 of 2) 1986 RSV Vaccine - Adults (1 - 1- dose 75+ series) 2011 ANNUAL PHYSICAL 10/07/2021 COVID-19 Vaccine (1 - 2023-2 5 season) 2025 INFLUENZA VACCINE 05/27/2025 06/16/2019, , 05/23/2017 TDAP/TD VACCINES (2 - Td or Tdap) 12/28/2026 017 HEMOGLOBIN A1C Discontinued 06/05/2023, 12/25, 10/07/2021 Procedures Procedure Name Priority Date/Time Associated Diagnosis Comments POCT GLYCOSYLATED HEMOGLOBIN (HGB A1C) Routine 01/03/2022 1:43 PM EDT Uncontrolled type 2 diabetes mellitus with hyperglycemia from Last 3 Months or Most Recently Relevant to Health Maintenance Results * POC Glycosylated Hemoglobin (Hb A1C) (01/03/2022 1:43 PM EDT) Hemoglobin A1C 7.0 % [facility] Lot Number [id number] [facility] Expiration Date 09-12-2023 [facility] Blood 01/03/2022 1:43 PM EDT Jose King MD POINT OF CARE TEST ORD ERABLES Final Result [facility]
[address] [place] [address], from Last 3 Months or Most Recently Relevant to Health Maintenance Insurance [facility] MEDICARE REPLACE Care Teams Rental Car Porter Relationship Specialty Start Date End Date [place] Valencia MD [address] [place] [place] [address] PCP - General Family Medicine 06/08/21
--- OUTSIDE RECORDS SUMMARY | 2025-05-07 05:52 | XMS_ITS | Encounter Summary ---
Author Organization [facility] ([place], [place], [place], [place]) Address [address] [place] [address] Care Team Providers Care Microfilmer Name Role Phone Cortez Kuo Primary Care Provider [phone] Reason for Visit * Reason Comments Medication Refill Encounter Details Date Type Department Care Team (Late st Contact Info) Description 04/12/2024 Refill [facility] Cardiology [address] [place] [address] Jeison Donis APRN [address] [facility] [address] [place] [address] Primary hypertension Social History Tobacco Use Types Packs/Day Years [...] De Jesus rded Speak language other than Citizen Of The [place] at home Not on file 09/07/2023 Want [...] as of this encounter Visit Diagnoses Diagnosis Primary hypertension Unspecified essential hypertension documented in this encounter Care Teams Microfilmer Relationship Specialty Start Date End Date Cortez Kuo [address] [place] [id number] PCP - General 07/11/22 documented as of this encounter
--- OUTSIDE RECORDS SUMMARY | 2025-05-07 05:52 | XMS_ITS | Encounter Summary ---
Author Organization [employer] ([place], [place], [place], [place]) Address [address] [place] [address] Care Team Providers Care Design Assistant Name Role Phone Cortez Kuo Primary Care Provider [phone] Encounter Details Date Type Department Care Team (Late st Contact Info) Description 09/25/2018 Transcribed Document [facility] [place] [address] [place] [address] ProviderEmelia MD [address] [place], [place] [address] Social History Tobacco Use Types Packs/Day Years Used Date Smoking Tobacco: Never Assessed Comments Unknown Sex and Gender Information Value Date Recorded Sex Assigned at Not on file Legal Sex Female 5:22 PM CDT Gender Identity Not on file Sexual Orientation Not on file documented as of this encounter Miscellaneous Notes * Cerner Conversion Note - Emelia Contreras MD - 09/25/2018 11:23 AM COTTON ACREAGE MEASURER Pre Procedure Adult Entered On: 09/25/2018 11:29 EST Performed On: 09/25/2018 11:23 EST by Rowan Rodriguez RN Height and Weight, Clinical Dosing Height Source : Stated Height Entry Format : Dyer Height, Feet : 5 ft(Converted to: 152 cm, 60 Inch) Height, Inches : 4 Inch(Converted to: 0 ft 4 Inch, 10.16 cm) Clinical Height : 162.56 cm Weight Source : Standing scale Weight Entry Format : Dyer Clinical Dosing Weight : 84.09 kg Weight, Pounds : 185 lb Body Surface Area (BSA) : 1.89 m2 Body Mass Index : 31.8 kg/m2 (HI) [place] Body Weight : 54 kg Rowan Rodriguez RN - 09/25/2018 11:23 EST Health Histories Smoking Status : Former smoker, quit more than 30 days ago Smokeless Tobacco Status : Never Rowan Rodriguez RN - 09/25/2018 11:23 EST Social History (As Of: 09/25/2018 11:29:03 EST) Tobacco: Smoker, current status unknown Smoking Status. Last Used: quit . (Last Updated: 09/25/2018 11:23:47 EST by Rowan Rodriguez, RN) Alcohol: Alcohol Use History Yes. Alcohol Use Frequency Rarely. (Last Updated: 09/25/2018 11:23:53 EST by Rowan Rodriguez, RN) Substance Abuse: Drug Use Hx: No. (Last Updated: 09/25/2018 11:23:57 EST by Rowan Rodriguez, KEVIN) Infectious Disease History Infectious Disease History : Chicken pox/Shingles, Measles, Mumps, Scarlet fever Fever/Chills Last 48 Hours : No Travel To Regions with Travel Advisories : No Travel Outside [place] Within Last 30 Days : No Contact With Traveler to Advisory Region : No Tuberculosis Symptoms : None Rowan Rodriguez RN - 09/25/2018 11:23 EST Anesthesia/Transfusion History Family History of Anesthesia Reaction : Prior transfusion without reaction Blood Transfusion Acceptable to Patient : Yes Transfusion History : Prior anesthesia without reaction Family History of Anesthesia Reaction : None Rowan Rodriguez RN - 09/25/2018 11:23 EST Functional Assessment Living Situation : Home Patient Lives With : Alone Current Home Treatments : Blood glucose monitoring Rowan Rodriguez RN - 09/25/2018 11:23 EST Psychosocial History Currently in Unsafe Situation : No Tried to Harm Yourself in the Past? : No Thoughts of Harming/Killing Yourself : No Rowan Rodriguez RN - 09/25/2018 11:23 EST Advance Directive Patient has Advance Directive *Q : Yes, Advance Directive not with the patient Advance Directive Type : Living will Copy Advance Directive Verified/on Chart : No Rowan Rodriguez RN - 09/25/2018 11:23 EST Teaching/Learning Assessment Barriers To Learning : None evident Individuals Taught : Patient, Child Readiness to Learn : Explanation Learning Style Preferences Patient : Verbal explanation Learning Style Preferences Family : Verbal explanation Rowan Rodriguez RN - 09/25/2018 11:23 EST Education Topics, Periop Preadmission Perioperative Education [place] : Verbalizes understanding Infection Control : Verbalizes understanding IV's : Verbalizes understanding NPO Status/Directions : Verbalizes understanding Pain Management : Verbalizes understanding Preprocedure Preparations : Verbalizes understanding Preprocedure Tests/Labs : Verbalizes understanding Rowan Rodrigeuz RN - 09/25/2018 11:23 EST General Info Arrived From : Home Mode of Arrival on Unit : Ambulatory Patient Arrival Date/Time : 09/25/2018 11:05 EST Legal Guardian : Daughter Support Person/Pt Rep Name : Amanda Bhavin dtr Lynne Bennie dtr Support Person/Pt Rep Contact Information : [phone] Want Family/Rep/Phys Notified of Admit : No Emergency Contact #1 : Amandabg Delcid Emergency Contact #1 Emergency Contact #1 Relationship : daughter Emergency Contact #2 : Lynne Avery Emergency Contact #2 Emergency Contact #2 Relationship : daughter Information Obtained From : Patient Primary Language : German Preferred Communication Mode : Verbal Communication Barrier : None Rowan Rodriguez RN - 09/25/2018 11:23 EST Vital Measurements Temperature Source : Temporal artery scanning Temperature Mode : Fahrenheit Temperature, Fahrenheit : 98.3 Deg F Clinical Temperature, C : 36.8 Deg C Peripheral Pulse Rate : 71 bpm Systolic Blood Pressure : 202 mmHg (HI) Diastolic Blood Pressure : 98 mmHg (HI) Oxygen Saturation : 99 % Oxygen Therapy Mode : Room air Rowan Rodriguez RN - 09/25/2018 11:23 EST Sleep Apnea Risk Assmt Hx of Obstructive Sleep Apnea Diagnosis : Yes BiPAP/CPAP Ordered for Home Use : No Rowan Rodriguez RN - 09/25/2018 11:23 EST Pardeep Scale Pardeep Sensory Perception : No impairment Pardeep Moisture : Rarely moist Pardeep Activity : Walks frequently Pardeep Mobility : No limitation Pardeep Nutrition : Excellent Pardeep Friction and Shear : No apparent problem Pardeep Score : 23 Rowan Rodriguez RN - 09/25/2018 11:23 EST Pain Assessment Pain Assessment : Initial assessment Pain Scale Used : 0-10 Scale Rowan Rodriguez RN - 09/25/2018 11:23 EST Fall Risk Scales ABCs Fall Injury Risk Identification : Coagulation ABC Fall Injury Risk : Moderate to high injury risk HOLM Hx Falls Immediate/Within 3 Months : No [place]m Secondary Diagnosis : No HOLM Use of Ambulatory Aid : None HOLM IV Therapy or IV Access : Yes [place] Gait/Transferring : Normal, bedrest, immobile Holm Mental Status : Oriented to own ability [place]m Fall Risk Score : 20 HOLM Fall Scale Risk Level : 0-24 Low Risk [place] Fall Interventions : Adequate lighting, Bed in low position, Call device within reach, Hourly comfort/safety rounds, Non-slip footwear, Personal items within reach, Room free of clutter/spills, Upper side-rails up, Wheels locked, Wires/Cords secured Rowan Rodriguez RN - 09/25/2018 11:23 EST Valuables and Belongings Valuables and Belongings : Clothing, Jewelry, Personal devices, Personal items Clothing : Common streetwear Clothing Disposition : Bedside, With family, Declines to send to security/safe Personal Device Disposition : With family, Declines to send to security/safe Jewelry : Earrings, Necklace Jewelry Disposition : With patient, Declines to send to security/safe Personal Devices : Glasses Personal Items : Cell phone, Purse Personal Items Disposition : With family, Declines to send to security/safe Rowan Rodriguez RN - 09/25/2018 11:23 EST Pain Scale Intensity : 0 Rowan Rodriguez RN - 09/25/2018 11:23 EST Image 4 - Images currently included in the form version of this document have not been included in the text rendition version of the form. documented in this encounter Plan of Treatment Not on file documented as of this encounter Visit Diagnoses Not on filedocumented in this encounter Care Teams Design Assistant Relationship Specialty Start Date End Date Cortez Kuo [address] [place] [id number] PCP - General 07/11/22 documented as of this encounter
--- OUTSIDE RECORDS SUMMARY | 2025-05-07 05:52 | XMS_ITS | Encounter Summary ---
Author Organization [facility] [facility] ([place], [place], [place], [place]) Address [address] [place] [address] Care Team Providers Care Shaker Tender Name Role Phone Cortez Kuo Primary Care Provider [phone] Reason for Visit * Reason Comments Medication Refill Encounter Details Date Type Department Care Team (Late st Contact Info) Description 10/05/2023 Refill [facility] Cardiology [address] [place] [address] Jeison Donis APRN [address] [facility] [address] [place] [address] Social History Tobacco Use Types Packs/Day Years [...] De Jesus rded Speak language other than Panamanian at home Not on file 09/07/2023 Want [...] on filedocumented in this encounter Care Teams Shaker Tender Relationship Specialty Start Date End Date Cortez Kuo [address] [place] [address] PCP - General 07/11/22 documented as of this encounter
--- OUTSIDE RECORDS SUMMARY | 2025-05-07 05:52 | XMS_ITS | Encounter Summary ---
Author Organization [employer] ([place], [place], [place], [place]) Address [address] [place] [address] Care Team Providers Care Food And Beverage Operations Manager Name Role Phone Cortez Kothari Primary Care Provider [phone] Encounter Details Date Type Department Care Team (Late st Contact Info) Description 09/25/2018 Transcribed Document [facility] [place] [address] [place] [address] ProviderEmelia MD [address] [place] [address] Social History Tobacco Use Types Packs/Day Years Used Date Smoking Tobacco: Never Assessed Comments Unknown Sex and Gender Information Value Date Recorded Sex Assigned at Not on file Legal Sex Female 5:22 PM CDT Gender Identity Not on file Sexual Orientation Not on file documented as of this encounter Miscellaneous Notes * Cerner Conversion Note - Emelia Contreras MD - 09/25/2018 7:43 PM [employer] [address] , [place] [address] Patient Copy Patient Information: Name: HANNAH ADAME Current Date: 09/25/2018 19:43:01 : 1935 Patient Address: [facility] [address] [place] [address] Patient Attending Physician: LOBO KELLY MD-CAR Primary Care Provider: CORTEZ KOTHARI MD-TUNG Primary Care Provider Discharge Diagnosis: Weight on Admission: 185 lb, 0 oz Comment: Follow-up Instructions: With: Address: When: MARCELLE SHAW [address] [facility] [place] [address] Business (1) 9:15 AM With: Address: When: LOBO KELLY [address] [facility], [address], [place] [place] [id number] Business (1) Within 6 months Discharge Instructions: Diet after Discharge: Resume usual [...] 5 Milligram(s) Oral Two Times A Day. Patient Instructions: Restart on 09/26/18 aspirin 81 Milligram(s) Oral Every Day. bisoprolol 5 Milligram(s) Oral Two Times A Day. cholecalciferol (Vitamin D3) 5,000 International Units Oral Every Day. furosemide (furosemide 40 mg oral tablet) 1 Tablet(s) Oral Every Day. Patient Instructions: Medication has been increased. Start 09/26/18 at 9 am. [facility] isosorbide mononitrate (isosorbide mononitrate 30 mg oral tablet, extended release) 1 Tablet(s) Oral Every Day. Patient Instructions: New medication. Start 09/26/18 at 9am. Prescription sent to [facility] levothyroxine (Synthroid) 88 Microgram(s) Oral Every Day. lisinopril 30 Milligram(s) Oral Every Day. Patient Instructions: Restart on 09/26/18 magnesium glycinate 120 Milligram(s) Oral At Bedtime. [...] 03/01/2006 Document Revised: 01/18/2017 Document Reviewed: 01/14/2014 [employer]it Interactive Patient Education ? 2017 Marco Vasco. Radial Site Care Introduction Refer to this [...] Revised: 01/18/2017 Document Reviewed: 03/01/2015 ? 2017 Elsevier Moderate Conscious Sedation, Adult, Care After These [...] you are awake and alert. ??? Take tfly-aks-rlzfgxa and prescription medicines only as told by [...] 06/03/2014 Document Revised: 01/15/2017 Document Reviewed: 12/02/2016 rubberit Interactive Patient Education ? 2017 [employer]. Medication Leaflets: isosorbide mononitrate (EYE renee SOR bide MON oh ROBERTA trate) Imdur, Monoket What is the most important information I [...] may report side effects to FDA at 0-577-NAQ-5740. What other drugs will affect isosorbide mononitrate? [...] interact with isosorbide mononitrate, including prescription and ppwy-wrw-lvpvidl medicines, vitamins, and herbal products. Not all [...] to ensure that the information provided by [employer]. ('[employer]') is accurate, up-to-date, and complete, but no guarantee is made to that effect. Drug information contained herein may be time sensitive. [employer] information has been compiled for use by healthcare practitioners and consumers in the [place] and therefore [employer] does not warrant that uses outside of the [place] are appropriate, unless specifically indicated otherwise. [employer]s drug information does not endorse drugs, diagnose patients or recommend therapy. [employer] drug information is an informational resource designed [...] effective or appropriate for any given patient. [employer] does not assume any responsibility for any aspect of healthcare administered with the aid of information [employer] provides. The information contained herein is not intended to cover all possible uses, directions, precautions, warnings, drug interactions, allergic reactions, or adverse effects. If you have questions about the drugs you are taking, check with your doctor, nurse or pharmacist. Copyright 1060-9579 [employer]. Version: 13.01. Revision Date: 11/02/2016. CIGARETTE SMOKING: The facts are clear, cigarette smoking will shorten your life. Smoking can cause many illnesses along the way. As a healthcare provider, we recommend that you stop smoking. Assistance with quitting is available by contacting 9-419-LEUC-NOW. This is a free resource providing counseling, [...] Be sure to sign up for the [employer] patient portal, which gives you 24/7 access to your medical information ??? including these discharge instructions ??? using your computer, smartphone, or tablet. Just go to [email or web address] to get started. Questions? Call . [facility] would like to thank you for allowing us to assist you with your healthcare needs. IMEGHA KATHLEEN BRUCE, (or applications sales representative) have received the above patient education materials/instructions and have verbalized understanding: Patient Signature _ Date/Time Patient Supervisor [place] Signature (if needed) Date/Time Clinician/Hospital Supervisor Lathing Signature (if needed) Date/Time documented in this encounter Plan of Treatment Not on file documented as of this encounter Visit Diagnoses Not on filedocumented in this encounter Care Teams Food And Beverage Operations Manager Relationship Specialty Start Date End Date Cortez Kothari [address] [place] [phone] PCP - General 07/11/22 documented as of this encounter
--- OUTSIDE RECORDS SUMMARY | 2025-05-07 05:52 | XMS_ITS | Encounter Summary ---
Author Organization [employer] ([place], [place], [place], [place]) Address [address] [place] [address] Care Team Providers Care Merchandising Director Name Role Phone Cortez Kuo Primary Care Provider [phone] Encounter Details Date Type Department Care Team (Late st Contact Info) Description 09/25/2018 Transcribed Document [facility] [place] [address] [place] [address] ProviderEmelia MD [address] [place], [place] [address] Social History Tobacco Use Types Packs/Day Years Used Date Smoking Tobacco: Never Assessed Comments Unknown Sex and Gender Information Value Date Recorded Sex Assigned at Not on file Legal Sex Female 5:22 PM CDT Gender Identity Not on file Sexual Orientation Not on file documented as of this encounter Miscellaneous Notes * Cerner Conversion Note - Emelia Contreras MD - 09/25/2018 3:19 PM PORTABLE CANTEEN OPERATOR Discharge Instructions Entered On: 09/25/2018 15:20 EST Performed On: 09/25/2018 15:19 EST by Rowan Rodriguez RN DC Instructions HWD Stroke/TIA Discharge Ins : N/A Heart Failure Discharge Ins : N/A Warfarin Discharge Ins : N/A Diet After Discharge : Resume usual diet as tolerated Activity After Discharge : Rest and relax today, No strenuous activities, Other: see post radial sheet for activity restriction Driving After Discharge : Do not drive, Other: for 24 hours Showering/Bathing : Other: May shower in 24 hours. No tub bathng, soaking, or swimming for 3-5 days Wound/Incision Care After Discharge : Keep operative site/wound site clean and dry, Other: Remove dressing in 24 hours Special Instructions : Monitor site for bleeding. If bleeding occurs, apply manual pressure and call 911 Rowan Rodriguez RN - 09/25/2018 15:19 EST Electronically signed by [facility] Conversion Contractor General Engineering Cerner at 12/12/2022 10:06 AM CDT documented in this encounter Plan of Treatment Not on file documented as of this encounter Visit Diagnoses Not on filedocumented in this encounter Care Teams Merchandising Director Relationship Specialty Start Date End Date Cortez Kuo [address] [place] [address] PCP - General 07/11/22 documented as of this encounter
--- OUTSIDE RECORDS SUMMARY | 2025-05-07 05:52 | XMS_ITS | Encounter Summary ---
Author Organization [employer] ([place], [place], [place], [place]) Address [address] [place] [address] Care Team Providers Care Territory Development Manager Name Role Phone Cortez Kuo Primary Care Provider [phone] Reason for Visit * Reason Comments Medication Refill Encounter Details Date Type Department Care Team (Late st Contact Info) Description 12/09/2023 Refill [facility] Cardiology [address] [place] [address] Jeison Donis APRN [address] [facility] [address] [place] [address] Primary hypertension Social History Tobacco Use Types [...] De Jesus rded Speak language other than Malaysian at home Not on file 09/07/2023 Want [...] hypertension documented in this encounter Care Teams Territory Development Manager Relationship Specialty Start Date End Date Cortez Kuo [address] [place] [id number] PCP - General 07/11/22 documented as of this encounter
--- OUTSIDE RECORDS SUMMARY | 2025-05-07 05:52 | XMS_ITS | Encounter Summary ---
Author Organization [employer] ([place], [place], [place], [place]) Address [address] [place] [address] Care Team Providers Care Bale Coverer Name Role Phone Cortez Kuo Primary Care Provider [phone] Reason for Visit * Reason Comments Medication Refill Encounter Details Date Type Department Care Team (Late st Contact Info) Description 10/09/2022 Refill [facility] Cardiology [address] [place] [address] Jeison Donis APRN [address] [facility] [address] [place], [place] [id number] Primary hypertension (Primary Dx) Social History Tobacco Use Types Packs/Day Years Used Date Smoking Tobacco: Former Smokeless Tobacco: Never Alcohol Use Standard Drinks/Week Comments Not Currently 0 (1 standard drink = 0.6 oz pur e alcohol) Comments Unknown Sex and Gender Information Value Date Recorded Sex Assigned at Not on file Legal Sex Female 5:22 PM CDT Gender Identity Not on file Sexual Orientation Not on file documented as of this encounter Plan of Treatment Not on file documented as of this encounter Visit Diagnoses Diagnosis Primary hypertension- Primary Unspecified essential hypertension documented in this encounter Care Teams Bale Coverer Relationship Specialty Start Date End Date Cortez Kuo [address] [place] [id number] PCP - General 07/11/22 documented as of this encounter
--- OUTSIDE RECORDS SUMMARY | 2025-05-07 05:52 | XMS_ITS | Encounter Summary ---
Author Organization [employer] ([place], [place], [place], [place]) Address [address] [place] [address] Care Team Providers Care Survey Data Technician Name Role Phone Cortez Kuo Primary Care Provider [phone] Reason for Visit * Reason Comments Medication Refill Encounter Details Date Type Department Care Team (Late st Contact Info) Description 01/09/2024 Refill [facility] Cardiology [address] [place] [address] Jeison Donis APRN [address] [facility] [address] [place] [address] Primary hypertension Social History Tobacco Use Types [...] De Jesus rded Speak language other than Bolivian at home Not on file 09/07/2023 Want [...] hypertension documented in this encounter Care Teams Survey Data Technician Relationship Specialty Start Date End Date Cortez Kuo [address] [place] [id number] PCP - General 07/11/22 documented as of this encounter
--- OUTSIDE RECORDS SUMMARY | 2025-05-07 05:52 | XMS_ITS | Encounter Summary ---
Author Organization [employer] ([place], [place], [place], [place]) Address [address] [place] [address] Care Team Providers Care Cutting And Boning Supervisor Name Role Phone Cortez Kuo Primary Care Provider [phone] Reason for Visit * Reason Comments Medication Refill Encounter Details Date Type Department Care Team (Late st Contact Info) Description 06/02/2023 Refill [facility] Cardiology [address] [place] [address] Jeison Donis APRN [address] [facility] [address] [place] [address] Primary hypertension Social History Tobacco Use Types [...] hypertension documented in this encounter Care Teams Cutting And Boning Supervisor Relationship Specialty Start Date End Date Cortez Kuo [address] [place] [address] PCP - General 07/11/22 documented as of this encounter
--- OUTSIDE RECORDS SUMMARY | 2025-05-07 05:52 | XMS_ITS | Encounter Summary ---
Author Organization [employer] ([place], [place], [place], [place]) Address [address] [place] [address] Care Team Providers Care Assistant Producer Name Role Phone Cortez Kothari Primary Care Provider [phone] Encounter Details Date Type Department Care Team (Late st Contact Info) Description 09/25/2018 Transcribed Document [facility] [facility] [address] [place] [address] ProviderEmelia MD [address] [place] [address] Social History Tobacco Use Types Packs/Day Years Used Date Smoking Tobacco: Never Assessed Comments Unknown Sex and Gender Information Value Date Recorded Sex Assigned at Not on file Legal Sex Female 5:22 PM CDT Gender Identity Not on file Sexual Orientation Not on file documented as of this encounter Miscellaneous Notes * Cerner Conversion Note - Emelia Contreras MD - 09/25/2018 3:21 PM MANAGER SOCIAL [address] , [place] [address] Patient Copy Patient Information: Name: DORIAN ADAME Current Date: 09/25/2018 15:21:12 : 1935 Patient Address: [facility] [address] [address] Patient Attending Physician: LOBO KELLY MD-CAR Primary [...] 03/01/2006 Document Revised: 01/18/2017 Document Reviewed: 01/14/2014 [employer] Interactive Patient Education ? 2017 Elsevier Inc. [...] you are awake and alert. ??? Take [id number] and prescription medicines only as told by [...] 06/03/2014 Document Revised: 01/15/2017 Document Reviewed: 12/02/2016 Elsevier Interactive Patient Education ? 2017 [employer] CIGARETTE SMOKING: The facts are clear, cigarette smoking will shorten your life. Smoking can cause many illnesses along the way. As a healthcare provider, we recommend that you stop smoking. Assistance with quitting is available by contacting 6-167-AIXW-NOW. This is a free resource providing counseling, [...] Be sure to sign up for the [facility] patient portal, which gives you 19/03 access to your medical information ??? including these discharge instructions ??? using your computer, smartphone, or tablet. Just go to [employer] to get started. Questions? Call . [facility] would like to thank you for allowing us to assist you with your healthcare needs. IMEGHA KATHLEEN BRUCE, (or retail wireless sales representative) have received the above patient education materials/instructions and have verbalized understanding: Patient Signature _ Date/Time Patient Manual Arts Therapist Signature (if needed) Date/Time Clinician/Hospital Manual Arts Therapist Signature (if needed) Date/Time Electronically signed by Katrin Martinez Conversion Cleaning Validation Consultant Cerner at 12/12/2022 9:56 AM CDT documented in this encounter Plan of Treatment Not on file documented as of this encounter Visit Diagnoses Not on filedocumented in this encounter Care Teams Assistant Producer Relationship Specialty Start Date End Date Cortez Kothari [address] [place] [address] PCP - General 07/11/22 documented as of this encounter
--- OUTSIDE RECORDS SUMMARY | 2025-05-07 05:52 | XMS_ITS | Clinical Summary ---
Author Organization [email or web address] ([place], [place], [place], [place]) Address [address] [place] [address] Care Team Providers Care Drier Take Off Tender Name Role Phone Ayaan Cortez Primary Care Provider [phone] Allergies Active Allergy Reactions Criticality Noted Date Comments Bee Venom Protein (Honey Bee) Other (See Comments) Low 10/05/2022 Other reaction(s): Unknown allergy reaction Other reaction(s): Unknown allergy reaction Fentanyl Low 07/11/2022 Other reaction(s): makes crazy Other reaction(s): Other - please document in the comment field Other reaction(s): makes crazy Meperidine Low 01/06/2010 Other reaction(s): Not available, Unknown allergy reaction Other reaction(s): Other - please document in the comment field Other reaction(s): Not available, Unknown allergy reaction Methylprednisolone Hives High 12/11/2022 Other reaction(s): Hives Other reaction(s): Hives Penicillin 07/11/2022 Penicillins Hives High 01/06/2010 Other reaction(s): Not available, Unknown allergy reaction Other reaction(s): Other - please document in the comment field Other reaction(s): Not available, Unknown allergy reaction Steroids 10/05/2022 Sulfa (Sulfonamide Antibiotics) Low 01/06/2010 Other reaction(s): Not available Other reaction(s): Other - please document in the comment field Other reaction(s): Not available Medications nitrofurantoin, macrocrystal-mono hydrate, (MACROBID) 100 MG capsule Take 100 mg by mouth. 2 Active magnesium malate, chelate 125 mg magnesium Cap Take 120 mg by mouth daily. Active ALPRAZolam (XANAX) 0.5 MG tablet Take 1 tablet (0.5 mg total) by mouth every night as needed for anxiety. Active glimepiride (AMARYL) 2 MG tablet Take 1 tablet (2 mg total) by mouth 2 (two) times daily. 3 Active cholecalciferol, vitamin D3, 50 mcg (2,000 unit) cap Take 1 capsule (2,000 Units total) by mouth daily. Active bisoprolol (ZEBETA) 5 MG tabletIndications :Primary hypertension Take 2.5 tablets (12.5 mg total) by mouth daily Pt taking one and a half (7.5 mg) in morning, and one (5 mg) in the evening. 12.5 Total.. 225 tablet 3 5 Active apixaban (Eliquis) 5 mg tab tabletIndications :A-fib (HCC) Take 1 tablet (5 mg total) by mouth 2 (two) times daily. 180 tablet 3 5 Active lisinopriL (ZESTRIL) 20 MG tablet Take 1 tablet (20 mg total) by mouth 2 (two) times daily. 180 tablet 3 5 Active spironolactone (ALDACTONE) 25 MG tabletIndications :CHF (congestive heart failure) (HCC) Take 1 tablet (25 mg total) by mouth daily. 90 tablet 3 5 Active torsemide (DEMADEX) 10 MG tabletIndications :CHF (congestive heart failure) (HCC) Take 1 tablet (10 mg total) by mouth daily. 90 tablet 3 5 Active potassium chloride (KLOR-CON) 10 MEQ CR tablet Take 1 tablet (10 mEq total) by mouth daily. 30 tablet 5 Active Active Problems Problem Noted Date Diagnosed Date Encounter for adjustment or management of cardia c device 09/18/2024 Cardiac pacemaker in situ 05/28/2023 Chronic diastolic congestive heart failure 10/05 Hypertension 10/05/2022 Acquired hypothyroidism 10/07/2021 12/21/19 Type 2 diabetes mellitus 05/10/2021 Permanent atrial fibrillation 05/10/2021 Overview (09/28/2022): AV node ablation and BiV PM in February 2015. EP also identified atrial tachycardias. Stroke prevention with Eliquis. 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 Blister of foot 05/28/2023 01/23/2024 Candidal vulvovaginitis 05/28/202312/26 COVID-19 05/28/2023 01/23/2024 Herpes zoster virus infectio n of face and ear nerves 05/28/2023 01/23/2024 History of appendectomy 05/28/202312/26 Hyperglycemia due to type 2 diabetes mellitus 05/28/20 23 01/23/2024 Hypertensive urgency 05/28/2023 024 Hyponatremia 05/28/2023 01/23/2024 Left foot pain 05/28/2023 01/23/2024 Maxillary sinusitis, acute 05/28/2023 0 01/23/2024 MRSA (methicillin resistant staph aureus) culture positive 05/28/2023 01/23/2024 Open wound of left foot 05/28/202312/26 Plantar wart of left foot 05/28/2023 Congestive heart failure 05/28/2023 HTN (hypertension) 05/28/2023 Pre-syncope 05/28/2023 01/23/2024 Atrial fibrillation 05/28/2023 01/23/20 24 Community acquired pneumonia 05/28/2023 01/23/2024 DM2 (diabetes mellitus, type 2) 05/28/2023 01/23/2024 H/O gastroesophageal reflux (GERD) 10/05/2022 01/23/2024 Artificial cardiac pacemaker 10/05/2022 01/23/2024 Pneumonia 10/05/2022 01/23/2024 H/O sinusitis 10/05/2022 01/23/2024 Diabetes 10/05/2022 01/23/2024 Chronic UTI 10/05/2022 01/23/2024 Anxiety 09/28/2022 01/23/2024 History of obstructive sleep apnea 09/28/2022 01/23/2024 Antibiotic-induced yeast infection 07/11/2022 01/23/2024 Acquired hypothyroidism 10/07/202112/26 Overview (09/28/2022): Last Assessment & Plan: Recent tsh is minimally elevated. I would not change the dose unless tsh were over 10 Uncontrolled type 2 diabetes mellitus with hyperglycemia 10/07/2021 01/23/2024 Overview (09/28/2022): Last Assessment & Plan: a1c at goal of 7.0 No changes are needed.. Abnormal electrocardiography 05/10/2021 01/23/2024 Chest pain 05/10/2021 01/23/2024 Diastolic heart failure 05/10/202112/26 Overview (09/28/2022): EF 55% with grade 3 diastolic dysfunction on echocardiogram October 2016. Fatigue 05/10/2021 01/23/2024 Hypertension 05/10/2021 01/23/2024 Shortness of breath 05/10/2021 01/23/20 24 Paroxysmal atrial fibrillation 05/10/2021 01/23/2024 Disorder of thyroid 05/10/2021 01/23/20 24 Dyspnea on exertion 04/29/2020 01/23/20 24 Recurrent urinary tract infection 10/20/2019 01/23/2024 Female genital prolapse 10/20/201912/26 Cramps of lower extremity 08/18/2019 Gallbladder pain 08/18/2019 01/23/2024 Swelling 08/18/2019 01/23/2024 Heartburn 08/18/2019 01/23/2024 Atrial paroxysmal tachycardia 07/29/2019 01/23/2024 Mitral valve insufficiency 07/29/2019 0 01/23/2024 Overview (09/28/2022): Regurgitation moderate by transesophageal echo October 2016. Encounters Date Type Department Care Team Description 03/30/2025 Orders Only [facility] Cardiology [address] [place] [phone] Kesha Villegas 03/30/2025 Orders Only [facility] Cardiology [address] [place] [phone] Kesha Villegas Potassium excess (Primary Dx); Primary hypertension 03/30/2025 Telephone [facility] Cardiology [address] [place] [address] Jeison Donis, ART Medication Management 03/20/2025 Refill [facility] Cardiology [address] [place] [address] Jeison Donis APRN 03/19/2025 4:00 PM EDT Clinical Support [facility] Electrophysiology [address] [place] [phone] Isaías Gilman MD Encounter for adjustment or management of cardiac device (Primary Dx); Left bundle branch block (LBBB); Permanent atrial fibrillation (HCC); Sick sinus syndrome (HCC); Chronic diastolic congestive heart failure (HCC); Cardiac pacemaker in situ 03/16/2025 Outside Orders [facility] Urology - [address] [place] [address] Dallas Valencia MD Female cystocele (Primary Dx); Dysuria 02/16/2025 5:00 AM EDT Clinical Support [facility] Electrophysiology [address] [place] [phone] Paolo Núñez MD Encounter for adjustment or management of cardiac device (Primary Dx); Left bundle branch block (LBBB); Permanent atrial fibrillation (HCC); Sick sinus syndrome (HCC); Chronic diastolic congestive heart failure (HCC); Cardiac pacemaker in situ from Last 3 Months Family History Medical History Relation Name Comments Aneurysm Other Relation Name Status Comments Other Social History Tobacco Use Types Packs/Day Years [...] De Jesus rded Speak language other than Tajik at home Not on file 09/07/2023 Want [...] Sign Reading Time Taken Comments Blood Pressure 130/80 10/21/2024 12:04 PM EST Pulse 70 12/21/2023 1:42 PM EDT Temperature 36.8 C (98.2 F) 07/11/2022 10:33 AM EST Respiratory Rate 18 07/11/2022 2:45 PM EST Oxygen Saturation 98% 07/11/2022 2:45 PM EST Inhaled Oxygen Concentration - - Weight 80.3 kg (177 lb) 10/21/2024 12:04 PM EST Height 162.6 cm (5' 4 ) 10/21/2024 12:04 PM EST Body Mass Index 30.38 10/21/2024 12:04 PM EST Plan of Treatment Health Maintenance Due Date Last Done Comments Medicare Initial AWV G0438 Diabetic Eye Exam 1945 Depression Screening (12+) 1948 Pneumococcal 50+ years (1 of 2 - PCV) 1955 Shingles Vaccine (Zoster) (1 of 2) 1986 Respiratory Syncytial Virus (RSV) Adult or (1 - 1-dose 75+ series) 2011 Hemoglobin A1C 09/28/2022 Falls Risk Screening 08/27/2024 COVID-19 VACCINE (5 - 2024-2 6 season) 2025 05/24/2022, 06/08/2021, 10/20/2020, Additional history exists Influenza Vaccine (#1) 2025 9, 05/27/2018, 05/23/2017 Tobacco Cessation Counseling and Screening (12+) 10/21/2025 10/21/2024 DTAP/TDAP/TD VACCINES (2 - T d or Tdap) 12/28/2026 12/28/2016 Medical Devices Implanted Type Area Edi Analyst Device Identifier Shelf Expiration Date Model / Serial / Lot Percepta Staff Midwife-P Mri [id number] - [id number] Implanted:Qty : 1 on 07/11/2022 at [facility] PACEMAKER/ICD CHAMBER DEVICE [employer]:CARD RHY:DISEASE MGT [id number] / / Description:DEPENDENT Pacemakers- Implanted: by Isaías Gilman MD (Quantity not on file) Pacemakers [employer] / [id number] S / Description:DEPENDENT Insurance [facility] MEDICARE ADVANTAGE Advance Directives For more information, please contact: [phone] Documents on File Type Date Recorded Patient Mate Relief Expl anation Advance Directives and Livin g Will 07/11/2022 9:43 AM * Full Code (Latest Code Status on File) Date Activated Date Inactivated Comments 07/11/2022 9:10 AM 08/05/2022 6:00 AM Care Teams Drier Take Off Tender Relationship Specialty Start Date End Date Cortez Kuo [address] [place] [address] PCP - General 07/11/22
--- OUTSIDE RECORDS SUMMARY | 2025-05-07 05:52 | XMS_ITS | Clinical Summary ---
Author Organization [facility] Address [address] [place] [address] Care Team Providers Care Tunnel Miner Name Role Phone Dallas Valencia MD Primary Care Provider [phone] Allergies Active Allergy Reactions Criticality Noted Date Comments Bee Venom Other - please document in the comment field Low 10/05/2022 Other reaction(s): Unknown allergy reaction Fentanyl Other - please document in the comment field Low 07/11/2022 Other reaction(s): makes crazy Meperidine Other - please document in the comment field Low 01/06/2010 Other reaction(s): Not available, Unknown allergy reaction Meperidine Hcl Other - please document in the comment field Low 01/06/2010 Methylprednisolone Hives Medium 12/11/2022 Other reaction(s): Hives Other Other - please document in the comment field Low 01/06/2010 Penicillins Hives,Other - please document in the comment field High 01/06/2010 Other reaction(s): Not available, Unknown allergy reaction Sulfa Drugs Other - please document in the comment field Low 01/06/2010 Other reaction(s): Not available Medications apixaban (Eliquis) 5 MG tablet Take 1 tablet (5 mg) by mouth 2 (two) times a day. Active BISOPROLOL FUMARATE PO Take 0.5 mg by mouth 2 (two) times a day. Active furosemide (Lasix) 20 MG tablet Take 1 tablet (20 mg) by mouth 1 (one) time each day. Active levothyroxine (Synthroid, Levoxyl) 88 MCG tablet Take 1 tablet (88 mcg) by mouth 1 (one) time each day before breakfast. Active nitrofurantoin, macrocrystal-mo nohydrate, (Macrobid) 100 MG capsule Take by mouth 2 (two) times a day. Active cholecalciferol (Vitamin D) 125 MCG (5000 UT) capsule Take 1 capsule (5,000 Units) by mouth 1 (one) time each day. Active lisinopril 20 MG tablet Take 1 tablet (20 mg) by mouth 1 (one) time each day. Active MAGNESIUM GLYCINATE PO Take 120 mg by mouth every night. Active ALPRAZolam (Xanax) 0.5 MG tablet Take 1 tablet (0.5 mg) by mouth at night if needed for anxiety (Pt. states she rarely takes medication). 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 I would not change the dose unless tsh were over 10 Last Assessment & Plan: Recent tsh is minimally elevated. I would not change the dose unless tsh were over 10 Abnormal electrocardiography 05/10/202105/2023 Diastolic heart failure 05/10/2021 06/05/20 23 Overview (06/05/2023): EF 55% with grade 3 diastolic dysfunction on echocardiogram October 2016. Permanent atrial fibrillation 05/10/2021 Overview (06/05/2023): AV node ablation and BiV PM in February 2015. EP also identified atrial tachycardias. Stroke prevention with Eliquis. Type 2 diabetes mellitus 05/10/2021 023 Left bundle branch block (LBBB) 04/29/2020 06/05/2023 Sick sinus syndrome 04/29/2020 06/05/2023 Female genital prolapse 10/20/2019 06/05/20 23 Recurrent urinary tract infection 10/20/2019 06/05/2023 Atrial paroxysmal tachycardia 07/29/2019 Mitral valve insufficiency 07/29/201906/05 Overview (06/05/2023): Regurgitation moderate by transesophageal echo October 2016. Family History Medical History Relation Name Comments Diabetes Other Heart disease Other Heart failure Other Hypertension Other Relation Name Status Comments Other Social History Tobacco Use Types Packs/Day Years Used Date Smoking Tobacco: Former Cigarettes Smokeless Tobacco: Never Alcohol Use Standard Drinks/Week Comments Not Currently 0 (1 standard drink = 0.6 oz pur e alcohol) Comments Unknown Sex and Gender Information Value Date Recorded Sex Assigned at Not on file Legal Sex Female 7:46 PM EDT Gender Identity Not on file Sexual Orientation Not on file Last Filed Vital Signs Vital Sign Reading Time Taken Comments Blood Pressure 161/93 06/05/2023 12:40 PM EDT Pulse 81 06/05/2023 12:40 PM EDT Temperature - - Respiratory Rate - - Oxygen Saturation - - Inhaled Oxygen Concentration - - Weight 80.6 kg (177 lb 11.1 oz) 023 12:33 PM EDT Height 162.6 cm (5' 4 ) 06/05/2023 12:3 3 PM EDT Body Mass Index 30.5 06/05/2023 12:33 PM EDT Plan of Treatment Health Maintenance Due Date Last Done Comments [facility]-Bone Density Scan 1936 [facility]-Depression Screening 1936 [facility]-Medicare Annual Wellness (AWV) 1936 [facility]-Infant/Child/Adol SDOH Screenings 1936 Diabetes: Dental Exam 1946 [facility]- SDOH Screenings 1954 [facility]-Adult SDOH Screenings 1954 [facility]-Pneumococcal Vaccine: 50+ Years (1 of 2 - PCV) 1955 [facility]-Zoster Vaccines (1 of 2) 1986 [facility]-RSV Vaccine: 60+ Years or (1 - 1-dose 75+ series) 2011 [facility]-Diabetes: Hemoglobin A1C 12/03/2023 06/05/2023 [id number] Vaccine ( season) 2025 05/24/2022, 06/08/2021, 10/20/2020, Additional history exists [facility]-Influenza Vaccine (#1) 04/27/202506/16, 05/27/2018, 05/23/2017 [facility]-DTaP,Tdap,and Td Vaccines (2 - Td or Tdap) 12/28/2026 12/28/2016 [facility]-Obesity Intervention Completed 06/05/2023 HPV Vaccines Aged Out No longer eligi ble based on patient's age to complete this topic [facility]-HIB Vaccines Aged Out No longer e ligible based on patient's age to complete this topic [facility]-Hepatitis A Vaccines Aged Out No longer eligible based on patient's age to complete this topic [facility]-IPV Vaccines Aged Out No longer e ligible based on patient's age to complete this topic [facility]-Rotavirus Vaccines Aged Out No lo nger eligible based on patient's age to complete this topic Procedures Procedure Name Priority Date/Time Associated Diagnosis Comments POCT GLYCOSYLATED HEMOGLOBIN (HGB A1C) Routine 06/05/2023 12:52 PM EDT Type 2 diabetes mellitus without complication, with long-term current use of insulin ([facility]) from Last 3 Months or Most Recently Relevant to Health Maintenance Results * POCT glycosylated hemoglobin (Hb A1C) (06/05/2023 12:52 PM EDT) POCT Hemoglobin A1C 7.0 <5.7% Non-Diabet ic [employer] [facility] Kit Lot Number [id number] [facility] Kit Expiration Date 01/2025 [facility] Blood Venous blood specimen / Unknown 06/05/2023 12:52 PM EDT Lynne DUMONT POINT OF CARE TEST EN TER/EDIT ORDERABLES Final Result [facility] [address] [place] [address] from Last 3 Months or Most Recently Relevant to Health Maintenance Insurance [facility] MEDIC[facility] Care Teams Tunnel Miner Relationship Specialty Start Date End Date Dallas Valencia MD [address] [place] [address] [address] [place] [address] PCP - General 06/06/21
--- OUTSIDE RECORDS SUMMARY | 2025-05-07 05:52 | XMS_ITS | Encounter Summary ---
Author Organization [employer] ([place], [place], [place], [place]) Address [address] [place] [address] Care Team Providers Care Last Code Striper Name Role Phone Cortez Kuo Primary Care Provider [phone] Reason for Visit * Reason Comments Medication Refill Encounter Details Date Type Department Care Team (Late st Contact Info) Description 01/16/2023 Refill [facility] Cardiology [address] [place] [address] Jeison Donis APRN [address] [facility] [address] [place], [place] [id number] Social History Tobacco Use Types Packs/Day Years [...] on filedocumented in this encounter Care Teams Last Code Striper Relationship Specialty Start Date End Date Cortez [place] [address] [place] [address] PCP - General 07/11/22 documented as of this encounter
--- OUTSIDE RECORDS SUMMARY | 2025-05-07 05:52 | XMS_ITS | Encounter Summary ---
Author Organization [employer] ([place], [place], [place], [place]) Address [address] [place] [address] Care Team Providers Care Process Manufacturing Engineer Name Role Phone Cortez Kuo Primary Care Provider [phone] Encounter Details Date Type Department Care Team (Late st Contact Info) Description 09/26/2018 Transcribed Document [facility] Pulm & Critical Care Medicine [address] [place] [address] [place] [address] Christina Gupta MD [address] [facility] [address] [place] [address] Social History Tobacco Use Types Packs/Day Years Used Date Smoking Tobacco: Never Assessed Comments Unknown Sex and Gender Information Value Date Recorded Sex Assigned at Not on file Legal Sex Female 5:22 PM CDT Gender Identity Not on file Sexual Orientation Not on file documented as of this encounter Miscellaneous Notes * Cerner Conversion Note - Christina Gupta MD - 09/26/2018 9:06 AM EST DATE OF STUDY: 09/25/2018 REFERRING PHYSICIAN: Dr. Munoz. IDENTIFICATION: Gender: Female. Age: 83. Race: . Height: 64 inches. Weight: 185 pounds. Body mass index: 31.65. TEST COMMENTS: Spirometry data is acceptable and reproducible according to ATS criteria. Flow volume loops are acceptable with narrowing, hinting of restrictive abnormality. Exhalation time is more than 6 seconds. SPIROMETRY: 1. FVC 2.05 L, 81% predicted. 2. FEV1 1.58 L, 84% predicted. 3. FEV1/FVC percentage predicted 77. Diffusion lung capacity was 66% predicted and corrected to alveolar volume was 132% of predicted. IMPRESSION: 1. Normal spirometry. 2. Moderate reduction in diffusion lung capacity, but when corrected to alveolar volume, was increased. Clinical correlation is indicated for obesity versus hyperreactive airway disease. Christnia Gupta M.D. Dict: 09/26/2018 08:06:12 Trans: 09/26/2018 09:22:16 CC1: Christina Gupta M.D. documented in this encounter Plan of Treatment Not on file documented as of this encounter Visit Diagnoses Not on filedocumented in this encounter Care Teams Process Manufacturing Engineer Relationship Specialty Start Date End Date Cortez Kuo [address] [place] [id number] PCP - General 07/11/22 documented as of this encounter
--- OUTSIDE RECORDS SUMMARY | 2025-05-07 05:53 | XMS_ITS | Patient Health Record ---
Author Organization [facility] Address [address] [place] [id number] Care Team Providers Care Riverboat Master Name Role Phone Zbigniew Kuo Primary Care Provider [phone] Allergies Allergen (clinical drug ingredient) Drug/Non Drug Allergy documented on EMR Reaction Allergy Type Onset Date Status Penicillin rash and throat closes up Drug Allergy Active Reason For Referral No Information Medications Medication SIG (Take, Route, Frequency, Duration) Notes Start Date End Date Status Farxiga 10 MG 1 tablet Orally Once a day; Duration: 30 day(s) 03/29/2023 Active Lisinopril 20 MG TAKE 1 TABLET BY MOUTH TWICE DAILY; Duration: 90 Active Clindamycin HCl 300 MG 1 cap(s) orally every 6 hours; Duration: 7 day(s) 10/23/2022 Not-Taking Synthroid 75 MCG 1 TAB(S) ONCE A DAY ORALLY 30 Active Potassium Chloride ER 10 MEQ 1 tab(s) orally once daily Active Glimepiride 2 MG 1 tab(s) Orally Two times a day 03/22/2023 Active Eliquis 5 MG 1 tab(s) orally bid Active Vitamin D3 125 MCG (5000 UT) 1 cap(s) orally once a day 03/04/2015 Active amLODIPine Besylate 5 MG 1 tab(s) orally once a day; Duration: 30 day(s) Not-Taking Magnesium 400MG 1 TABLET ONCE DAILY Active ALBUTEROL HFA INHALER 200 METERED DOSES/ 8.5GM 2 INHALATIONS QID AND Q2H PRN *Please review for potential replacement for e-prescription and drug interaction check* 10/04/2020 Not-Taking Loratadine 10 MG 1 tab(s) orally once a day Active Famciclovir 500 MG 1 tablet Orally Three times a day 03/08/2023 Not-Taking Xanax 0.5 MG 1 tab(s) orally qhs Active traMADol HCl 50 MG 1 tablet as needed Orally q4h prn pain 03/08/2023 Not-Taking hydroCHLOROthiazide 25 MG 1 tablet in the morning Orally Once a day; Duration: 30 day(s) Active SM Clotrimazole Vaginal 1 % 1 appful topicall Two times a day Active Bisoprolol Fumarate 5 MG 1 tab(s) orally bid Active Furosemide 20 MG TAKE 2 TABLETS BY MOUTH EVERY DAY Not-Taking Immunizations Vaccine Route Administration Date Status Comme nts Tetanus Tdap-Adacel (over 7yrs) IM Intramuscular 12/28/2016 Administered Fluzone High Dose (65yr and older) IM Intramuscular 05/19/2016 Administered Fluzone High Dose (65yr and older) IM Intramuscular 05/23/2017 Administered Fluzone High Dose (65yr and older) IM Intramuscular 05/27/2018 Administered Fluzone High Dose (65yr and older) IM Intramuscular 06/16/2019 Administered COVID 19 Moderna Unknown 10/20/2020 Administered COVID 19 Moderna Unknown 06/08/2021 Administered Problems Problem Type SNOMED Code ICD Code Onset Dates Problem Status W/U Status Risk Notes Problem Diabetes mellitus type II (99723346) Diabetes mellitus type II (250.00) Active confirmed Problem Disorder of cardiovascular system (12336738) ASCVD (429.2) Active confirmed Problem Hypertension (51166545) Hypertension NOS (401.9) Active confirmed Problem Essential hypertension (58296459) Essential (primary) hypertension (I10) Active confirmed Problem Sinusitis (49652627) Sinusitis (J32.9) Active confirmed Problem Essential hypertension (12647656) Essential hypertension (I10) Active confirmed Problem Anxiety (97955096) Anxiety (F41.9) Active confi rmed Problem Uterine prolapse (72386832) Uterine prolapse (N81.4) Active confirmed Problem Plantar wart of left foot (29498932291770711) Plantar wart of left foot (B07.0) Active confirmed Problem Viral syndrome (496422832) Viral syndrome (B34.9) Active confirmed Problem Arteriosclerotic vascular disease (58902765) Arteriosclerotic cardiovascular disease (I25.10) Active confirmed Problem Type II diabetes mellitus without complication (852297683) Type 2 diabetes mellitus without complication (E11.9) Active confirmed Problem Cardiac pacemaker in situ (737224729) Status cardiac pacemaker (Z95.0) Active confirmed Problem Acquired hypothyroidism (418364883) Acquired hypothyroidism (E03.9) Active confirmed Problem Cardiac pacemaker in situ (785211890) Pacemaker (Z95.0) Active confirmed Problem Iron deficiency anemia (43607588) Iron deficiency anemia, unspecified iron deficiency (D50.9) Active confirmed Problem Gastroesophageal reflux disease (021741871) Gastroesophageal reflux disease, esophagitis presence not specified (K21.9) Active confirmed Problem Iron deficiency anemia (99398602) Other iron deficiency anemia (D50.8) Active confirmed Problem Influenza A virus (015780366) Influenza A (J10.1) Active confirmed Problem Joint pain (41480553) Arthralgia, unspecified joint (M25.50) Active confirmed Problem Chronic sinusitis (00743045) Sinusitis, unspecified chronicity, unspecified location (J32.9) Active confirmed Problem Seasonal allergic rhinitis (724234252) Seasonal allergic rhinitis, unspecified allergic rhinitis trigger (J30.2) Active confirmed Problem Hypertensive urgency (426151435) Hypertensive urgency (I16.0) Active confirmed Problem Mixed incontinence (254664106) 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) Active confirmed Problem Candidal vulvovaginitis (70307771) Vulvovaginal candidiasis (B37.3) Active confirmed Problem Injury of left lower limb (disorder) (68811580120156807) Injury of left lower extremity, initial encounter (S89.92XA) Active confirmed Problem Traumatic AND/OR non-traumatic injury (177872574) Hematoma and contusion (T14.8XXA) Active confirmed Problem Abrasion of skin of left lower limb (disorder) (74605975641363) Abrasion of left lower extremity, initial encounter (S80.812A) Active confirmed Problem Heart failure (39859965) Congestive heart failure, unspecified HF chronicity, unspecified heart failure type (I50.9) Active confirmed Plan Of Treatment No Information Insurance Providers Payer Name Payer Address Payer Phone Subscriber Number Group Number Insured Name Patient Relationship to Insured Coverage Start Date Coverage End Date [employer] MED[employer]ARE [address] [address] [place], [place] [id number] Hannah Adame Self - patient is the insured Medical (General) History Medical History History ICD Code hypertension hyperthyroidism diabetes mellitus 2011 Afib CHF ventricular-tachycardia Diastolic CHF Mild to moderate mitral regurg Biventricular pacemaker Renal insufficiency 04/12/18 Echo EF=55%, mild to mod mitral regurg Positive Covid-May 2020 Surgical History Surgery Date(Month/Year) cholecystectomy 2002 pacemaker 2010 appendectomy 2002 pacemaker (new) 2014 heart cath 2014 renal cath 2014 AV node ablation 02/2015 sinus surgery, Dr. Dong Battery Replacement in Pacemaker 08/2022 Hospitalization History Reason Date(Month/Year) bee sting prancreatitis food poisioning A Fib 2010 [facility] with AV ablation a nd pacer update for recurrent at flutter and diastolic CHF; also pneumonia 03/02/15-03/06/15
--- OUTSIDE RECORDS SUMMARY | 2025-05-07 05:53 | XMS_ITS | Encounter Summary ---
Author Organization [employer] ([place], [place], [place], [place]) Address [address] [place] [address] Care Team Providers Care Incinerator Plant General Supervisor Name Role Phone Cortez Kuo Primary Care Provider [phone] Encounter Details Date Type Department Care Team (Late st Contact Info) Description 09/19/[address] [facility] Family Medicine [address] [place] [address] ProviderEmelia MD [address], [place] [address] Social History Tobacco Use Types Packs/Day Years Used Date Smoking Tobacco: Never Assessed Comments Unknown Sex and Gender Information Value Date Recorded Sex Assigned at Not on file Legal Sex Female 5:22 PM CDT Gender Identity Not on file Sexual Orientation Not on file documented as of this encounter Miscellaneous Notes * Cerner Conversion Note - Emelia Contreras MD - 09/19/2018 8:34 AM CAGE SHIFT MANAGER Event Note Entered On: 09/19/2018 8:37 EST Performed On: 09/19/2018 8:34 EST by DANAE JIMENEZ RN Event Note Description of Event : pt took her Eliquis this AM and Dr. Munoz has cancelled her case. He spoke with her and the daughter at the bedside and she will be rescheduled for next week. She was ordered to take the Plavix every day and to hold Eliquis starting today until after the heart cath. She verbalized understanding. DANAE JIMENEZ RN - 09/19/2018 8:34 EST Electronically signed by Juan [facility] Conversion Geotechnician Cerner at 12/12/2022 9:45 AM CDT documented in this encounter Plan of Treatment Not on file documented as of this encounter Visit Diagnoses Not on filedocumented in this encounter Care Teams Incinerator Plant General Supervisor Relationship Specialty Start Date End Date Cortez Kuo [address] [place] [address] PCP - General 07/11/22 documented as of this encounter
--- OUTSIDE RECORDS SUMMARY | 2025-05-07 05:53 | XMS_ITS | Encounter Summary ---
Author Organization [email or web address] ([place], [place], [place], [place]) Address [address] [place] [address] Care Team Providers Care Hot Packer Name Role Phone Cortez Kuo Primary Care Provider [phone] Encounter Details Date Type Department Care Team (Late st Contact Info) Description 09/04/2018 Transcribed Document [facility] Cardiology [address] [place] [address] [place] [address] [place] [address] [address] [place] [address] Social History Tobacco Use Types Packs/Day Years Used Date Smoking Tobacco: Never Assessed Comments Unknown Sex and Gender Information Value Date Recorded Sex Assigned at Not on file Legal Sex Female 5:22 PM CDT Gender Identity Not on file Sexual Orientation Not on file documented as of this encounter Miscellaneous Notes * Cerner Conversion Note - Carlton Munoz MD - 09/04/2018 1:18 PM EST DATE OF STUDY: 09/03/2018 LEXISCAN MYOCARDIAL PERFUSION IMAGING PRIMARY CARE PHYSICIAN: Dr. Cortez Kuo. INDICATION: An 83-year-old female with an abnormal EKG. PROTOCOL: Low-dose, high-dose technetium-99m same-day protocol with Lexiscan. FINDINGS: 1. Stress images show a moderate sized area of moderately decreased uptake involving the anterior wall. 2. Rest images show a moderate sized area of mildly decreased uptake involving the anterior wall. 3. Gated SPECT images show LVEF of 68%. CONCLUSION: 1. Abnormal Lexiscan myocardial perfusion imaging showing mixed ischemia and scar in the anterior wall. 2. Normal LV systolic function. Carlton Munoz M.D. Dict: 09/04/2018 12:18:25 Trans: 09/04/2018 12:38:32 CC1: Carlton Munoz M.D. CC2: Cortez Kuo MD documented in this encounter Plan of Treatment Not on file documented as of this encounter Visit Diagnoses Not on filedocumented in this encounter Care Teams Hot Packer Relationship Specialty Start Date End Date Cortez Kuo [address] [place] [phone] PCP - General 07/11/22 documented as of this encounter
--- OUTSIDE RECORDS SUMMARY | 2025-05-07 05:53 | XMS_ITS | Encounter Summary ---
Author Organization [employer] ([place], [place], [place], [place]) Address [address] [place] [address] Care Team Providers Care Dice Table Person Name Role Phone Cortez Kuo Primary Care Provider Reason for Visit * Reason Onset Date Comments Medication Management 03/30/2025 Encounter Details Date Type Department Care Team (Late st Contact Info) Description 03/30/2025 Telephone [facility] Cardiology [address] [place] [address] Jeison Donis APRN [address] [facility] [address] [place] [id number] Medication Management Social History Tobacco Use Types Packs/Day Years [...] De Jesus rded Speak language other than Lebanese at home Not on file 09/07/2023 Want [...] as of this encounter Miscellaneous Notes * Telephone Encounter - Kesha Villegas - 03/30/2025 2:58 PM EDT Called patient and left detailed VM that we need her to get labs done to see how her potassium levels are. Also informed her that I sent in 30 day supply of potassium. Mailed lab slip. * Telephone Encounter - Jeison Donis APRN - 03/30/2025 2:04 PM EDT Please order a BMP. We will see what her potassium level is now and make a decision. If she is out she can give her 30-day supply until we get these lab results * Telephone Encounter - Hyun Silva - 03/30/2025 1:15 PM EDT Patient returning your call Patient states she just needs to know if she should continue to take the potassium or not if she needs to continue please call in refill to [facility] Patient states when you call back if she does not answer leave a VM that states yes or no about continuing medication * Telephone Encounter - Kesha Villegas - 03/30/2025 1:09 PM EDT Left VM. * Telephone Encounter - Rayna Gregg - 03/30/2025 12:46 PM EDT Patient requesting a call back to discuss the potassium. [phone] documented in this encounter Plan of Treatment Not on file documented as of this encounter Visit Diagnoses Not on filedocumented in this encounter Care Teams Dice Table Person Relationship Specialty Start Date End Date Cortez Kuo [address] [place] [address] PCP - General 07/11/22 documented as of this encounter
--- OUTSIDE RECORDS SUMMARY | 2025-05-07 05:53 | XMS_ITS | Referral Summary ---
Author Organization [employer] ([place], [place], [place], [place]) Address [address] [place] [address] Care Team Providers Care Sheepskin Pickler Name Role Phone Cortez Kuo Primary Care Provider [phone] Encounters Date Type Department Care Team Description 03/30/2025 Orders Only [facility] Cardiology [address] [place] [address] Kesha Villegas 03/30/2025 Orders Only [facility] Cardiology [address] [place] [address] Kesha Villegas Potassium excess (Primary Dx); Primary hypertension 03/30/2025 Telephone [facility] Cardiology [address] [place] [address] Jeison Donis APRN Medication Management 03/20/2025 Refill [facility] Cardiology [address] [place] [address] Jeison Donis APRN 03/19/2025 4:00 PM EDT Clinical Support [facility] Electrophysiology [address] [place] [address] Isaías Gilman MD Encounter for adjustment or management of cardiac device (Primary Dx); Left bundle branch block (LBBB); Permanent atrial fibrillation (HCC); Sick sinus syndrome (HCC); Chronic diastolic congestive heart failure (HCC); Cardiac pacemaker in situ 03/16/2025 Outside Orders [facility] Urology - [address] [place] [address] Dallas Valencia MD Female cystocele (Primary Dx); Dysuria 02/16/2025 5:00 AM EDT Clinical Support [facility] Electrophysiology [address] [place] [address] Paolo Núñez MD Encounter for adjustment or management of cardiac device (Primary Dx); Left bundle branch block (LBBB); Permanent atrial fibrillation (HCC); Sick sinus syndrome (HCC); Chronic diastolic congestive heart failure (HCC); Cardiac pacemaker in situ from Last 3 Months Allergies Active Allergy Reactions Criticality Noted Date [...] Regurgitation moderate by transesophageal echo October 2016. Social History Tobacco Use Types Packs/Day Years [...] De Jesus rded Speak language other than Dutch at home Not on file 09/07/2023 Want [...] 10/21/2024 12:04 PM EST Plan of Treatment Not on file Medical Devices Implanted Type Area Correctional Case Records Supervisor Device Identifier Shelf Expiration Date Model / Serial / Lot Percepta Discotheque Dancer-P Mri [id number] - [id number] Implanted:Qty : 1 on 07/11/2022 at [facility] PACEMAKER/ICD CHAMBER DEVICE [employer]:CARD RHY:DISEASE MGT [id number] / / Description:DEPENDENT Pacemakers- Implanted: by Isaías Gilman MD (Quantity not on file) Pacemakers [employer] / [id number] S / Description:DEPENDENT Insurance [facility] MEDICARE ADVANTAGE Advance Directives For more information, please contact: [phone] Documents on File Type Date Recorded Patient Embalmer/Funeral Director Expl anation Advance Directives and Livin g Will 07/11/2022 9:43 AM * Full Code (Latest Code Status on File) Date Activated Date Inactivated Comments 07/11/2022 9:10 AM 08/05/2022 6:00 AM Care Teams Sheepskin Pickler Relationship Specialty Start Date End Date Cortez Kuo [address] [place] [address] PCP - General 07/11/22
--- OUTSIDE RECORDS SUMMARY | 2025-05-07 05:53 | XMS_ITS | Encounter Summary ---
Author Organization [employer] ([place], [place], [place], [place]) Address [address] [place] [address] Care Team Providers Care Mechanical Service Representative Name Role Phone Cortez Kothari Primary Care Provider [phone] Encounter Details Date Type Department Care Team (Late st Contact Info) Description 09/25/2018 Transcribed Document [facility] [place] Family Medicine [address] [place] [address] ProviderEmelia MD [address] [place] [address] Social History Tobacco Use Types Packs/Day Years Used Date Smoking Tobacco: Never Assessed Comments Unknown Sex and Gender Information Value Date Recorded Sex Assigned at Not on file Legal Sex Female 5:22 PM CDT Gender Identity Not on file Sexual Orientation Not on file documented as of this encounter Miscellaneous Notes * Cerner Conversion Note - Emelia Contreras MD - 09/25/2018 4:09 PM [employer] [address] , [place] [address] Patient Copy Patient Information: Name: HANNAH ADAME Current Date: 09/25/2018 16:09:09 : 1935 Patient Address: [facility] [address] [address] Patient Attending Physician: LOBO KELLY MD-CAR Primary Care Provider: CORTEZ KOTHARI MD-TUNG Primary Care Provider Discharge Diagnosis: Weight on Admission: 185 lb, 0 oz Comment: Follow-up Instructions: With: Address: When: MARCELLE SHAW [address] [facility], [address] [place] [address] Business (1) 9:15 AM With: Address: When: LOBO KELLY [address] [facility] [facility], [address], [place] [address] [place] [id number] Business (1) Within 6 months Discharge Instructions: [...] 09/26/18 at 9 am. Prescription sent to [facility] isosorbide mononitrate (isosorbide mononitrate 30 mg oral tablet, extended release) 1 Tablet(s) Oral Every Day. Patient Instructions: New medication. Start 09/26/18 at 9am. Prescription sent to [facility] levothyroxine (Synthroid) 88 Microgram(s) Oral Every [...] 03/01/2006 Document Revised: 01/18/2017 Document Reviewed: 01/14/2014 [employer] Interactive Patient Education ? 2017 [employer]. Radial Site Care Introduction Refer to this [...] you are awake and alert. ??? Take jgso-xgb-mqjagql and prescription medicines only as told by [...] 06/03/2014 Document Revised: 01/15/2017 Document Reviewed: 12/02/2016 [employer] Interactive Patient Education ? 2017 [employer]. Medication Leaflets: isosorbide mononitrate (EYE renee [...] may report side effects to FDA at 7-871-NNC-8903. What other drugs will affect isosorbide mononitrate? [...] interact with isosorbide mononitrate, including prescription and kpvr-reu-sycyxrz medicines, vitamins, and herbal products. Not all [...] to ensure that the information provided by [employer]. ('[employer]') is accurate, up-to-date, and complete, but no guarantee is made to that effect. Drug information contained herein may be time sensitive. [employer] information has been compiled for use by healthcare practitioners and consumers in the [place] and therefore [employer] does not warrant that uses outside of the [place] are appropriate, unless specifically indicated otherwise. [employer] drug information does not endorse drugs, diagnose patients or recommend therapy. [employer] drug information is an informational resource designed [...] effective or appropriate for any given patient. [employer] does not assume any responsibility for any aspect of healthcare administered with the aid of information [employer] provides. The information contained herein is not intended to cover all possible uses, directions, precautions, warnings, drug interactions, allergic reactions, or adverse effects. If you have questions about the drugs you are taking, check with your doctor, nurse or pharmacist. Copyright 5700-2551 [employer]. Version: 13.01. Revision Date: 11/02/2016. CIGARETTE SMOKING: The facts are clear, cigarette smoking will shorten your life. Smoking can cause many illnesses along the way. As a healthcare provider, we recommend that you stop smoking. Assistance with quitting is available by contacting 0-451-ZESR-NOW. This is a free resource providing counseling, [...] Be sure to sign up for the [employer] patient portal, which gives you 24/7 access to your medical information ??? including these discharge instructions ??? using your computer, smartphone, or tablet. Just go to [employer] to get started. Questions? Call . [facility] would like to thank you for allowing us to assist you with your healthcare needs. IMEGHA KATHLEEN BRUCE, (or solar sales representative and assessor) have received the above patient education materials/instructions and have verbalized understanding: Patient Signature _ Date/Time Patient Offset Press Assistant Signature (if needed) Date/Time Clinician/Hospital Offset Press Assistant Signature (if needed) Date/Time Electronically signed by Juan, [facility] Conversion Performance Improvement Analyst Cerner at 12/12/2022 10:00 AM CDT documented in this encounter Plan of Treatment Not on file documented as of this encounter Visit Diagnoses Not on filedocumented in this encounter Care Teams Mechanical Service Representative Relationship Specialty Start Date End Date Cortez Kothari [address] [place] [phone] PCP - General 07/11/22 documented as of this encounter
--- OUTSIDE RECORDS SUMMARY | 2025-05-07 05:53 | XMS_ITS | Encounter Summary ---
Author Organization [employer] ([place], [place], [place], [place]) Address [address] [place] [address] Care Team Providers Care Senior Programmer Name Role Phone Cortez Kuo Primary Care Provider [phone] Reason for Visit * Reason Comments Medication Refill Encounter Details Date Type Department Care Team (Late st Contact Info) Description 03/20/2025 Refill [facility] Cardiology [address] [place] [address] Jeison Donis APRN [address] [facility] [address] [place] [address] Social History Tobacco Use Types Packs/Day Years [...] De Jesus rded Speak language other than [place] Citizen at home Not on file 09/07/2023 Want [...] on filedocumented in this encounter Care Teams Senior Programmer Relationship Specialty Start Date End Date Cortez Kuo [address] [place] [address] PCP - General 07/11/22 documented as of this encounter
--- OUTSIDE RECORDS SUMMARY | 2025-05-07 05:53 | XMS_ITS | Encounter Summary ---
Author Organization [employer] ([place], [place], [place], [place]) Address [address] [place] [address] Care Team Providers Care Tree Marker Name Role Phone Cortez Kuo Primary Care Provider [phone] Encounter Details Date Type Department Care Team (Late st Contact Info) Description 09/19/2018 Transcribed Document [facility] [place] Family Medicine [address] [place] [address] ProviderEmelia MD [address] [place] [address] Social History Tobacco Use Types Packs/Day Years Used Date Smoking Tobacco: Never Assessed Comments Unknown Sex and Gender Information Value Date Recorded Sex Assigned at Not on file Legal Sex Female 5:22 PM CDT Gender Identity Not on file Sexual Orientation Not on file documented as of this encounter Miscellaneous Notes * Cerner Conversion Note - Emelia Contreras MD - 09/19/2018 8:39 AM PORTRAIT CONSULTANT [address] , [place] [address] Patient Copy Patient Information: Name: DORIAN ADAME Current Date: 09/19/2018 08:39:15 : 1935 Patient Address: [facility] [address] [address] Patient Attending Physician: LOBO MUNOZ MD-CAR Primary Care Provider: BREEZY CARCAMO DR Primary Care Provider Discharge Diagnosis: Comment: Follow-up Instructions: With: Address: When: You will get a call from Dr. Munoz's office to reschedule heart cath. Be sure to take your plavix every day, and stop taking your Eliquis today. Continue all other medications. Within 2 to 3 days Discharge Instructions: Immunizations Documented During Stay: No Immunizations Found Heart Failure Discharge Instructions (if any): Stroke Related Discharge Instructions (if any): Warfarin Related Discharge Instructions (if any): Final Medication List: Other Medications ALPRAZolam (Xanax 0.25 mg oral tablet) 1 Tablet(s) Oral Every 6 Hours as needed Anxiety. ALPRAZolam (Xanax) 0.5 Milligram(s) Oral Every Day. takes at bedtime. apixaban (Eliquis 2.5 mg oral tablet) 1 Tablet(s) Oral Interval Every 12 Hours. Refills: 0. apixaban (Eliquis 5 mg oral tablet) 1 Tablet(s) Oral Two Times A Day. Begin 03/18/15. Refills: 6. bisoprolol (bisoprolol 5 mg oral tablet) 0.5 Tablet(s) Oral Two Times A Day. Refills: 0. furosemide (Lasix 20 mg oral tablet) 1 Tablet(s) Oral Every Day. Refills: 6. levothyroxine (Synthroid) 88 Microgram(s) Oral Every Day. metFORMIN-sitaGLIPtin (Janumet 50 mg-1000 mg oral tablet) 1 Tablet(s) Oral Two Times A Day. potassium chloride (K-Dur 10 oral tablet, extended release) 1 Tablet(s) Oral Every Day. Refills: 6. Patient Allergies: fentaNYL; anabolic steroids; Demerol HCl; [...] cramping, rapid heartbeat, difficulty sleeping, and nervousness. CIGARETTE SMOKING: The facts are clear, cigarette smoking will shorten your life. Smoking can cause many illnesses along the way. As a healthcare provider, we recommend that you stop smoking. Assistance with quitting is available by contacting 8-780-AWFW-NOW. This is a free resource providing counseling, [...] Be sure to sign up for the [employer] patient portal, which gives you 19/03 access to your medical information ??? including these discharge instructions ??? using your computer, smartphone, or tablet. Just go to [employer] to get started. Questions? Call . [facility] would like to thank you for allowing us to assist you with your healthcare needs. MEGHA Bell KATHLEEN BRUCE, (or customer contact representative) have received the above patient education materials/instructions and have verbalized understanding: Patient Signature _ Date/Time Patient Instructor Technical Training Signature (if needed) Date/Time Clinician/Hospital Instructor Technical Training Signature (if needed) Date/Time Electronically signed by [facility], [facility] Conversion Admissions Consultant Cerner at 12/12/2022 10:09 AM CDT documented in this encounter Plan of Treatment Not on file documented as of this encounter Visit Diagnoses Not on filedocumented in this encounter Care Teams Tree Marker Relationship Specialty Start Date End Date Cortez Kuo [address] [place] [address] PCP - General 07/11/22 documented as of this encounter
--- OUTSIDE RECORDS SUMMARY | 2025-05-07 05:53 | XMS_ITS | Encounter Summary ---
Author Organization [employer] ([place], [place], [place], [place]) Address [address] [place] [address] Care Team Providers Care Multi Disciplined Language Analyst Name Role Phone Cortez Kuo Primary Care Provider [phone] Encounter Details Date Type Department Care Team (Late st Contact Info) Description 09/25/2018 Transcribed Document [facility] [place] Family Medicine [address] [place] [address] ProviderEmelia MD [address], [place] [address] Social History Tobacco Use Types Packs/Day Years Used Date Smoking Tobacco: Never Assessed Comments Unknown Sex and Gender Information Value Date Recorded Sex Assigned at Not on file Legal Sex Female 5:22 PM CDT Gender Identity Not on file Sexual Orientation Not on file documented as of this encounter Miscellaneous Notes * Cerner Conversion Note - Emelia Contreras MD - 09/25/2018 3:19 PM AUTO HAULER Nursing Discharge Summary Entered On: 09/25/2018 15:19 EST Performed On: 09/25/2018 15:19 EST by Rowan Rodriguez RN Discharge Documentation Discharge Date/Time : 09/25/2018 19:15 EST Pia Rubio Registered Nurse - 09/25/2018 19:42 EST Discharge To : Home with ambulatory/outpatient follow-up Prescriptions Given to Patient : Electronically sent Rowan Rodriguez RN - 09/25/2018 16:26 EST Patient Disposition, General : Discharge Mode Of Departure, General Discharge : Private vehicle Accompanied By, Discharge : Daughter IV Discontinued : Yes Personal Belongings With Patient : Yes Discharge Instructions Reviewed With, Opportunity For Questions Given : Patient, Daughter Patient Education Completed : Yes Teaching Method : Explanation Teaching Evaluation : Returns demonstration, Verbalizes understanding Rowan Rodriguez RN - 09/25/2018 15:19 EST Electronically signed by Juan [facility] Conversion Career Development Engineer Cerner at 12/12/2022 9:59 AM CDT documented in this encounter Plan of Treatment Not on file documented as of this encounter Visit Diagnoses Not on filedocumented in this encounter Care Teams Multi Disciplined Language Analyst Relationship Specialty Start Date End Date Cortez Kuo [address] [place] [phone] PCP - General 07/11/22 documented as of this encounter
--- OUTSIDE RECORDS SUMMARY | 2025-05-07 05:53 | XMS_ITS | Encounter Summary ---
Author Organization [employer] ([place], [place], [place], [place]) Address [address] [place] [address] Care Team Providers Care Cpr Ambulance Driver Name Role Phone Cortez Kuo Primary Care Provider [phone] Encounter Details Date Type Department Care Team (Late st Contact Info) Description 03/30/2025 Orders Only [facility] Cardiology [address] [place] [address] Kesha Villegas Social History Tobacco Use Types Packs/Day Years [...] De Jesus rded Speak language other than [place] Irish at home Not on file 09/07/2023 Want [...] on filedocumented in this encounter Care Teams Cpr Ambulance Driver Relationship Specialty Start Date End Date Cortez Kuo [address] [place] [address] PCP - General 07/11/22 documented as of this encounter
--- OUTSIDE RECORDS SUMMARY | 2025-05-07 05:53 | XMS_ITS | Encounter Summary ---
Author Organization [employer] ([place], [place], [place], [place]) Address [address] [place] [address] Care Team Providers Care Sld Educational Aide Name Role Phone Cortez Kuo Primary Care Provider Reason for Referral * Consultation (Routine) - New Request Specialty Diagnoses / Procedures Referred By Contac t Referred To Contact Obstetrics and Gynecology Diagnoses Dysuria Female cystocele Dallas Valencia MD [address] [place] [address] Phone: tel: fax: Referral ID Status Reason Start Date Expiration Date Visits Requested Visits Authorized [id number] New Request Specialty Services Required 03/16/2025 03/16/2026 1 1 Encounter Details Date Type Department Care Team (Late st Contact Info) Description 03/16/2025 Outside Orders [facility] Urology - [address] [place] [address] Dallas Valencia MD [address] [place] [address] Female cystocele (Primary Dx); Dysuria Social History Tobacco Use Types Packs/Day Years [...] as of this encounter Plan of Treatment Scheduled Referrals Name Type Priority Associated Diagnoses Order Schedule Ambulatory referral to Obstetrics / Gynecology Outpatient Referral Routine Dysuria Female cystocele Expected: 03/16/2025, Expires: 03/16/2026 documented as of this encounter Visit Diagnoses Diagnosis Female cystocele- Primary Dysuria documented in this encounter Care Teams Sld Educational Aide Relationship Specialty Start Date End Date Cortez Kuo [address] [place] [id number] PCP - General 07/11/22 documented as of this encounter
--- OUTSIDE RECORDS SUMMARY | 2025-05-07 05:53 | XMS_ITS | Encounter Summary ---
Author Organization [employer] ([place], [place], [place], [place]) Address [address] [place] [address] Care Team Providers Care Dish Stacker Name Role Phone Cortez Kuo Primary Care Provider [phone] Encounter Details Date Type Department Care Team (Late st Contact Info) Description 03/30/2025 Orders Only [facility] Cardiology [address] [place] [address] Kesha Villegas Potassium excess (Primary Dx); Primary hypertension Social History Tobacco Use Types [...] De Jesus rded Speak language other than [place] at home Not on file 09/07/2023 Want [...] of this encounter Plan of Treatment Scheduled Orders Name Type Priority Associated Diagnoses Orde r Schedule Basic Metabolic Panel Lab Routine Primary hypertension Expected: 03/30/2025 (Approximate), Expires: 07/30/2025 documented as of this encounter Visit Diagnoses Diagnosis Potassium excess- Primary Hyperpotassemia Primary hypertension Unspecified essential hypertension documented in this encounter Care Teams Dish Stacker Relationship Specialty Start Date End Date Cortez Kuo [address] [place] [phone] PCP - General 07/11/22 documented as of this encounter
--- OUTSIDE RECORDS SUMMARY | 2025-05-07 05:53 | XMS_ITS | Encounter Summary ---
Author Organization [employer] ([place], [place], [place], [place]) Address [address] [place] [address] Care Team Providers Care Automobile Mechanic Apprentice Name Role Phone Cortez Kuo Primary Care Provider [phone] Encounter Details Date Type Department Care Team (Late st Contact Info) Description 09/25/2018 Transcribed Document [facility] [place] [place] Family Medicine [address] [place] [address] ProviderEmelia MD [address] [place], [place] [address] Social History Tobacco Use Types Packs/Day Years Used Date Smoking Tobacco: Never Assessed Comments Unknown Sex and Gender Information Value Date Recorded Sex Assigned at Not on file Legal Sex Female 5:22 PM CDT Gender Identity Not on file Sexual Orientation Not on file documented as of this encounter Miscellaneous Notes * Cerner Conversion Note - Emelia Contreras MD - 09/25/2018 7:17 PM SYRUP MIXER HELPER Event Note Entered On: 09/25/2018 19:18 EST Performed On: 09/25/2018 19:17 EST by Pia Rubio Registered Nurse Event Note Event Date/Time : 09/25/2018 18:45 EST Description of Event : pt walked to b.r. gait steady no c/o dizziness. Pia Rubio Registered Nurse - 09/25/2018 19:17 EST Electronically signed by Juan [facility] Conversion Aerospace Technician Cerner at 12/12/2022 9:53 AM CDT documented in this encounter Plan of Treatment Not on file documented as of this encounter Visit Diagnoses Not on filedocumented in this encounter Care Teams Automobile Mechanic Apprentice Relationship Specialty Start Date End Date Cortez Kuo [address] [place] [address] PCP - General 07/11/22 documented as of this encounter
--- OUTSIDE RECORDS SUMMARY | 2025-05-07 05:53 | XMS_ITS | Encounter Summary ---
Author Organization [employer] ([place], [place], [place], [place]) Address [address] [place] [address] Care Team Providers Care Manager Action Name Role Phone Cortez Kuo Primary Care Provider [phone] Encounter Details Date Type Department Care Team (Late st Contact Info) Description 09/19/2018 Transcribed Document [facility] Family Medicine [address] [place] [address] ProviderEmelia MD [address] [place], [place] [address] Social History Tobacco Use Types Packs/Day Years Used Date Smoking Tobacco: Never Assessed Comments Unknown Sex and Gender Information Value Date Recorded Sex Assigned at Not on file Legal Sex Female 5:22 PM CDT Gender Identity Not on file Sexual Orientation Not on file documented as of this encounter Miscellaneous Notes * Mandeep Conversion Note - Emelia ProviderMD - 09/19/2018 8:39 AM FUEL CELL DESIGNER Patient Education Materials Follows: documented in this encounter Plan of Treatment Not on file documented as of this encounter Visit Diagnoses Not on filedocumented in this encounter Care Teams Manager Action Relationship Specialty Start Date End Date Cortez Kuo [address] [place] [id number] PCP - General 07/11/22 documented as of this encounter
--- OUTSIDE RECORDS SUMMARY | 2025-05-07 05:53 | XMS_ITS | Encounter Summary ---
Author Organization [employer] ([place], [place], [place], [place]) Address [address] [place] [address] Care Team Providers Care Outside Contractor Sales Name Role Phone Cortez Kothari Primary Care Provider [phone] Encounter Details Date Type Department Care Team (Late st Contact Info) Description 09/25/2018 Transcribed Document [facility] Family Medicine [address] [place] [address] ProviderEmelia MD [address] [place] [address] Social History Tobacco Use Types Packs/Day Years Used Date Smoking Tobacco: Never Assessed Comments Unknown Sex and Gender Information Value Date Recorded Sex Assigned at Not on file Legal Sex Female 5:22 PM CDT Gender Identity Not on file Sexual Orientation Not on file documented as of this encounter Miscellaneous Notes * Cerner Conversion Note - Emelia Contreras MD - 09/25/2018 4:27 PM SAP BPC DEVELOPER [address] , [place] [address] Patient Copy Patient Information: Name: HANNAH ADAME Current Date: 09/25/2018 16:27:07 : 1935 Patient Address: [facility] [address] [place] [address] Patient Attending Physician: LOBO KELLY MD-CAR Primary Care Provider: CORTEZ KOTHARI MD-TUNG Primary Care Provider Discharge Diagnosis: Weight on Admission: 185 lb, 0 oz Comment: Follow-up Instructions: With: Address: When: MARCELLE SHAW [address] [address], [address] [place] [address] Business (1) 9:15 AM With: Address: When: LOBO KELLY [address], [address], [place] [address] [place] [id number] Business (1) Within 6 months Discharge Instructions: [...] 09/26/18 at 9 am. Prescription sent to [facility] isosorbide mononitrate (isosorbide mononitrate 30 mg oral tablet, extended release) 1 Tablet(s) Oral Every Day. Patient Instructions: New medication. Start 09/26/18 at 9am. Prescription sent to [facility] levothyroxine (Synthroid) 88 Microgram(s) Oral Every [...] 03/01/2006 Document Revised: 01/18/2017 Document Reviewed: 01/14/2014 [employer] Interactive Patient Education ? 2017 [facility]1 [employer]. Radial Site Care Introduction Refer to this [...] you are awake and alert. ??? Take xfwm-amn-pmqgptx and prescription medicines only as told by [...] 06/03/2014 Document Revised: 01/15/2017 Document Reviewed: 12/02/2016 [employer] Interactive Patient Education ? 2017 [employer] Medication Leaflets: isosorbide mononitrate (EYE renee [...] may report side effects to FDA at 1-649-HOJ-5817. What other drugs will affect isosorbide mononitrate? [...] interact with isosorbide mononitrate, including prescription and isxa-hrg-zhxltgn medicines, vitamins, and herbal products. Not all [...] to ensure that the information provided by mobli. ('Mult[employer]') is accurate, up-to-date, and complete, but no guarantee is made to that effect. Drug information contained herein may be time sensitive. [employer] information has been compiled for use by healthcare practitioners and consumers in the [place] and therefore [employer] does not warrant that uses outside of the [place] are appropriate, unless specifically indicated otherwise. [employer] drug information does not endorse drugs, diagnose patients or recommend therapy. [employer] drug information is an informational resource designed [...] effective or appropriate for any given patient. [employer] does not assume any responsibility for any aspect of healthcare administered with the aid of information [employer] provides. The information contained herein is not intended to cover all possible uses, directions, precautions, warnings, drug interactions, allergic reactions, or adverse effects. If you have questions about the drugs you are taking, check with your doctor, nurse or pharmacist. Copyright 8899-8757 mob[employer]. Version: 13.01. Revision Date: 11/02/2016. CIGARETTE SMOKING: The facts are clear, cigarette smoking will shorten your life. Smoking can cause many illnesses along the way. As a healthcare provider, we recommend that you stop smoking. Assistance with quitting is available by contacting 4-817-VCVE-NOW. This is a free resource providing counseling, [...] Be sure to sign up for the [employer] patient portal, which gives you 24/7 access to your medical information ??? including these discharge instructions ??? using your computer, smartphone, or tablet. Just go to [employer] to get started. Questions? Call . [facility] would like to thank you for allowing us to assist you with your healthcare needs. IMEGHA KATHLEEN BRUCE, (or mechanical service representative) have received the above patient education materials/instructions and have verbalized understanding: Patient Signature _ Date/Time Patient Auto Transmission Specialist Signature (if needed) Date/Time Clinician/Hospital Auto Transmission Specialist Signature (if needed) Date/Time Electronically signed by Juan, [facility] Conversion Senior Data Quality Analyst Cerner at 12/12/2022 10:00 AM CDT documented in this encounter Plan of Treatment Not on file documented as of this encounter Visit Diagnoses Not on filedocumented in this encounter Care Teams Outside Contractor Sales Relationship Specialty Start Date End Date Cortez Kothari [address] [place] [id number] PCP - General 07/11/22 documented as of this encounter
--- OUTSIDE RECORDS SUMMARY | 2025-05-07 05:53 | XMS_ITS | Encounter Summary ---
Author Organization [employer] ([place], [place], [place], [place]) Address [address] [place] [address] Care Team Providers Care Umbrella Tipper Machine Name Role Phone Cortez Kuo Primary Care Provider Encounter Details Date Type Department Care Team (Late st Contact Info) Description 09/25/2018 Transcribed Document [facility] Family Medicine [address] [place] [address] ProviderEmelia MD [address] [place] [address] Social History Tobacco Use Types Packs/Day Years Used Date Smoking Tobacco: Never Assessed Comments Unknown Sex and Gender Information Value Date Recorded Sex Assigned at Not on file Legal Sex Female 5:22 PM CDT Gender Identity Not on file Sexual Orientation Not on file documented as of this encounter Miscellaneous Notes * Cerner Conversion Note - Emelia Contreras MD - 09/25/2018 3:32 PM SURFACE SUPERVISOR Event Note Entered On: 09/25/2018 15:45 EST Performed On: 09/25/2018 15:32 EST by Rowan Rodriguez RN Event Note Description of Event : 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 Pt placed on monitor, call rawls within reach, family at BS. Rowan Rodriguez, RN - 09/25/2018 15:42 EST Electronically signed by Juan [facility] Conversion Residential Counselor Cerner at 12/12/2022 9:50 AM CDT documented in this encounter Plan of Treatment Not on file documented as of this encounter Visit Diagnoses Not on filedocumented in this encounter Care Teams Umbrella Tipper Machine Relationship Specialty Start Date End Date Cortez Kuo [address] [place] [address] PCP - General 07/11/22 documented as of this encounter
--- OUTSIDE RECORDS SUMMARY | 2025-05-07 05:53 | XMS_ITS | Encounter Summary ---
Author Organization [employer] ([place], [place], [place], [place]) Address [address] [place] [address] Care Team Providers Care Forest Ranger Name Role Phone Cortez Kuo Primary Care Provider [phone] Encounter Details Date Type Department Care Team (Late st Contact Info) Description 09/25/2018 Transcribed Document [facility] [place] [address] [place] [address] ProviderEmelia MD [address] [place], [place] [address] Social History Tobacco Use Types Packs/Day Years Used Date Smoking Tobacco: Never Assessed Comments Unknown Sex and Gender Information Value Date Recorded Sex Assigned at Not on file Legal Sex Female 5:22 PM CDT Gender Identity Not on file Sexual Orientation Not on file documented as of this encounter Miscellaneous Notes * Cerner Conversion Note - Emelia Contreras MD - 09/25/2018 4:09 PM DEPUTY HEAD Patient Education Materials Follows: Radial Site Care Introduction Refer to this [...] 01/18/2017 Document Reviewed: 03/01/2015 ? 2017 Elsevier Pharmacology Moderate Conscious Sedation, Adult, Care After These [...] you are awake and alert. ??? Take rxeq-ohk-nlpaiej and prescription medicines only as told by [...] 06/03/2014 Document Revised: 01/15/2017 Document Reviewed: 12/02/2016 [employer] Interactive Patient Education ? 2017 [employer] Radiology Angiogram, Care After Refer to this sheet [...] 03/01/2006 Document Revised: 01/18/2017 Document Reviewed: 01/14/2014 Elsevier Interactive Patient Education ? 2017 [employer] documented in this encounter Plan of Treatment Not on file documented as of this encounter Visit Diagnoses Not on filedocumented in this encounter Care Teams Forest Ranger Relationship Specialty Start Date End Date Cortez Kuo [address] [place] [address] PCP - General 07/11/22 documented as of this encounter
--- NOTE | 2025-05-07 06:41 | CT_ITS ---
FINAL REPORT TECHNIQUE: Thin section axial images were obtained through the right lower extremity without contrast. Reconstruction images were obtained from the axial data. Exam was performed using dose reduction technique. CLINICAL HISTORY: fall, knee pain, negative xray FINDINGS: Osteopenia limits exam. There is no acute fracture or dislocation. 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 The patellofemoral articulation is intact. No significant joint effusion is identified. There is mild soft tissue edema anterior to the patellar tendon. The patellar and quadriceps tendons are intact. Remaining soft tissues are without acute abnormality. IMPRESSION: No acute fracture. If clinical concern persists, consider MRI. Soft tissue edema anterior to the patellar tendon. Reviewed, Interpreted and Dictated by Angie Ponce MD Transcribed by Sary Crystal Authenticated and [facility]
--- NOTE | 2025-05-07 06:41 | CT_ITS ---
FINAL REPORT TECHNIQUE: Axial images through the pelvis were performed by computed tomography. Reconstructed images were obtained and reviewed. This study was performed with techniques to keep radiation doses as low as reasonably achievable, (ALARA). Individualized dose reduction techniques using automated exposure control or adjustment of mA and/or kV according to the patient's size were employed. CLINICAL HISTORY: fall, right groin pain, negative xray FINDINGS: There is no fracture of the pelvis or either hip. There is degenerative joint disease of the hips and sacroiliac joints bilaterally. No acute osseous abnormality is identified. IMPRESSION: Degenerative joint disease without acute osseous abnormality. Reviewed, Interpreted and Dictated by Angie Ponce MD Transcribed by Sary Crystal Authenticated and [facility]
== END 2025-05-07 09:16 | disposition home or self-care (01) ==
PROVIDERS: Emergency Provider Student in an Organized Health Care Education/Training Program
DX: M25.561 Pain in right knee (principal); E11.9 Type 2 diabetes mellitus without complications; I10 Essential (primary) hypertension
CPT/HCPCS: 72170; 72192; 73552; 73564; 73590; 73700; 99285

== ENCOUNTER 2025-06-27 09:20 | Outpatient (CLI) | payer MEDICARE, SELFPAY ==
--- NOTE | 2025-06-27 09:21 | XR_ITS ---
PROCEDURE INFORMATION: Exam: XR Right Tibia and Fibula Exam date and time: 06/27/2025 9:20 AM Age: 89 years old Clinical indication: Pain; Lower leg; Right; Additional info: Right tib/fib pain TECHNIQUE: Imaging protocol: Radiologic exam of the right tibia and fibula. Views: 2 views. COMPARISON: CR XR TIBIA FIBULA RT 2V 06/27/2025 9:20 AM FINDINGS: Bones/joints: There is no evidence of acute fracture.There is no evidence of malalignment or dislocation. Mild degenerative changes in the knee and the ankle Soft tissues: Normal. IMPRESSION: There is no evidence of acute fracture.There is no evidence of malalignment or dislocation.
--- NOTE | 2025-06-27 09:21 | XR_ITS ---
PROCEDURE INFORMATION: Exam: XR Right Knee Exam date and time: 06/27/2025 9:18 AM Age: 89 years old Clinical indication: Pain; Knee; Right; Additional info: Right knee pain TECHNIQUE: Imaging protocol: Radiologic exam of the right knee. Views: 3 views. COMPARISON: CT KNEE RT WO CON 05/07/2025 7:29 AM FINDINGS: Bones/joints: Mild Tricompartmental joint space narrowing and osteophyte formation consistent with degenerative changes. Chondrocalcinosis in the medial and lateral compartments of the knee. There is no evidence of acute fracture.There is no evidence of malalignment or dislocation. Soft tissues: Normal. IMPRESSION: 1. Mild Tricompartmental joint space narrowing and osteophyte formation consistent with degenerative changes. 2. There is no evidence of acute fracture.There is no evidence of malalignment or dislocation.
--- NOTE | 2025-06-27 09:21 | XR_ITS ---
PROCEDURE INFORMATION: Exam: XR Right Ankle Exam date and time: 06/27/2025 9:21 AM Age: 89 years old Clinical indication: Pain; Ankle; Right; Additional info: Right ankle pain TECHNIQUE: Imaging protocol: Radiologic exam of the right ankle. Views: 3 or more views. COMPARISON: CR XR ANKLE RT MIN 3V 06/27/2025 9:21 AM FINDINGS: Bones/joints: There is no evidence of acute fracture.There is no evidence of malalignment or dislocation. Soft tissues: Soft tissue swelling of the ankle IMPRESSION: There is no evidence of acute fracture.There is no evidence of malalignment or dislocation.
--- NOTE | 2025-06-27 09:21 | XR_ITS ---
PROCEDURE INFORMATION: Exam: XR Right Foot Exam date and time: 06/27/2025 9:22 AM Age: 89 years old Clinical indication: Pain; Foot; Right; Additional info: Right foot pain TECHNIQUE: Imaging protocol: Radiologic exam of the right foot. Views: 3 or more views. COMPARISON: CR Ankle R 06/27/2025 9:21 AM FINDINGS: Bones/joints: Degenerative changes in the 1st metatarsal phalangeal joint and IP joint. Degenerative changes in the tarsal bones and tarsometatarsal joints. There is no evidence of acute fracture.There is no evidence of malalignment or dislocation. Soft tissues: Soft tissue swelling over the dorsum of the foot IMPRESSION: 1. Degenerative changes in the 1st metatarsal phalangeal joint and IP joint. 2. There is no evidence of acute fracture.There is no evidence of malalignment or dislocation.
--- OUTSIDE RECORDS SUMMARY | 2025-06-27 09:24 | XMS_ITS | Clinical Summary ---
Author Organization [facility] Address [address] [place] [address] Care Team Providers Care Coil Winder Name Role Phone Dallas Valencia MD Primary Care Provider [phone] Allergies Active Allergy Reactions Criticality Noted Date [...] palsy 05/28/2023 06/05/2023 Candidal vulvovaginitis 05/28/2023 06/05/20 Hypertensive urgency 05/28/2023 06/05/2023 Hyponatremia 05/28/2023 06/05/2023 MRSA (methicillin resistant staph aureus) cultur e positive 05/28/2023 06/05/2023 Acquired hypothyroidism 10/07/2021 06/05/20 Overview (06/05/2023): Last Assessment & Plan: Recent tsh is minimally elevated. I would not change the dose unless tsh were over 10 Last Assessment & Plan: Recent tsh is minimally elevated. I would not change the dose unless tsh were over 10 Diastolic heart failure 05/10/2021 06/05/20 23 Overview [...] 04/29/2020 06/05/2023 Female genital prolapse 10/20/2019 06/05/20 Atrial paroxysmal tachycardia 07/29/2019 Mitral valve insufficiency 07/29/201906/05 Overview (06/05/2023): Regurgitation moderate by transesophageal echo October 2016. Resolved Problems Problem Noted Date Diagnosed Date Resolved Date Pre-syncope 05/28/2023 06/05/2023 05/17/2025 Abnormal electrocardiography 05/10/2021 06/05/2023 05/17/2025 Recurrent urinary tract infection 10/20/2019 023 05/17/2025 Family History Medical History Relation Name Comments [...] series) 2011 UKY-Diabetes: Hemoglobin A1C 12/03/2023 06/05/2023 [id number] Vaccine ( season) 2025 05/24/2022, 06/08/2021, 10/20/2020, [...] complication, with long-term current use of insulin ([facility]) from Last 3 Months or Most Recently Relevant to Health Maintenance Results * POCT glycosylated hemoglobin (Hb A1C) (06/05/2023 12:52 PM EDT) POCT Hemoglobin A1C 7.0 <5.7% Non-Diabet ic [facility] Kit Lot Number [id number] [facility] Kit Expiration Date 01/2025 [facility] Blood Venous blood specimen / Unknown 06/05/2023 12:52 PM EDT Lynne DUMONT POINT OF CARE TEST EN TER/EDIT ORDERABLES Final Result [facility] [address] [place] [address] from Last 3 Months or Most Recently Relevant to Health Maintenance Insurance [facility] MEDIC[facility] Care Teams Coil Winder Relationship Specialty Start Date End Date Dallas Valencia MD [address] [place] [address] [address] [place] [address] PCP - General 06/06/21
--- OUTSIDE RECORDS SUMMARY | 2025-06-27 09:24 | XMS_ITS | Clinical Summary ---
Author Organization [facility] Address [address] [place] [address] Care Team Providers Care History Department Chair Name Role Phone Dallas Valencia MD Primary Care Provider [phone] Allergies Active Allergy Reactions Criticality Noted Date [...] dose 75+ series) 2011 ANNUAL PHYSICAL 10/07/2021 INFLUENZA VACCINE 03/27/2025 06/16/2019, , 05/23/2017 COVID-19 Vaccine ( - 2023-2 5 season) 2025 TDAP/TD VACCINES (2 - Td or Tdap) [...] 1:43 PM EDT) Hemoglobin A1C 7.0 % [facility] Lot Number [id number] [facility] Expiration Date 09-12-2023 [facility] Blood 01/03/2022 1:43 PM EDT Jose King MD POINT OF CARE TEST ORD ERABLES Final Result [facility]
[address] [place] [address], from Last 3 Months or Most Recently Relevant to Health Maintenance Insurance [facility] MEDICARE REPLACE Care Teams History Department Chair Relationship Specialty Start Date End Date Dallas Valencia MD [address] [place] [address] PCP - General Family Medicine 06/08/21
--- OUTSIDE RECORDS SUMMARY | 2025-06-27 09:24 | XMS_ITS | Patient Health Record ---
Author [facility] Address [address] [place] [id number] Care Team Providers Care Physician Office Specialist Name Role Phone Zbigniew Kuo Primary Care Provider Allergies Allergen (clinical drug ingredient) Drug/Non Drug [...] Risk Notes Problem Diabetes mellitus type II (71687602) Diabetes mellitus type II (250.00) Active confirmed Problem Disorder of cardiovascular system (25548410) ASCVD (429.2) Active confirmed Problem Hypertension (41649080) Hypertension NOS (401.9) Active confirmed Problem Essential hypertension (39460623) Essential (primary) hypertension (I10) Active confirmed Problem Sinusitis (90609971) Sinusitis (J32.9) Active confirmed Problem Essential hypertension (16805953) Essential hypertension (I10) Active confirmed Problem Anxiety (72367760) Anxiety (F41.9) Active confi rmed Problem Uterine prolapse (80469146) Uterine prolapse (N81.4) Active confirmed Problem Plantar wart of left foot (31544284835083670) Plantar wart of left foot (B07.0) Active confirmed Problem Viral syndrome (029074347) Viral syndrome (B34.9) Active confirmed Problem 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) Arteriosclerotic cardiovascular disease (I25.10) Active confirmed Problem Type II diabetes mellitus without complication (120296420) Type 2 diabetes mellitus without complication (E11.9) Active confirmed Problem Cardiac pacemaker in situ (459247284) Status cardiac pacemaker (Z95.0) Active confirmed Problem Acquired hypothyroidism (909620577) Acquired hypothyroidism (E03.9) Active confirmed Problem Cardiac pacemaker in situ (943909435) Pacemaker (Z95.0) Active confirmed Problem Iron deficiency anemia (04906865) Iron deficiency anemia, unspecified iron deficiency (D50.9) Active confirmed Problem Gastroesophageal reflux disease (987634264) Gastroesophageal reflux disease, esophagitis presence not specified (K21.9) Active confirmed Problem Iron deficiency anemia (81019810) Other iron deficiency anemia (D50.8) Active confirmed Problem Influenza A virus (822589437) Influenza A (J10.1) Active confirmed Problem Joint pain (47583416) Arthralgia, unspecified joint (M25.50) Active confirmed Problem Chronic sinusitis (47690200) Sinusitis, unspecified chronicity, unspecified location (J32.9) Active confirmed Problem Seasonal allergic rhinitis (412166084) Seasonal allergic rhinitis, unspecified allergic rhinitis trigger (J30.2) Active confirmed Problem Hypertensive urgency (062177329) Hypertensive urgency (I16.0) Active confirmed Problem Mixed incontinence (942432609) 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) Active confirmed Problem Candidal vulvovaginitis (87960929) Vulvovaginal candidiasis (B37.3) Active confirmed Problem Injury of left lower limb (disorder) (58469794712733887) Injury of left lower extremity, initial encounter (S89.92XA) Active confirmed Problem Hemorrhagic contusion (morphologic abnormality) (473482221) Hematoma and contusion (T14.8XXA) Active confirmed Problem Abrasion of skin of left lower limb (disorder) (00406703063277) Abrasion of left lower extremity, initial encounter (S80.812A) Active confirmed Problem Heart failure (09157720) Congestive heart failure, unspecified HF chronicity, unspecified heart failure type (I50.9) Active confirmed Plan Of Treatment No Information Insurance Providers Payer Name Payer Address Payer Phone Subscriber Number Group Number Insured Name Patient Relationship to Insured Coverage Start Date Coverage End Date [employer] [address] [address] [place], [place] [id number] Hannah Adame Self - patient is the [...]
--- OUTSIDE RECORDS SUMMARY | 2025-06-27 09:24 | XMS_ITS | Data Portability ---
Author Organization [facility] Address [address] [place] [address] [address] [place] [address] Care Team Providers Care System Dispatcher Name Role Phone CORTEZ KOTHARI Primary Care Provider Assessment No assessment recorded. Plan of Treatment Reminders Order Date Submit Date Provider Last Modified By Organization Details Last Modified Time Details Appointments RECHE CK 2024 01:45P M DR THIBODEAUX Not available Not available Not available Lab None recor ded. Referral None recor ded. Procedures None recor ded. Surgeries None recor ded. Imaging None recor ded. Medication Orders estra diol 0.01% (0.1 mg/gr am) vagin al cream 2024 025 [facility], [facility] [address], [address], 03/17/2025 15:00:55 clind amyci n HCl 300 mg capsu le [address], [facility] [address], [address], 03/17/2025 14:01:54 Patient TargetsNo targets recorded. Patient Instructions Encounter Date Encounter Id Patient Instructions Last Modified By Organization Details Last Modified Time 03/22/2023 [id number] 1. Reviewed and discussed results of CT scan from [facility] on 03/12/2023. 2. Rx- Clindamycin HCL 300 mg capsule. Take 1 capsule TID for 10 days. 3. Recommends speaking to dentist about periapical abscess. 4. Follow up prn. [email or web address] Not available 03/22/2023 10:33:02 Discussed with family dentist. The swelling in her face is from the periapical abscess and tooth #6. This needs to be extracted or drained or root canal. He has decided to refer her to an dry cleaner hand. With her elevated blood glucose, sufficient treatment with antibiotics for 1 week with little improvement, and pain, this needs to be done urgently. This will be try to arrange tomorrow by her dentist. There is no evidence of sinus disease [email or web address] Not available 03/22/2023 18:48:28 Reason for Referral None Reported. Results Created Date Observation Date Name Description Value Unit Range Abnormal Flag Note LastModifiedBy Organization Detail LastModifiedTime 04/13/2003/12/2023 CT, sinus es, w/o contr ast No observ ation record ed. BARCODE Not Available 2022 15:08:06 04/13/20 23 03/12/2023 CT, sinus es, w/o contr ast No observ ation record ed. BARCODE Not Available 2022 16:10:56 Result Notes None recorded. Problems Name Problem SNOMED Code Status Onset Date Resolution Date Notes Provider Name and Address Organization Details Recorded Time Midline cystocele 089694073 Active 2024 ARRON ESTRADA MD [address] [place] [address], [phone], [facility] 14:49:03 Genitourina ry syndrome of menopause 1471277192495 9104 Active 2024 ARRON ESTRADA MD [address] [place] [address], [phone], [facility] 14:49:59 Problem Notes None recorded. Procedures Surgical History Date Name Laterality Status Provider Name and Address Organization Details Recorded Time 04/14/20 25 Pessary cleaning completed ARRON THIBODEAUX MD [address] [place] [address], [phone], [facility] 04/14/2025 13:34:16 03/17/20 25 Pessary Insertion completed ARRON THIBODEAUX MD [address] [place] [address], [phone], [facility] 03/17/2025 14:49:32 07/02/20 13 Unlisted px accessory sinus completed Adamaris Evans [facility] 11/05/2017 10:22:32 Appendectomy completed Adamaris Evans [facility] 11/05/2017 10:22:14 Removal of gallbladder completed Adamaris Evans [facility] 11/05/2017 10:22:19 cardiac pacemaker replaced completed Cecilia Doyle [facility] 03/17/2025 14:19:40 operative procedure on hand completed Cecilia Doyle [facility] 03/17/2025 14:19:28 Imaging Results None recorded. Procedure Notes None recorded. 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 8 10:20:54 578904 Product containin g penicilli n (product) medicatio n Not available Not available Not available 07/21/20162009 52910 8001 SNOMED Adamaris Alonzo n [facility] 8 10:20:55 042447 Substance with sulfonami de structure and antibacte rial mechanism of action (substanc e) medicatio n Not available Not available Not available 07/21/20162009 29317 8003 SNOMED Adamaris Goodmanso n [facility] 8 10:20:58 906267 fentanyl medicatio n Not available Not available Not available 03/17/2025 4337 RxNorm Cecilia Doyle [facility] 13:58:24 Medications Name Sig Start Date Stop Date Status Note LastModified by Organization Details LastModified Time culture-w ound USE DIRECTED 03/22 completed Not Available Not Available Not Available spray kit 5ml USE FIVE ML FOR MEDICATI ON ADMINIST RATION WITH SPRAY BOTTLE- DIRECTIO NS FOR USE (SK), #2 30ML SPRAY BOTTLES, #1 FUNNEL, SALINE 5ML VIALS #150ML 03/22 completed Not Available Not Available Not Available gentamici n/vancomy jackie 60/35mg xylitol capsule [49557] MIX THE CONTENTS OF 1 CAPSULE WITH DILUENT. APPLY TO AFFECTED AREAS. PERFORM ONCE DAILY 03/22 completed Not Available Not Available Not Available Xanax 0.5 mg tablet Take 1 tablet 3 times a day by oral route. active Not Available Not Available No t Available potassium chloride ER 10 mEq capsule,e xtended release 03/17 completed Not Available Not Available Not Available doxycycli ne hyclate 100 mg capsule 03/22 completed Not Available Not Available Not Available cefuroxim e axetil 250 mg tablet 03/22 completed Not Available Not Available Not Available ketoconaz ole 2 % shampoo 03/22 completed Not Available Not Available Not Available clindamyc in HCl 300 mg capsule Take 1 capsule 3 times a day by oral route as directed for 10 days. 03/17 completed Not Available Not Available Not Available azithromy jackie 250 mg tablet 03/22 completed Not Available Not Available Not Available fluconazo le 150 mg tablet 03/22 completed Not Available Not Available Not Available hydrocodo ne 5 mg-acetam inophen 325 mg tablet 03/22 completed Not Available Not Available Not Available Lasix 40 mg tablet Take 1 tablet every day by oral route. active Not Available Not Available No t Available fluconazo le 200 mg tablet 03/22 completed Not Available Not Available Not Available lisinopri l 20 mg tablet active Not Available Not Available Not Available prednison e 20 mg tablet 03/22 completed Not Available Not Available Not Available Synthroid 100 mcg tablet Take 1 tablet every day by oral route. active Not Available Not Available No t Available fluoroura cil 5 % topical cream 11/06 completed Not Available Not Available Not Available amlodipin e 2.5 mg tablet Two times a day 11/06 completed Frequenc y: bid;Alt Frequenc y: as direct.; Medicati on Descript ion: amlodipi ne; Dosage:1 ; Route:or al; refills: 0; Quantity :30 tablet Not Available Not Available Not Available potassium chloride ER 10 mEq tablet,ex tended release active Not Available Not Available Not Available clopidogr el 75 mg tablet 03/22 completed Not Available Not Available Not Available tramadol 50 mg tablet 03/22 completed Not Available Not Available Not Available triamcino lone acetonide 0.1 % topical cream 03/22 completed Not Available Not Available Not Available glimepiri de 1 mg tablet Take 1 tablet every day by oral route. active Not Available Not Available No t Available bisoprolo l fumarate 5 mg tablet active Not Available Not Available Not Available famciclov ir 500 mg tablet 03/22 completed Not Available Not Available Not Available meclizine 25 mg tablet Three times a day 11/06 completed Duration : 30 days;Ins truction s: use up to TID as needed;F requency : tid;Alt Frequenc y: prn;Medi cation Descript ion: meclizin e; Dosage:1 ; Route:or al; refills: 1; Quantity :60 tablet Not Available Not Available Not Available cephalexi n 500 mg capsule 03/22 completed Not Available Not Available Not Available Cipro 500 mg tablet Take 1 tablet twice a day by oral route for 14 days. 03/22 completed Not Available Not Available Not Available Proctofoa m HC 1 %-1 % 03/22 completed Not Available Not Available Not Available Synthroid 88 mcg tablet Daily 03/22 completed Frequenc y: daily;Al t Frequenc y: as direct.; Medicati on Descript ion: levothyr oxine; Dosage:1 ; Route:or al; refills: 0; Quantity :30 tablet Not Available Not Available Not Available flecainid e 100 mg tablet Two times a day 11/06 completed Frequenc y: bid;Alt Frequenc y: as direct.; Medicati on Descript ion: flecaini de; Dosage:1 ; Route:or al; refills: 0; Quantity :60 tablet Not Available Not Available Not Available metoprolo l tartrate 50 mg tablet Two times a day 11/06 completed Instruct ions: 2 TABS AM & 1 TAB PM;Frequ ency: bid;Alt Frequenc y: as direct.; Medicati on Descript ion: metoprol ol; Dosage:1 ; Route:or al; refills: 5; Quantity :90 tablet Not Available Not Available Not Available Synthroid 75 mcg tablet 03/22 completed Not Available Not Available Not Available mometason e 50 mcg/actua tion nasal spray active Not Available Not Available Not Available sertralin e 25 mg tablet 11/06 completed Not Available Not Available Not Available Avalide 300 mg-12.5 mg tablet Daily 11/06 completed Frequenc y: daily;Al t Frequenc y: as direct.; Medicati on Descript ion: hydrochl orothiaz dixon-irbe sartan; Dosage:1 ; Route:or al; refills: 3; Quantity :90 tablet Not Available Not Available Not Available hydrochlo rothiazid e 25 mg tablet Take 1 tablet every day by oral route. active Not Available Not Available No t Available mupirocin 2 % topical ointment active Not Available Not Available Not Available digoxin 125 mcg (0.125 mg) tablet Daily 11/06 completed Frequenc y: daily;Me dication Descript ion: digoxin; Dosage:1 ; Route:or al; refills: 4; Quantity :30 tablet Not Available Not Available Not Available furosemid e 20 mg tablet Take 2 tablets every day by oral route. active Not Available Not Available No t Available estradiol 0.01% (0.1 mg/gram) vaginal cream Insert 0.5 g twice a week by vaginal route. 2024 active Not Available Not Available Not Avai lable methylpre dnisolone 4 mg tablets in a dose pack 03/22 completed Not Available Not Available Not Available cefdinir 300 mg capsule 03/22 completed Not Available Not Available Not Available Lipitor 10 mg tablet Take 1 tablet every day by oral route. active Not Available Not Available No t Available fluticaso ne propionat e 50 mcg/actua tion nasal spray,jennie pension 03/22 completed Not Available Not Available Not Available doxycycli ne hyclate 100 mg tablet 03/22 completed Not Available Not Available Not Available clindamyc in phosphate 1 % topical solution 03/22 completed Not Available Not Available Not Available Bactrim DS 800 mg-160 mg tablet Take 1 tablet every 12 hours by oral route. 04/14 completed hasn't taken today but had been taking for 5 day prior. Not Available Not Available Not Available nitrofura ntoin monohydra te/macroc rystals 100 mg capsule Two times a day active Not Available Not Available No t Available Vitamin D active Not Available Not Celeste ilable Not Available Janumet 50 mg-500 mg tablet 11/06 completed Medicati on Descript ion: metformi n-sitagl iptin; Route:or al; refills: 0 Not Available Not Available Not Available magnesium glycinate active Not Available Not Available No t Available Eliquis 5 mg tablet active Not Available Not Available No t Available magnesium 120 mg (as glycinate ) capsule Take by oral route. active Not Available Not Available No t Available Vitals Date Recorded Body weight Body mass index (BMI) Body height Provider Name and Address Organization Details Last Updated DateTime 03/17/2025 14796.7 g 29.4 kg/m2 162.56 cm Cecilia Doyle [facility] 03/17/2025 13:56:40 Date Recorded Body height Body mass index (BMI) Body weight Body temperature Provider Name and Address Organization Details Last Updated DateTime 03/22/2023 162.56 cm 30.1 kg/m2 11911.41 g 97.4 [degF] Nadine Martinez [facility] 03/22/2023 09:57:44 Date Recorded Body height Body mass index (BMI) Body weight Systolic And Diastolic Provider Name and Address Organization Details Last Updated DateTime 04/14/2025 162.56 cm 29.4 kg/m2 69306.3 g 128/70 mm[Hg] Cecilia Doyle [facility] 04/14/2025 13:13:04 Social History Question Answer Notes LastModified by Organizat ion Details LastModified Time Tobacco Smoking Status Former Smoker Cecilia Doyle [facility] 03/17/2025 14:17:03 What Is Your Level Of Caffeine Consumption? None Information not available 03/17/2025 When Did You Quit Smoking? 16+yearssin celastcigar ette Stopped In 40's Information not available 03/17/2025 Exposure To Smoke No [email or web address] Information not available 11/05/2017 What Was The Date Of Your Most Recent Tobacco Screening? 11/05/2017 Information not available 10/14/2019 What Is Your Relationship Status? Information not available 03/17/2025 Has Tobacco Cessation Counseling Been Provided? No Information not available 03/17/2025 How Many Years Have You Smoked Tobacco? 15 Information not available 03/17/2025 Sex: Unknown Functional Status Question Answer Note LastModified by Recovr ion Details LastModified Time How many times per week do you consume alcohol? Less than 1 time per week once a year Information not available 03/17/2025 Do you use any illicit or recreational drugs? No Information not available 03/17/2025 Do you or have you ever used any other forms of tobacco or nicotine? No Information not available 03/17/2025 What is your level of alcohol consumption? Occasional [email or web address] Information not available 11/05/2017 Mental Status None recorded. Family History Relationship Description Onset Age of this Age Resolved Age Notes LastModified by Organization Details LastModified Time Maternal Grandmother Diabetes mellitus Not available 2024 14:15:46 Father Heart disease [email or web address] Not available 10:21:17 Father Family history of Hypertension [email or web address] Not available 10:39:20 Father Myocardial infarction Not available 03/17 14:15:30 Mother Heart disease [email or web address] Not available 11/06 10:38:51 Mother Family history of Hypertension [email or web address] Not available 10:39:20 Daughter Diabetes mellitus Not available 2024 14:15:50 Daughter Diabetes mellitus Not available 2024 14:15:52 Notes:ABDOMINAL ANUERYSM (MO M & DAD) Medical History Condition Response Diabetes Y Heart Problems Y Bleeding Disorder N Hyperlipidemia Y Cancer N Migraines Y Thyroid Problems Y Sleep Disorder Y Anesthesia Complications N Heart Disease Y Hypertension Y Gynecological History Statement/Question Response Abnormal Pap N If Post Menopausal, Age at Menopause 41 Date of Last Mammogram Date of Last Colonoscopy Most Recent Bone Density Sexually Active? N Post Menopausal Bleeding N Date of Last Pap Smear Current Control Method Menopause Ovarian Cancer Screening? N Obstetrics History GPAL:G 2 P 2 0 0 2 Type Value Full Term 2 Living 2 Total 2 Immunizations Vaccine Type Date Status Note Provider Nam e and Address Organization Details Recorded Time Tdap 12/28/2016 completed Not Available [facility] 04/14/2025 13:02:31 Influenza, high-dose, trivalent, PF 05/23/2017 completed Not Available [facility] 2024 13:02:31 Influenza, high-dose, trivalent, PF 05/27/2018 completed Not Available [facility] 2024 13:02:31 Influenza, high-dose, trivalent, PF 06/16/2019 completed Not Available [facility] 2024 13:02:31 COVID-19, mRNA, LNP-S, PF, 100 mcg/0.5mL dose or 50 mcg/0.25mL dose 09/03/2020 completed Not Available [facility] 13:02:31 COVID-19, mRNA, LNP-S, PF, 100 mcg/0.5mL dose or 50 mcg/0.25mL dose 10/20/2020 completed Not Available [facility] 13:02:31 COVID-19, mRNA, LNP-S, PF, 100 mcg/0.5mL dose or 50 mcg/0.25mL dose 06/08/2021 completed Not Available [facility] 5 13:02:31 COVID-19, mRNA, LNP-S, bivalent, PF, 50 mcg/0.5 mL or 25mcg/0.25 mL dose 05/24/2022 completed Not Available [facility] 13:02:31 Influenza, high-dose, quadrivalent, PF 06/22/2023 completed Not Available [facility] 13:02:31 COVID-19, mRNA, LNP-S, PF, 50 mcg/0.5 mL 07/26/2023 completed Not Available [facility] 5 13:02:31 Past Encounters Encounter ID Performer Location Encounter Start Date Encounter Closed Date Diagnosis/Indication Diagnosis SNOMED-CT Code Diagnosis ICD10 Code Diagnosis IMO Codes Diagnosis Note [id number] CORTEZ ETIENNE MD [facility] [address] [place] [address] 03/22/2023 09:40:42 03/22/2023 15:24:47 Periapical abscess 522302272 K04.7 CT scan from [facility] on 03/12/2023 showed: No evidence of acute sinusitis. Periapical abscess surroundin g tooth #6. [id number] MD FLO ERNANDEZ [address] [place] [address] 03/17/2025 13:47:49 03/17/2025 16:09:10 Midline cystocele 372058585 N81.11 879303 reviewed perineal care. encourage regular bowel movements and timed urination. Genitourin gabi syndrome of menopause 2561356744 2858129 N95.8 [id number] Treatment usually involves medication s that increase the estrogen supply to the vulva and vagina. With vaginal administra tion, there is minimal systemic absorption . This is safe to use in women who have had breast cancer, abnormal mammograms or family history of breast cancer. Benefits of vaginal estrogen include increased lubricatio n, protection of bladder, decreased burning or pruritus, increased strength to the vaginal tissue. Options include estrogen pills, cream, ring. Side effects may include increased discharge, discomfort with applicatio n and need for longterm therapy. Perineal care : Dove sensitive skin bar soap only, do not clean in vagina, no over the counter feminine products or personal wipes, avoid body washes on perineum, tub baths with Epsom salts only, cotton pads only changing frequently , cotton underwear only, consider no underwear at night if possible Habits: manage bowel habits, probiotic supplement s or natural like sauerkraut , kimchi, yogurt, natural pickles Lubricants that contain hyaluronic acid, Vit E oil or unfraction ated coconut oil [id number] MD FLO ERNANDEZ [address] [place] [address] 04/14/2025 13:01:23 04/14/2025 16:20:33 Midline cystocele 887923409 N81.11 682345 rws removed and cleaned. reviewed constipati on strategies . f/u 3 months. Health Concerns Section Related Observation LastModified by Organization Detai ls LastModified Time None Recorded Concern Status LastModified by Organization Details LastModified Time None Recorded Advance Directives Directive None Recorded Payers Insurance Date Sequence Insurance Name Policy Number Policy Driver Covered Member ID Driver Member ID Guarantor Name 05/07/2025 1 [facility] (MEDICARE REPLACEMENT/ ADVANTAGE - PPO) [id number] Hannah Adame [id number] Hannah Adame Notes Date Note Type Note Provider Name and Address Organization Details Recorded Time 03/22/2023 text/html Hannah is an 87 year old female who comes in today for consultation at the request of Dr. Cortez Kothari for an evaluation of facial pain. She is accompanied by her daughter today. Hannah states that she has been experiencing extreme pain on the right side of her face for a little over a week now. The pain has shifted from her v2 nerve on her cheek to her v1 nerve in her forehead. She is currently on her last day of Cefdinir. Hannah mentions that she was diagnosed with bells palsy and shingles in the past two weeks. She has no evidence of bells palsy today. Hannah states that her blood sugar levels have been high recently. CT scan from [facility] on 03/12/2023 showed: No evidence of acute sinusitis. Periapical abscess surrounding tooth #6. CORTEZ ETIENNE MD [address] [place] [address], [phone], [facility] 03/22/2023 18:48:40 03/17/2025 text/html 89yr old female presents for concerns of a prolapse. 89-year-old female para 2 postmenopausal for many years. She was diagnosed with cystocele approximately 8 years ago. She was offered a pessary but declined. Over the past few months the symptoms have gotten worse. She reports difficulty sitting still. It bulges down with standing moving coughing. She denies any urinary incontinence. She reports normal bowel movements. She denies any vaginal bleeding or discharge. She is being treated by her PCP for UTI. She has a history of x 2. She denies any knowledge of forceps or episiotomies. She denies any history of female surgeries. ARRON THIBODEAUX MD [facility] [place], [address], [facility] 03/17/2025 14:51:47 04/14/2025 text/html 89yr old female para 2 presents for Midline Cystocele and Genitourinary syndrome of menopause. She started estradiol 0.01% vaginal cream twice weekly on 03/17. Patient is experiencing some vulvar pressure with sitting. She denies any vaginal bleeding or discharge. She is experiencing chronic constipation. MD Mellissa [place], [address], [facility] 04/14/2025 13:35:14 OBGyn Episode No OBEpisode recorded.
== END 2025-06-27 23:59 | disposition home or self-care (01) ==
LOC: RAD 09:21
PROVIDERS: PCP Family Medicine; Visit Provider Physician Assistant Surgical
DX: M25.761 Osteophyte, right knee (principal); M25.861 Other specified joint disorders, right knee; M19.071 Primary osteoarthritis, right ankle and foot; M25.571 Pain in right ankle and joints of right foot
CPT/HCPCS: 73562; 73590; 73610; 73630

== ENCOUNTER 2025-06-30 12:53 | Outpatient (CLI) | payer MEDICARE, SELFPAY ==
--- NOTE | 2025-06-30 13:00 | CA_ITS ---
FINAL REPORT TECHNIQUE: Multiple transverse and longitudinal images were performed of the right femoral-popliteal deep venous system with augmentation and compression maneuvers. CLINICAL HISTORY: Right ankle edema s/p fall 05/11/25 FINDINGS: Right lower extremity duplex ultrasound demonstrates normal flow in the deep venous system. There is no abnormal echogenicity to suggest thrombus. There is normal compression and augmentation. IMPRESSION: No evidence of right DVT. Reviewed, Interpreted and Dictated by Angie Ponce MD Transcribed by Varsha Ramirez Authenticated and [facility]
--- OUTSIDE RECORDS SUMMARY | 2025-06-30 13:02 | XMS_ITS | Patient Health Record ---
[facility] [address] [place] [id number] Care Team Providers Care Report Writer Name Role Phone Zbigniew Kuo Primary Care Provider [phone] Allergies Allergen (clinical drug ingredient) Drug/Non Drug [...] Risk Notes Problem Diabetes mellitus type II (12610725) Diabetes mellitus type II (250.00) Active confirmed Problem Disorder of cardiovascular system (22349590) ASCVD (429.2) Active confirmed Problem Hypertension (68715515) Hypertension NOS (401.9) Active confirmed Problem Essential hypertension (47459837) Essential (primary) hypertension (I10) Active confirmed Problem Sinusitis (57164487) Sinusitis (J32.9) Active confirmed Problem Essential hypertension (98288116) Essential hypertension (I10) Active confirmed Problem Anxiety (37481543) Anxiety (F41.9) Active confi rmed Problem Uterine prolapse (42173685) Uterine prolapse (N81.4) Active confirmed Problem Plantar wart of left foot (01775501142263742) Plantar wart of left foot (B07.0) Active confirmed Problem Viral syndrome (170298778) Viral syndrome (B34.9) Active confirmed Problem 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) Active confirmed Problem Type II diabetes mellitus without complication (508049623) Type 2 diabetes mellitus without complication (E11.9) Active confirmed Problem Cardiac pacemaker in situ (360133187) Status cardiac pacemaker (Z95.0) Active confirmed Problem Acquired hypothyroidism (084638214) Acquired hypothyroidism (E03.9) Active confirmed Problem Cardiac pacemaker in situ (799118431) Pacemaker (Z95.0) Active confirmed Problem Iron deficiency anemia (92967154) Iron deficiency anemia, unspecified iron deficiency (D50.9) Active confirmed Problem Gastroesophageal reflux disease (003100732) Gastroesophageal reflux disease, esophagitis presence not specified (K21.9) Active confirmed Problem Iron deficiency anemia (38585506) Other iron deficiency anemia (D50.8) Active confirmed Problem Influenza A virus (900540084) Influenza A (J10.1) Active confirmed Problem Joint pain (59478775) Arthralgia, unspecified joint (M25.50) Active confirmed Problem Chronic sinusitis (27081109) Sinusitis, unspecified chronicity, unspecified location (J32.9) Active confirmed Problem Seasonal allergic rhinitis (535167760) Seasonal allergic rhinitis, unspecified allergic rhinitis trigger (J30.2) Active confirmed Problem Hypertensive urgency (011619737) Hypertensive urgency (I16.0) Active confirmed Problem Mixed incontinence (085316473) 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) Active confirmed Problem Candidal vulvovaginitis (61190716) Vulvovaginal candidiasis (B37.3) Active confirmed Problem Injury of left lower limb (disorder) (90528911369112085) Injury of left lower extremity, initial encounter (S89.92XA) Active confirmed Problem Hemorrhagic contusion (morphologic abnormality) (653782826) Hematoma and contusion (T14.8XXA) Active confirmed Problem Abrasion of skin of left lower limb (disorder) (54120220370316) Abrasion of left lower extremity, initial encounter (S80.812A) Active confirmed Problem Heart failure (63733063) Congestive heart failure, unspecified HF chronicity, unspecified heart failure type (I50.9) Active confirmed Plan Of Treatment No Information Insurance Providers Payer Name Payer Address Payer Phone Subscriber Number Group Number Insured Name Patient Relationship to Insured Coverage Start Date Coverage End Date [employer] [address] [address] [place], [place] [id number] Hannah Adame Self - patient is the [...]
--- OUTSIDE RECORDS SUMMARY | 2025-06-30 13:02 | XMS_ITS | Clinical Summary ---
Author Organization [facility] Address [address] [place] [address] Care Team Providers Care Manufacturing Lead Name Role Phone Dallas Valencia MD Primary Care Provider [phone] Allergies Active Allergy Reactions Criticality Noted Date [...] series) 2011 [facility]-Diabetes: Hemoglobin A1C 12/03/2023 06/05/2023 [id number] Vaccine ( season) 2025 05/24/2022, 06/08/2021, 10/20/2020, [...] complication, with long-term current use of insulin ([facility]) from Last 3 Months or Most Recently Relevant to Health Maintenance Results * POCT glycosylated hemoglobin (Hb A1C) (06/05/2023 12:52 PM EDT) POCT Hemoglobin A1C 7.0 <5.7% Non-Diabet ic [facility] Kit Lot Number [id number] [facility] Kit Expiration Date 01/2025 [facility] Blood Venous blood specimen / Unknown 06/05/2023 12:52 PM EDT Lynne DUMONT POINT OF CARE TEST EN TER/EDIT ORDERABLES Final Result [facility] [address] [place] [address] from Last 3 Months or Most Recently Relevant to Health Maintenance Insurance [facility] MEDIC[facility] Care Teams Manufacturing Lead Relationship Specialty Start Date End Date Dallas Valencia MD [address] [place] [address] [address] [place] [address] PCP - General 06/06/21
--- OUTSIDE RECORDS SUMMARY | 2025-06-30 13:02 | XMS_ITS | Clinical Summary ---
Author Organization [facility] Address [address] [place] [address] Care Team Providers Care Grain Elevator Clerk Name Role Phone Dallas Valencia MD Primary Care Provider [phone] Allergies Active Allergy Reactions Criticality Noted Date [...] 1:43 PM EDT) Hemoglobin A1C 7.0 % [facility] Lot Number [id number] [facility] Expiration Date 09-12-2023 [facility] Blood 01/03/2022 1:43 PM EDT Jose King MD POINT OF CARE TEST ORD ERABLES Final Result [facility]
[address] [place] [address], from Last 3 Months or Most Recently Relevant to Health Maintenance Insurance [facility] MEDICARE REPLACE Care Teams Grain Elevator Clerk Relationship Specialty Start Date End Date Dallas Valencia MD [address] [facility] [place] [address] PCP - General Family Medicine 06/08/21
== END 2025-06-30 23:59 | disposition home or self-care (01) ==
LOC: RT 12:54
PROVIDERS: PCP Family Medicine; Visit Provider Physician Assistant
DX: M79.661 Pain in right lower leg (principal); R60.0 Localized edema
CPT/HCPCS: 93971